=== PATIENT | male | born 1980 | race African-American/Black ===

== ENCOUNTER → 2018-10-26 | Outpatient (CLI) | payer OTHER ==
[2018-04-11 10:52] VITALS: BP 103/57
[~2018-10-26] MED LIST: AMOX1TAB58 PO; BACL20TA PO; DALF10TA2 PO; FAMO20TA5 PO; SOLI10TA2 PO; TAMS0.4C2 PO; mybetriq PO
--- NOTE | 2018-10-26 17:09 | KCIC ---
LUMBAR SPINE MIN 4V History: Acute left-sided back pain without sciatica Comparison: None. Findings: 5 views of the lumbar spine are submitted. There is grade 1 anterior spondylolisthesis at L4-5 and minimal posterior subluxation L5 relative to S1 and L1 relative to L2. There is multilevel lumbar facet degenerative change. There is cigh-im-mrrigkgu degenerative disc disease at L5-S1 and minimally at L4-5. There is retained stool in segments of the colon. There is negligible lumbar dextroscoliosis. Impression: 1. There is mild abnormal alignment as stated, most notable grade 1 anterior spondylolisthesis L4-5. There is multilevel facet degenerative change. There is degenerative disc disease greatest at L5-S1. Electronically signed by: Jacobo Padilla MD (10/26/2018 5:06 PM) [facility]
== END | disposition home or self-care (01) ==
LOC: KCIC 16:12
PROVIDERS: ATTEND Family Medicine
DX: M43.16 Spondylolisthesis, lumbar region (principal); M51.37 Other intervertebral disc degeneration, lumbosacral region; K56.41 Fecal impaction
CPT/HCPCS: 72110

== ENCOUNTER → 2019-09-03 | Outpatient (CLI) | payer OTHER ==
[2018-04-11 10:52] VITALS: BP 103/57
--- NOTE | 2019-09-03 16:39 | RAD ---
CHEST PA LATERAL History: Lymphedema Comparison: April 09, 2018 Findings: 2 views of the chest are submitted. Pericardial cardiac silhouette is unchanged. There is no significant dependent pleural fluid, pneumothorax, or lobar infiltrate. Impression: 1. No acute radiographic abnormality is identified. Electronically signed by: Jacobo Padilla MD (09/03/2019 4:36 PM) [id number]
== END | disposition home or self-care (01) ==
LOC: RAD 15:46
PROVIDERS: ATTEND Family Medicine
DX: I89.0 Lymphedema, not elsewhere classified (principal)
CPT/HCPCS: 71046

== ENCOUNTER 2020-01-04 18:11 | Inpatient (IN) | payer OTHER ==
[~2020-01-04] VITALS: Ht 185.4 cm; Wt 163.9 kg
[2020-01-04] MEDS ORDERED: ACETAMINOPHEN 500 MG TABLET PO ONE (18:45)
[2020-01-04 19:28] LABS: INFLUENZA A PATIENT NEGATIVE (NEGATIVE); INFLUENZA B PATIENT NEGATIVE (NEGATIVE)
[2020-01-04] MEDS: NORMAL SALINE IV SCH ×2 (19:30→21:04)
[2020-01-04 19:39] LABS: BASO # 0.1 x10^3/uL (0.0-0.2); BASO % 1 % (0-3); EOS # 0.2 x10^3/uL (0.0-0.7); EOS % 2 % (0-3); HEMATOCRIT 44.9 % (39.0-53.0); HEMOGLOBIN 15.3 g/dL (13.0-17.5); LYMPH # 0.9 x10^3/uL (1.0-4.8); LYMPH % 8 % (24-48); MEAN CORPUSCULAR HEMOGLOBIN 28 pg (25-35); MEAN CORPUSCULAR HGB CONC 34 g/dL (31-37); MEAN CORPUSCULAR VOLUME 81 fL (79-100); MONO # 1.4 x10^3/uL (0.0-1.1); MONO % 13 % (0-9); NEUT # 8.1 x10^3/uL (1.8-7.7); NEUT % 76 % (31-73); PLATELET COUNT 189 x10^3/uL (140-400); RED BLOOD COUNT 5.53 x10^6/uL (4.30-5.70); RED CELL DISTRIBUTION WIDTH 14.9 % (11.5-14.5); WHITE BLOOD COUNT 10.6 x10^3/uL (4.0-11.0)
[2020-01-04 19:49] LABS: PROTHROMBIN TIME PATIENT 14.1 SEC (11.7-14.0)
--- NOTE | 2020-01-04 19:53 | PHYS DOC ---
Past Medical History Past Medical History: Other Additional Past Medical Histor: MS, SPINAL STENOSIS (HAWA SAUNDERS APRN) Past Surgical History: Other Additional Past Surgical Histo: ADULT CIRCUMCISION (HAWA SAUNDERS APRN) Smoking Status: Former Smoker Alcohol Use: None Drug Use: None (HAWA SAUNDERS APRN) General Adult EDM: Chief Complaint: WEAKNESS/GENERALIZED HPI: HPI: Patient is a 39 year old male with history of MS who presents to the ED today complaining of generalized weakness. Patient states symptoms began 3 days ago. He states he is usually able to get up and ambulate and do his activities of daily living with no issues. He states for the last 3 days has been unable to get up and move. He states his mother typically helps him but he has been unable to get as much help from the mother because he is immobile right now. He also states he has a wound on his buttocks. Patient denies any fever though he is febrile in the ED. Denies any coughing or congestion. (HAWA SAUNDERS APRN) Review of Systems: Review of Systems: Constitutional: Reports generalized weakness denies fever or chills. [] Eyes: Denies change in visual acuity. [] HENT: Denies nasal congestion or sore throat. [] Respiratory: Denies cough or shortness of breath. [] Cardiovascular: Denies chest pain or edema. [] GI: Denies abdominal pain, nausea, vomiting, bloody stools or diarrhea. [] : Denies dysuria. [] Musculoskeletal: Denies back pain or joint pain. [] Integument: Denies rash. [] Neurologic: Denies headache, focal weakness or sensory changes. Psychiatric: Denies depression or anxiety. [] (HAWA SAUNDERS APRN) Heart Score: Risk Factors: Risk Factors: DM, Current or recent (<one month) smoker, HTN, HLP, family history of CAD, obesity. Risk Scores: Score 0 - 3: 2.5% MACE over next 6 weeks - Discharge Home Score 4 - 6: 20.3% MACE over next 6 weeks - Admit for Clinical Observation Score 7 - 10: 72.7% MACE over next 6 weeks - Early Invasive Strategies (HAWA SAUNDERS APRN) Current Medications: Current Medications Medications (Trade) Dose Ordered Sig/Hayde Start Time Stop Time Status Last Admin Dose Admin Acetaminophen (Tylenol) 1,000 mg 1X ONCE 01/04/20 18:45 01/04/20 18:46 DC 01/04/20 18:49 1,000 MG Sodium Chloride 2,400 ml @ 2,400 mls/hr Q1H 01/04/20 18:35 01/04/20 19:30 2,400 MLS/HR (HAWA SAUNDERS APRN) Allergies: Allergies: Allergies Coded Allergies Type Severity Reaction Last Updated Verified No Known Drug Allergies 04/09/18 No (HAWA SAUNDERS APRN) Physical Exam: PE: Constitutional: Well developed, well nourished, no acute distress, non-toxic appearance. [] HENT: Normocephalic, atraumatic, bilateral external ears normal, oropharynx moist, no oral exudates, nose normal. [] Eyes: PERRLA, EOMI, conjunctiva normal, no discharge. [] Neck: Normal range of motion, no tenderness, supple, no stridor. [] Cardiovascular:Heart rate regular rhythm, no murmur [] Lungs & Thorax: Bilateral breath sounds clear to auscultation [] Abdomen: Bowel sounds normal, soft, no tenderness, no masses, no pulsatile masses. [] Skin: Warm, dry, stage I ulcer on the buttocks 5X2cm Back: No tenderness, no CVA tenderness. [] Extremities: No tenderness, no cyanosis, no clubbing, ROM intact, no edema. [] Neurologic: Alert and oriented X 3, normal motor function, normal sensory function, no focal deficits noted. Cranial nerves II through XII intact Psychologic: Affect normal, judgement normal, mood normal. [] (HAWA SAUNDERS [employer]ISON GUARD) Current Patient Data: Labs: Laboratory Tests Test 01/04/20 18:55 01/04/20 19:29 Influenza Type A Antigen Negative (NEGATIVE) Influenza Type B Antigen Negative (NEGATIVE) White Blood Count 10.6 x10^3/uL (4.0-11.0) Red Blood Count 5.53 x10^6/uL (4.30-5.70) Hemoglobin 15.3 g/dL (13.0-17.5) Hematocrit 44.9 % (39.0-53.0) Mean Corpuscular Volume 81 fL (79-100) Mean Corpuscular Hemoglobin 28 pg (25-35) Mean Corpuscular Hemoglobin Concent 34 g/dL (31-37) Red Cell Distribution Width 14.9 % (11.5-14.5) H Platelet Count 189 x10^3/uL (140-400) Neutrophils (%) (Auto) 76 % (31-73) H Lymphocytes (%) (Auto) 8 % (24-48) L Monocytes (%) (Auto) 13 % (0-9) H Eosinophils (%) (Auto) 2 % (0-3) Basophils (%) (Auto) 1 % (0-3) Neutrophils # (Auto) 8.1 x10^3/uL (1.8-7.7) H Lymphocytes # (Auto) 0.9 x10^3/uL (1.0-4.8) L Monocytes # (Auto) 1.4 x10^3/uL (0.0-1.1) H Eosinophils # (Auto) 0.2 x10^3/uL (0.0-0.7) Basophils # (Auto) 0.1 x10^3/uL (0.0-0.2) Laboratory Tests 01/04/20 19:29 Vital Signs: Vital Signs Date Time Temp Pulse Resp B/P (MAP) Pulse Ox O2 Delivery O2 Flow Rate FiO2 01/04/20 18:12 100.5 120 18 139/98 (112) 97 Room Air 100.5 (HAWA SAUNDERS APRN) EKG: EK interpreted by Dr. Sandoval sinus tachycardia HR 118 no STEMI[] (HAWA SAUNDERS APRN) Radiology/Procedures: Radiology/Procedures: PROCEDURE: PORTABLE CHEST 1V Exam: Chest one view INDICATION: Fever TECHNIQUE: Frontal view of the chest Comparisons: 09/03/2019 FINDINGS: The cardiomediastinal silhouette and pulmonary vessels are within normal limits. The lung and pleural spaces are clear. IMPRESSION: No acute cardiopulmonary process. Electronically signed by: Sabrina King MD (01/04/2020 8:23 PM) [id number] DICTATED and SIGNED BY: SABRINA KING MD DATE: 01/04/202022 (HAWA SAUNDERS APRN) Course & Med Decision Making: Course & Med Decision Making Pertinent Labs and Imaging studies reviewed. (See chart for details) This is a 39-year-old male patient who presents the ED today complaining of generalized weakness for 3 days. Patient has a history of MS. He states his been unable to get up and move for 3 days. He arrives in the ED running a fever with a temperature of 100.5 with a heart rate in the 120s. Sepsis protocol was initiated. Rocephin and azithromycin were ordered. CBC with a normal WBC, CMP with no acute findings Troponin 0 0.614. Patient was given aspirin. Spoke with Dr. Diaz who requested we give patient Lovenox. Spoke with Dr. Gamboa who accepted patient for admission Patient's mother called reporting she is not able to care for patient under his current condition. Social service consult was placed. (HAWA SAUNDERS APRN) Course & Med Decision Making I have reviewed the PA/CORPORATION OFFICER's note and Plan of Care. I was available for consulta tion as needed during the patient's visit in the emergency department. I agree with the clinical impression, plans and disposition. (NHAN SANDOVAL MD) Dragon Disclaimer: Dragon Disclaimer: This electronic medical record was generated, in whole or in part, using a voice recognition dictation system. (HAWA SAUNDERS APRN) Departure Departure Impression: Primary Impression: Fever Qualified Codes: R50.9 - Fever, unspecified Additional Impressions: Generalized weakness Non-ST elevation CO (NSTEMI) Person under investigation for COVID-19 Disposition: ADMITTED INPATIENT Condition: STABLE Referrals: Usama CHEEK MD (PCP) Justicifation of Admission Dx: Justifications for Admission: Justification of Admission Dx: Yes (HAWA SAUNDERS APRN) HAWA SAUNDERS APRN Jan 04, 2020 19:53 NHAN SANDOVAL MD Jan 04, 2020 20:49
[2020-01-04 20:03] LABS: CALCIUM 8.6 mg/dL (8.5-10.1); CREATININE 1.3 mg/dL (0.7-1.3); POTASSIUM 3.9 mmol/L (3.5-5.1)
[2020-01-04 20:08] LABS: ALBUMIN 3.1 g/dL (3.4-5.0); ALBUMIN/GLOBULIN RATIO 0.7 (1.0-1.7); TOTAL PROTEIN 7.6 g/dL (6.4-8.2)
--- NOTE | 2020-01-04 20:26 | RAD ---
Exam: Chest one view INDICATION: Fever TECHNIQUE: Frontal view of the chest Comparisons: 09/03/2019 FINDINGS: The cardiomediastinal silhouette and pulmonary vessels are within normal limits. The lung and pleural spaces are clear. IMPRESSION: No acute cardiopulmonary process. Electronically signed by: Sabrina Florian MD (01/04/2020 8:23 PM) [id number]
[2020-01-04] MEDS ORDERED: AZITHRMYCN 500MG IVPB FOR OMNI 250 ML IV ONE (20:30)
[2020-01-04] MEDS ORDERED: ASPIRIN 325 MG TABLET PO ONE (20:30)
[2020-01-04] MEDS ORDERED: cefTRIAXone IV Push 1 GM VIAL. IVP ONE (20:30)
[2020-01-04] MEDS ORDERED: ACETAMINOPHEN 325 MG TABLET. PO PRN (20:45)
[2020-01-04] MEDS ORDERED: ONDANSETRON PF 4 MG/2 ML VIAL. IV PRN ×2 (20:45→22:45)
[2020-01-04] MEDS ORDERED: MORPHINE SULFATE 4 MG/ML VIAL. IV PRN (20:45)
[2020-01-04 21:19] LABS: BILIRUBIN,URINE SMALL (NEG); CLARITY,URINE CLOUDY; COLOR,URINE AMBER; NITRITE,URINE POSITIVE (NEG); PH,URINE 5.5 (<5.0-8.0); PROTEIN,URINE 100 mg/dL (NEG-TRACE)
[2020-01-04 21:26] LABS: SQUAMOUS EPITHELIAL CELL,UR FEW /LPF
[2020-01-04 21:27] LABS: AMORPHOUS SEDIMENT,UR PRESENT /HPF; BACTERIA,URINE MODERATE /HPF (0-FEW); WBC,URINE TNTC /HPF (0-4)
[2020-01-04] MEDS ORDERED: MAG HYDROX/ALUMINUM HYD/SIMETH 30 ML ORAL.SUSP PO PRN (22:45)
[2020-01-04] MEDS ORDERED: guaiFENesin ORAL 200 MG/10 ML LIQUID. PO PRN (22:45)
[2020-01-04] MEDS ORDERED: ACETAMINOPHEN 650 MG SUPP.RECT. PR PRN (22:45)
[2020-01-04] MEDS ORDERED: cloNIDine HCL 0.1 MG TABLET PO PRN (22:45)
[2020-01-04] MEDS ORDERED: DOCUSATE SODIUM 100 MG CAPSULE. PO PRN (22:45)
[2020-01-04] MEDS ORDERED: 0.9 % SODIUM CHLORIDE 10 ML DISP.SYRIN. IV PRN (22:45)
[2020-01-04] MEDS ORDERED: ALBUTEROL SULFATE 2.5 MG/3 ML NEBU. NEB PRN (22:45)
[2020-01-04] MEDS ORDERED: SODIUM PHOSPHATES 19/7GM 133 ML ENEMA. PR PRN (22:45)
[2020-01-04 23:43] VITALS: BP 145/93
[2020-01-04] MEDS: IV NORMAL SALINE 1000ML BAG 1,000 ML IV SCH (23:52)
[2020-01-04] MEDS: ENOXAPARIN 40 MG/0.4 ML SYRINGE. SQ SCH (23:53)
[2020-01-05] MEDS ORDERED: VITA80003 PO (00:17)
[2020-01-05] MEDS ORDERED: MIRA25TA PO (00:17)
[2020-01-05] MEDS ORDERED: ESOM40CA PO (00:17)
[2020-01-05] MEDS ORDERED: MV-M1TAB7 PO (00:17)
[2020-01-05] MEDS ORDERED: FURO40TA4 PO (00:17)
[2020-01-05] MEDS ORDERED: OMEG-152 PO (00:17)
[2020-01-05] MEDS ORDERED: CHOL500021 PO (00:19)
[2020-01-05] MEDS: NORMAL SALINE IV SCH (01:45)
[2020-01-05 03:30] VITALS: BP 143/56
[2020-01-05 05:54] LABS: CALCIUM 8.3 mg/dL (8.5-10.1); CREATININE 1.3 mg/dL (0.7-1.3); POTASSIUM 4.6 mmol/L (3.5-5.1)
[2020-01-05 05:58] LABS: BASO # 0.1 x10^3/uL (0.0-0.2); BASO % 1 % (0-3); EOS # 0.3 x10^3/uL (0.0-0.7); EOS % 4 % (0-3); HEMATOCRIT 45.2 % (39.0-53.0); HEMOGLOBIN 14.9 g/dL (13.0-17.5); LYMPH # 1.3 x10^3/uL (1.0-4.8); LYMPH % 14 % (24-48); MEAN CORPUSCULAR HEMOGLOBIN 28 pg (25-35); MEAN CORPUSCULAR HGB CONC 33 g/dL (31-37); MEAN CORPUSCULAR VOLUME 84 fL (79-100); MONO # 1.7 x10^3/uL (0.0-1.1); MONO % 18 % (0-9); NEUT # 6.2 x10^3/uL (1.8-7.7); NEUT % 65 % (31-73); PLATELET COUNT 149 x10^3/uL (140-400); RED BLOOD COUNT 5.35 x10^6/uL (4.30-5.70); RED CELL DISTRIBUTION WIDTH 15.7 % (11.5-14.5); WHITE BLOOD COUNT 9.5 x10^3/uL (4.0-11.0)
[2020-01-05 07:15] VITALS: BP 145/68
--- NOTE | 2020-01-05 08:28 | PDOC1 ---
History and Physical Date of Admission Date of Admission DATE: 01/05/20 TIME: 08:27 Identification/Chief Complaint Chief Complaint seen in er with fever 39 year old male with history of MS who presented to the ED 01/03 complaining of generalized weakness. symptoms began 3 days ago. He states he is usually able to get up and ambulate and do his activities of daily living with no issues. // for the last 3 days has been unable to get up and move. mother typically helps him but he has been unable to get as much help from the mother because he is immobile currently . He also states he has a wound on his buttocks. Patient denies any fever though he is febrile in the ED. Denies any coughing or congestion. IN ER , elevated troponins at 0.614 and 0.758. NOTED No chest pain Past Medical History Past Medical History Past Medical History: Other Additional Past Medical Histor: MS, SPINAL STENOSIS Past Surgical History: Other Additional Past Surgical Histo: ADULT CIRCUMCISION Smoking Status: Former Smoker Alcohol Use: None Drug Use: None FHX OBESITY Psych: Anxiety Family History Family History: High Cholestrol, Hypertension Social History Smoke: No ALCOHOL: none Drugs: None Current Problem List Problem List Problems Medical Problems: (1) Fever Status: Acute (2) Generalized weakness Status: Acute (3) Non-ST elevation [place] (NSTEMI) Status: Acute (4) Person under investigation for COVID-19 Status: Acute Current Medications Current Medications Current Medications Sodium Chloride 2,400 ml @ 2,400 mls/hr Q1H IV Last administered on 01/04/20at 21:04; Start 01/04/20 at 18:35; Stop 01/05/20 at 01:45; Status DC Acetaminophen (Tylenol) 1,000 mg 1X ONCE PO Last administered on 01/04/20at 18:49; Start 01/04/20 at 18:45; Stop 01/04/20 at 18:46; Status DC Azithromycin 250 ml @ 250 mls/hr 1X ONCE IV Last administered on 01/04/20at 21:05; Start 01/04/20 at 20:30; Stop 01/04/20 at 21:29; Status DC Ceftriaxone Sodium (Rocephin) 1 gm 1X ONCE IVP Last administered on 01/04/20at 21:05; Start 01/04/20 at 20:30; Stop 01/04/20 at 20:31; Status DC Aspirin (Aurora Aspirin) 325 mg 1X ONCE PO Last administered on 01/04/20at 2 1:04; Start 01/04/20 at 20:30; Stop 01/04/20 at 20:31; Status DC Enoxaparin Sodium (Lovenox Per Pharmacy Treatment Dosing) 1 each 1X STAT [facility] ; Start 01/04/20 at 20:28; Stop 01/04/20 at 20:31; Status DC Enoxaparin Sodium (Lovenox 150mg Syringe) 150 mg 1X ONCE SQ Last administered on 01/04/20at 21:04; Start 01/04/20 at 20:45; Stop 01/04/20 at 20:46; Status DC Ondansetron HCl (Zofran) 4 mg PRN Q8HRS PRN IV NAUSEA/VOMITING; Start 01/04/20 at 20:45; Stop 01/04/20 at 22:51; Status DC Morphine Sulfate (Morphine Sulfate) 4 mg PRN Q2HR PRN IV PAIN; Start 01/04/20 at 20:45; Stop 01/05/20 at 20:44 Acetaminophen (Tylenol) 650 mg PRN Q4HRS PRN PO FEVER > 100.3'F; Start 01/04/20 at 20:45; Stop 01/04/20 at 22:51; Status DC Sodium Chloride (Normal Saline Flush) 3 ml QSHIFT PRN IV AFTER MEDS AND BLOOD DRAWS; Start 01/04/20 at 22:45 Sodium Chloride 1,000 ml @ 100 mls/hr Q10H IV Last administered on 01/04/20at 23:52; Start 01/04/20 at 22:39 Ondansetron HCl (Zofran) 4 mg PRN Q4HRS PRN IV NAUSEA/VOMITING 1ST CHOICE; Start 01/04/20 at 22:45 Acetaminophen (Tylenol) 650 mg PRN Q4HRS PRN PO TEMP OVER 100.4F OR MILD PAIN; Start 01/04/20 at 22:45 Acetaminophen (Tylenol Supp) 650 mg PRN Q4HRS PRN NM TEMP OVER 100.4F OR MILD PAIN; Start 01/04/20 at 22:45 Al Hydroxide/Mg Hydroxide (Mylanta Plus Xs) 30 ml PRN DAILY PRN PO HEARTBURN / GAS; Start 01/04/20 at 22:45 Clonidine HCl (Catapres) 0.1 mg PRN Q6HRS PRN PO SBP>160 OR DBP>90; Start 01/04/20 at 22:45 Sodium Monofluorophosphate (Fleet Adult) 133 ml PRN DAILY PRN NM CONSTIPATION 1ST CHOICE; Start 01/04/20 at 22:45 Docusate Sodium (Colace) 100 mg PRN BID PRN PO HARD STOOLS; Start 01/04/20 at 22:45 Albuterol Sulfate (Ventolin Neb Soln) 2.5 mg PRN Q4HRS PRN NEB SHORTNESS OF BREATH; Start 01/04/20 at 22:45 Guaifenesin (Robitussin) 200 mg PRN Q4HRS PRN PO COUGH; Start 01/04/20 at 22:45 Lorazepam (Ativan) 0.5 mg PRN Q4HRS PRN PO ANXIETY / AGITATION; Start 01/04/20 at 22:45 Enoxaparin Sodium (Lovenox 40mg Syringe) 40 mg BID SQ Last administered on 01/04/20at 23:53; Start 01/04/20 at 22:45 Ceftriaxone Sodium (Rocephin) 1 gm Q24H IVP ; Start 01/05/20 at 20:00 Active Scripts Active Reported D3-50 (Cholecalciferol (Vitamin D3)) 50,000 Unit Capsule 125 Mcg PO DAILY Fish Oil 1,000 Mg Softgel ([place]-3/Dha/Epa/Fish Oil) 1 Each Capsule 1 Each PO DAILY Furosemide 40 Mg Tablet 40 Mg PO DAILY Nexium Capsule (Esomeprazole Magnesium) 40 Mg Capsule.dr 40 Mg PO DAILYAC Vitamin A 8,000 Unit Capsule 2,400 Mcg PO DAILY Myrbetriq (Mirabegron) 25 Mg Tab.er.24h 25 Mg PO DAILY Dalfampridine ER (Dalfampridine) 10 Mg Tab.er.12h 10 Mg PO Q12HR Baclofen 20 Mg Tablet 1 Tab PO TID Tamsulosin Hcl 0.4 Mg Cap.er.24h 2 Cap PO DAILY Allergies Allergies: Coded Allergies: No Known Drug Allergies (Unverified , 04/09/18) ROS Review of System Constitutional: Reports generalized weakness denies fever or chills. [] Eyes: Denies change in visual acuity. [] HENT: Denies nasal congestion or sore throat. [] Respiratory: Denies cough or shortness of breath. [] Cardiovascular: Denies chest pain or edema. [] GI: Denies abdominal pain, nausea, vomiting, bloody stools or diarrhea. [] : Denies dysuria. [] Musculoskeletal: Denies back pain or joint pain. [] Integument: Denies rash. [] Neurologic: Denies headache, focal weakness or sensory changes. Psychiatric: Denies depression or anxiety. [] 14 PT ROS OTHERWISE NEG General: YES: Fatigue Hematological and Lymphatic: No: Bleeding Problems, Blood Clots, Blood Transfusions, Brusing, Night Sweats, Pallor, Swollen Lymph Nodes, Other Cardiovascular: No Chest Pain, No Palpitations, No Orthopnea, No Paroxysmal Noc. Dyspnea, No Edema, No Lt Headedness, No Other Musculoskeletal: Yes Gait Disturbance Neurological: Yes Gait Disturbance Physical Exam Physical Exam Constitutional: Well developed, well nourished, no acute distress, non-toxic appearance. [] HENT: Normocephalic, atraumatic, bilateral external ears normal, oropharynx moist, no oral exudates, nose normal. [] Eyes: PERRLA, EOMI, conjunctiva normal, no discharge. [] Neck: Normal range of motion, no tenderness, supple, no stridor. [] Cardiovascular:Heart rate regular rhythm, no murmur [] Lungs & Thorax: Bilateral breath sounds clear to auscultation [] Abdomen: Bowel sounds normal, soft, no tenderness, no masses, no pulsatile masses. [] Skin: Warm, dry, stage I ulcer on the buttocks 5X2cm Back: No tenderness, no CVA tenderness. [] Extremities: No tenderness, no cyanosis, no clubbing, ROM intact, no edema. [] Neurologic: Alert and oriented X 3, normal motor function, normal sensory function, no focal deficits noted. Cranial nerves II through XII intact Psychologic: Affect normal, judgement normal, mood normal. [] General: Alert, Oriented X3, Cooperative Breasts: Not examined Rectal Exam: not examined Extremities: No cyanosis Neuro: Normal speech, Cranial nerves 3-12 NL Psych/Mental Status: Mental status NL, Mood NL Vitals Vitals Vital Signs Date Time Temp Pulse Resp B/P (MAP) Pulse Ox O2 Delivery O2 Flow Rate FiO2 01/05/20 04:12 Room Air 01/05/20 03:30 97.4 102 17 143/56 (85) 97 97.4 Labs Labs Laboratory Tests Test 01/04/20 18:55 01/04/20 19:29 01/04/20 21:12 01/05/20 00:10 Influenza Type A Antigen Negative (NEGATIVE) Influenza Type B Antigen Negative (NEGATIVE) White Blood Count 10.6 x10^3/uL (4.0-11.0) Red Blood Count 5.53 x10^6/uL (4.30-5.70) Hemoglobin 15.3 g/dL (13.0-17.5) Hematocrit 44.9 % (39.0-53.0) Mean Corpuscular Volume 81 fL (79-100) Mean Corpuscular Hemoglobin 28 pg (25-35) Mean Corpuscular Hemoglobin Concent 34 g/dL (31-37) Red Cell Distribution Width 14.9 % (11.5-14.5) Platelet Count 189 x10^3/uL (140-400) Neutrophils (%) (Auto) 76 % (31-73) Lymphocytes (%) (Auto) 8 % (24-48) Monocytes (%) (Auto) 13 % (0-9) Eosinophils (%) (Auto) 2 % (0-3) Basophils (%) (Auto) 1 % (0-3) Neutrophils # (Auto) 8.1 x10^3/uL (1.8-7.7) Lymphocytes # (Auto) 0.9 x10^3/uL (1.0-4.8) Monocytes # (Auto) 1.4 x10^3/uL (0.0-1.1) Eosinophils # (Auto) 0.2 x10^3/uL (0.0-0.7) Basophils # (Auto) 0.1 x10^3/uL (0.0-0.2) Prothrombin Time 14.1 SEC (11.7-14.0) Prothromb Time International Ratio 1.1 (0.8-1.1) Activated Partial Thromboplast Time 32 SEC (24-38) Sodium Level 135 mmol/L (136-145) Potassium Level 3.9 mmol/L (3.5-5.1) Chloride Level 100 mmol/L (98-107) Carbon Dioxide Level 24 mmol/L (21-32) Anion Gap 11 (6-14) Blood Urea Nitrogen 21 mg/dL (8-26) Creatinine 1.3 mg/dL (0.7-1.3) Estimated GFR (Cockcroft-Gault) 74.0 BUN/Creatinine Ratio 16 (6-20) Glucose Level 143 mg/dL (70-99) Lactic Acid Level 1.3 mmol/L (0.4-2.0) Calcium Level 8.6 mg/dL (8.5-10.1) Magnesium Level 2.0 mg/dL (1.8-2.4) Ferritin 371 ng/mL (26-388) Total Bilirubin 1.0 mg/dL (0.2-1.0) Aspartate Amino Transf (AST/SGOT) 761 U/L (15-37) Alanine Aminotransferase (ALT/SGPT) 121 U/L (16-63) Alkaline Phosphatase 86 U/L (46-116) Creatine Kinase 26308 U/L (39-308) Creatine Kinase MB (Mass) 8.8 ng/mL (0.0-3.6) Creatine Kinase MB Relative Index 0.0 % (0-4) Troponin I Quantitative 0.614 ng/mL (0.000-0.055) 0.653 ng/mL (0.000-0.055) Total Protein 7.6 g/dL (6.4-8.2) Albumin 3.1 g/dL (3.4-5.0) Albumin/Globulin Ratio 0.7 (1.0-1.7) Procalcitonin 0.66 ng/mL (0.00-0.10) Thyroid Stimulating Hormone (TSH) 2.614 uIU/mL (0.358-3.74) Urine Collection Type Unknown Urine Color Elsy Urine Clarity Cloudy Urine pH 5.5 (<5.0-8.0) Urine Specific Guin 1.025 (1.000-1.030) Urine Protein 100 mg/dL (NEG-TRACE) Urine Glucose (UA) Negative mg/dL (NEG) Urine Ketones (Stick) 15 mg/dL (NEG) Urine Blood Large (NEG) Urine Nitrite Positive (NEG) Urine Bilirubin Small (NEG) Urine Urobilinogen Dipstick 1.0 mg/dL (0.2 mg/dL) Urine Leukocyte Esterase Moderate (NEG) Urine RBC 6-10 /HPF (0-2) Urine WBC Tntc /HPF (0-4) Urine Squamous Epithelial Cells Few /LPF Urine Amorphous Sediment Present /HPF Urine Bacteria Moderate /HPF (0-FEW) Urine Mucus Mod /LPF Test 01/05/20 05:00 White Blood Count 9.5 x10^3/uL (4.0-11.0) Red Blood Count 5.35 x10^6/uL (4.30-5.70) Hemoglobin 14.9 g/dL (13.0-17.5) Hematocrit 45.2 % (39.0-53.0) Mean Corpuscular Volume 84 fL (79-100) Mean Corpuscular Hemoglobin 28 pg (25-35) Mean Corpuscular Hemoglobin Concent 33 g/dL (31-37) Red Cell Distribution Width 15.7 % (11.5-14.5) Platelet Count 149 x10^3/uL (140-400) Neutrophils (%) (Auto) 65 % (31-73) Lymphocytes (%) (Auto) 14 % (24-48) Monocytes (%) (Auto) 18 % (0-9) Eosinophils (%) (Auto) 4 % (0-3) Basophils (%) (Auto) 1 % (0-3) Neutrophils # (Auto) 6.2 x10^3/uL (1.8-7.7) Lymphocytes # (Auto) 1.3 x10^3/uL (1.0-4.8) Monocytes # (Auto) 1.7 x10^3/uL (0.0-1.1) Eosinophils # (Auto) 0.3 x10^3/uL (0.0-0.7) Basophils # (Auto) 0.1 x10^3/uL (0.0-0.2) Sodium Level 137 mmol/L (136-145) Potassium Level 4.6 mmol/L (3.5-5.1) Chloride Level 104 mmol/L (98-107) Carbon Dioxide Level 23 mmol/L (21-32) Anion Gap 10 (6-14) Blood Urea Nitrogen 18 mg/dL (8-26) Creatinine 1.3 mg/dL (0.7-1.3) Estimated GFR (Cockcroft-Gault) 74.0 Glucose Level 100 mg/dL (70-99) Calcium Level 8.3 mg/dL (8.5-10.1) Magnesium Level 2.3 mg/dL (1.8-2.4) Troponin I Quantitative 0.758 ng/mL (0.000-0.055) ON-Opc-Z-Type Natriuretic Peptide 31 pg/mL (0-124) Laboratory Tests Test 01/04/20 18:55 01/04/20 19:29 01/04/20 21:12 01/05/20 00:10 Influenza Type A Antigen Negative (NEGATIVE) Influenza Type B Antigen Negative (NEGATIVE) White Blood Count 10.6 x10^3/uL (4.0-11.0) Red Blood Count 5.53 x10^6/uL (4.30-5.70) Hemoglobin 15.3 g/dL (13.0-17.5) Hematocrit 44.9 % (39.0-53.0) Mean Corpuscular Volume 81 fL (79-100) Mean Corpuscular Hemoglobin 28 pg (25-35) Mean Corpuscular Hemoglobin Concent 34 g/dL (31-37) Red Cell Distribution Width 14.9 % (11.5-14.5) Platelet Count 189 x10^3/uL (140-400) Neutrophils (%) (Auto) 76 % (31-73) Lymphocytes (%) (Auto) 8 % (24-48) Monocytes (%) (Auto) 13 % (0-9) Eosinophils (%) (Auto) 2 % (0-3) Basophils (%) (Auto) 1 % (0-3) Neutrophils # (Auto) 8.1 x10^3/uL (1.8-7.7) Lymphocytes # (Auto) 0.9 x10^3/uL (1.0-4.8) Monocytes # (Auto) 1.4 x10^3/uL (0.0-1.1) Eosinophils # (Auto) 0.2 x10^3/uL (0.0-0.7) Basophils # (Auto) 0.1 x10^3/uL (0.0-0.2) Prothrombin Time 14.1 SEC (11.7-14.0) Prothromb Time International Ratio 1.1 (0.8-1.1) Activated Partial Thromboplast Time 32 SEC (24-38) Sodium Level 135 mmol/L (136-145) Potassium Level 3.9 mmol/L (3.5-5.1) Chloride Level 100 mmol/L (98-107) Carbon Dioxide Level 24 mmol/L (21-32) Anion Gap 11 (6-14) Blood Urea Nitrogen 21 mg/dL (8-26) Creatinine 1.3 mg/dL (0.7-1.3) Estimated GFR (Cockcroft-Gault) 74.0 BUN/Creatinine Ratio 16 (6-20) Glucose Level 143 mg/dL (70-99) Lactic Acid Level 1.3 mmol/L (0.4-2.0) Calcium Level 8.6 mg/dL (8.5-10.1) Magnesium Level 2.0 mg/dL (1.8-2.4) Ferritin 371 ng/mL (26-388) Total Bilirubin 1.0 mg/dL (0.2-1.0) Aspartate Amino Transf (AST/SGOT) 761 U/L (15-37) Alanine Aminotransferase (ALT/SGPT) 121 U/L (16-63) Alkaline Phosphatase 86 U/L (46-116) Creatine Kinase 31296 U/L (39-308) Creatine Kinase MB (Mass) 8.8 ng/mL (0.0-3.6) Creatine Kinase MB Relative Index 0.0 % (0-4) Troponin I Quantitative 0.614 ng/mL (0.000-0.055) 0.653 ng/mL (0.000-0.055) Total Protein 7.6 g/dL (6.4-8.2) Albumin 3.1 g/dL (3.4-5.0) Albumin/Globulin Ratio 0.7 (1.0-1.7) Procalcitonin 0.66 ng/mL (0.00-0.10) Thyroid Stimulating Hormone (TSH) 2.614 uIU/mL (0.358-3.74) Urine Collection Type Unknown Urine Color Elsy Urine Clarity Cloudy Urine pH 5.5 (<5.0-8.0) Urine Specific Guin 1.025 (1.000-1.030) Urine Protein 100 mg/dL (NEG-TRACE) Urine Glucose (UA) Negative mg/dL (NEG) Urine Ketones (Stick) 15 mg/dL (NEG) Urine Blood Large (NEG) Urine Nitrite Positive (NEG) Urine Bilirubin Small (NEG) Urine Urobilinogen Dipstick 1.0 mg/dL (0.2 mg/dL) Urine Leukocyte Esterase Moderate (NEG) Urine RBC 6-10 /HPF (0-2) Urine WBC Tntc /HPF (0-4) Urine Squamous Epithelial Cells Few /LPF Urine Amorphous Sediment Present /HPF Urine Bacteria Moderate /HPF (0-FEW) Urine Mucus Mod /LPF Test 01/05/20 05:00 White Blood Count 9.5 x10^3/uL (4.0-11.0) Red Blood Count 5.35 x10^6/uL (4.30-5.70) Hemoglobin 14.9 g/dL (13.0-17.5) Hematocrit 45.2 % (39.0-53.0) Mean Corpuscular Volume 84 fL (79-100) Mean Corpuscular Hemoglobin 28 pg (25-35) Mean Corpuscular Hemoglobin Concent 33 g/dL (31-37) Red Cell Distribution Width 15.7 % (11.5-14.5) Platelet Count 149 x10^3/uL (140-400) Neutrophils (%) (Auto) 65 % (31-73) Lymphocytes (%) (Auto) 14 % (24-48) Monocytes (%) (Auto) 18 % (0-9) Eosinophils (%) (Auto) 4 % (0-3) Basophils (%) (Auto) 1 % (0-3) Neutrophils # (Auto) 6.2 x10^3/uL (1.8-7.7) Lymphocytes # (Auto) 1.3 x10^3/uL (1.0-4.8) Monocytes # (Auto) 1.7 x10^3/uL (0.0-1.1) Eosinophils # (Auto) 0.3 x10^3/uL (0.0-0.7) Basophils # (Auto) 0.1 x10^3/uL (0.0-0.2) Sodium Level 137 mmol/L (136-145) Potassium Level 4.6 mmol/L (3.5-5.1) Chloride Level 104 mmol/L (98-107) Carbon Dioxide Level 23 mmol/L (21-32) Anion Gap 10 (6-14) Blood Urea Nitrogen 18 mg/dL (8-26) Creatinine 1.3 mg/dL (0.7-1.3) Estimated GFR (Cockcroft-Gault) 74.0 Glucose Level 100 mg/dL (70-99) Calcium Level 8.3 mg/dL (8.5-10.1) Magnesium Level 2.3 mg/dL (1.8-2.4) Troponin I Quantitative 0.758 ng/mL (0.000-0.055) LU-Kow-Z-Type Natriuretic Peptide 31 pg/mL (0-124) Images Images MRI Brain with and without contrast History: Extremity weakness, unsteady gait, multiple sclerosis Technique: Multiplanar, multi sequential pre and postcontrast MR imaging was performed of the brain. Comparison: None Findings: There is multifocal moderate T2 and FLAIR hyperintense abnormality of the supratentorial parenchyma bilaterally, multiple foci associated with variable T1 hypointense signal. Multiple foci have a perpendicular orientation relative to the lateral ventricles. There is no abnormal intracranial enhancement. There is no midline shift or intra-axial mass effect. Ventricular size is within normal limits. Cerebral volume is within normal limits. There is no evidence of recent infarct. There is preservation of the major arterial flow voids at the skull base. There is prominent disconjugate gaze. There is patchy moderate ethmoid air cell mucosal thickening greater anteriorly. There is a small air-fluid level of the left maxillary sinus. There is other mild maxillary sinus and sphenoid sinus mucosal thickening. Frontal sinus is not significantly pneumatized. Mastoid air cells are aerated. Cerebellar tonsils are normal in location. There is preservation of marrow signal of the clivus. There is no abnormality of pineal gland or pituitary gland. Impression: 1. There is evidence of multiple sclerosis, no abnormal intracranial enhancement. 2. There is paranasal sinus mucosal thickening, also left maxillary sinus air-fluid level which may be seen with acute sinusitis. 3. There is prominent disconjugate gaze. Electronically signed by: Jeremy Castaneda MD (04/10/2018 3:28 PM) [id number] DICTATED and SIGNED BY: JEREMY CASTANEDA MD DATE: 04/10/18 1244 MRI Cervical Spine with and without contrast History: Extremity weakness, unsteady gait, history of multiple sclerosis Technique: Multiplanar, multi sequential pre and postcontrast MR imaging was performed of the cervical spine. Comparison: None Findings: There is multifocal T2 and STIR hyperintense signal abnormality of the cervical cord most notable at C2, C2-3, C3-4, C4-5, C5-6, also probably of the superior thoracic cord. There is no enhancement of the cord. There is no enhancement in the intervertebral disc spaces. Cervical vertebral body stature and AP alignment are within normal limits. There is mild degenerative disc disease at C4-C5. There are posterior annular tear C3-4 and C4-C5. There is no significant marrow edema. C2-C3: Spinal canal is adequate. There is mild narrowing of the left neural foramen mostly on developmental basis. Right neural foramen is adequate. C3-C4: There is facet degenerative change greater on the left. There is buckling of the ligamentum flavum. Central canal is narrowed to about 8 mm. There is mild narrowing of the left neural foramen, right neural foramen overall adequate. C4-C5: There is disc osteophyte complex and bulge. There is buckling of the ligamentum flavum. There is effacement of ventral and dorsal subarachnoid space with contact of the cord. Central canal is narrowed to 5 to 6 mm also with lateral recess stenosis bilaterally somewhat greater on the left. There is bilateral facet and uncovertebral degenerative change. There is fairly severe right greater than left neural foramina compromise. C5-C6: There is buckling of the ligamentum flavum. There is negligible disc osteophyte complex. Central canal is narrowed to about 7-8 mm. There is fairly severe bilateral facet degenerative change. There is [id number] left and at least moderate right neural foramina compromise. C6-C7: There is buckling of the ligamentum flavum. Central canal is minimally narrowed to about 9 mm. There is facet degenerative change. Right neural foramen is adequate, moderate to severe narrowing of the left neural foramen. C7-T1: Spinal canal is adequate. There is facet degenerative change. Right neural foramen is adequate, mild narrowing of the left neural foramen. Impression: 1. There is multifocal nonenhancing T2 and STIR hyperintense signal abnormality of the cord, evidence of inflammatory demyelinating disease. 2. There is spinal stenosis on the order of 6 mm at C4-5 with contact of the cord, lesser degree of mild spinal stenosis as described at C3-4, C5-6, C6-C7. 3. There is multilevel uncovertebral and facet degenerative change contributing to neural foramina compromise, more significant narrowing bilaterally at C4-C5 and on the left at C6-7, lesser degree of narrowing bilaterally at C5-C6. 4. There is mild degenerative disc disease and spondylosis at C4-5. Electronically signed by: Jeremy Castaneda MD (04/10/2018 2:41 PM) [email or web address] Exam: Chest one view INDICATION: Fever TECHNIQUE: Frontal view of the chest Comparisons: 09/03/2019 FINDINGS: The cardiomediastinal silhouette and pulmonary vessels are within normal limits. The lung and pleural spaces are clear. IMPRESSION: No acute cardiopulmonary process. Electronically signed by: Sabrina King MD (01/04/2020 8:23 PM) [id number] DICTATED and SIGNED BY: SABRINA KING MD DATE: 01/04/202022 DPOA REVIEW 18 MIN What Is a Power of Herb Counselor? A power of ip attorney (POA) is a legal document giving one person (the agent or [id number]) the power to act for another person (the principal). The agent can have broad legal authority or limited authority to make legal decisions about the principal's property, finances or medical care. The power of ip attorney is frequently used in the event of a principal's illness or disability, or when the principal can't be present to sign necessary legal documents for financial transactions. A power of ip attorney can end for a number of reasons, such as when the principal dies, the principal revokes it, a court invalidates it, the principal divorces their spouse, who happens to be the agent, or the agent can no longer carry out the outlined responsibilities. Conventional POAs lapse when the creator becomes incapacitated, but a durable POA remains in force to enable the agent to manage the creators affairs, and a springing POA comes into effect only if and when the creator of the POA becomes incapacitated. A medical or healthcare POA enables an agent to make medical decisions on behalf of an incapacitated person. Allen Takeaways A power of ip attorney (POA) is a legal document giving one person, the agent or [id number] the power to act for another person, the principal. The agent can have broad legal authority or limited authority to make decisions about the principal's property, finances or medical care. The power of ip attorney is often used when a principal becomes ill or disabled, or when they can't be present to sign necessary legal documents for financial transactions. Understanding Power of Herb Counselor A power of ip attorney should be considered when planning for long-term care. There are different types of POAs that fall under either a general power of ip attorney or limited power of ip attorney. A general power of ip attorney acts on behalf of the principal in any and all matters, as allowed by the state. The agent under a general POA agreement may be authorized to take care of issues such as handling bank accounts, signing checks, selling property and assets like stocks, f A limited power of ip attorney gives the agent the power to act on behalf of the principal in specific matters or events. For example, the limited POA may explicitly state that the agent is only allowed to manage the principal's longterm accounts. A limited POA may also be limited to a specific period of time (e.g., if the principal will be out of the country for, say, two years). Most perez of ip attorney documents allow an agent to represent the principal in all property and financial matters as long as the principals mental state of mind is good. If a situation occurs where the principal becomes incapable of making decisions for him or herself, the POA agreement would automatically end. However, someone who wants the POA to remain in effect after the persons health deteriorates would need to sign a durable power of ip attorney (DPOA). VTE Prophylaxis Ordered VTE Prophylaxis Devices: Yes VTE Pharmacological Prophylaxi: Yes Assessment/Plan Assessment/Plan Impression: Fever// UTI SEPSIS MORBID OBESITY Generalized weakness HX mULTIPLE SCLEROSIS Cervical spinal stenosis in 2018 , on mri head There was evidence of multiple sclerosis, no abnormal intracranial enhancement. multifocal nonenhancing T2 and STIR hyperintense signal abnormality of the cord, evidence of inflammatory demyelinating disease.spinal stenosis on the order of 6 mm at C4-5 with contact of the cord, lesser degree of mild spinal stenosis as described at C3-4, C5-6, C6-C7. Non-ST elevation [place] (NSTEMI) elevated troponins at 0.614 and 0.758. No chest pain Person under investigation for COVID-19 ADMITTED COVID 19 [facility] CONSULT CARDIOLOGY TELE 6TH FLOOR DVT PROPHYLAXIS BLOOD CULTURES NEUROLOGY CONSULT PT/OT emperic iv antibiotics Justifications for Admission Other Justification ANTONETTE MENDOZA MD Jan 05, 2020 08:28
[2020-01-05] MEDS: ENOXAPARIN 40 MG/0.4 ML SYRINGE. SQ SCH ×2 (09:45→22:47)
[2020-01-05] MEDS: IV NORMAL SALINE 1000ML BAG 1,000 ML IV SCH ×2 (09:45→18:12)
--- NOTE | 2020-01-05 10:55 | PDOC2 ---
CONSULT Date of Consult Date of Consult DATE: 01/05/20 TIME: 10:47 Reason for Consult Reason for Consult: Elevated troponin Referring Physician Referring Physician: Dr. Gamboa Identification/Chief Complaint Chief Complaint Generalized weakness Source Source: Chart review, Patient History of Present Illness Reason for Visit: The patient is a 39-year-old male who was admitted through the emergency room yesterday for 3 to 4 days of generalized weakness. The patient had a fever of 105 in the emergency room and a heart rate of 120. He was started on IV antibiotics. Overnight he has been feeling better. This morning he states that he has less fatigue. He denies any chest pain. He has a history of MS and spinal stenosis. His EKG shows no acute ischemic changes. Troponins have been minimally elevated 0.614 and 0.758. He was treated with aspirin and low-dose Lovenox overnight. COVID testing is pending. Past Medical History Cardiovascular: HTN CENTRAL NERVOUS SYSTEM: Other (MS, spinal stenosis) Family History Family History: Hypertension Social History Quit ALCOHOL: none Current Problem List Problem List Problems Medical Problems: (1) Fever Status: Acute (2) Generalized weakness Status: Acute (3) Non-ST elevation RI (NSTEMI) Status: Acute (4) Person under investigation for COVID-19 Status: Acute Current Medications Current Medications Current Medications Sodium Chloride 2,400 ml @ 2,400 mls/hr Q1H IV Last administered on 01/04/20at 21:04; Start 01/04/20 at 18:35; Stop 01/05/20 at 01:45; Status DC Acetaminophen (Tylenol) 1,000 mg 1X ONCE PO Last administered on 01/04/20at 18:49; Start 01/04/20 at 18:45; Stop 01/04/20 at 18:46; Status DC Azithromycin 250 ml @ 250 mls/hr 1X ONCE IV Last administered on 01/04/20 21:05; Start 01/04/20 at 20:30; Stop 01/04/20 at 21:29; Status DC Ceftriaxone Sodium (Rocephin) 1 gm 1X ONCE IVP Last administered on 01/04/20 21:05; Start 01/04/20 at 20:30; Stop 01/04/20 at 20:31; Status DC Aspirin (Aurora Aspirin) 325 mg 1X ONCE PO Last administered on 01/04/20at 21:04; Start 01/04/20 at 20:30; Stop 01/04/20 at 20:31; Status DC Enoxaparin Sodium (Lovenox Per Pharmacy Treatment Dosing) 1 each 1X STAT [facility] ; Start 01/04/20 at 20:28; Stop 01/04/20 at 20:31; Status DC Enoxaparin Sodium (Lovenox 150mg Syringe) 150 mg 1X ONCE SQ Last administered on 01/04/20at 21:04; Start 01/04/20 at 20:45; Stop 01/04/20 at 20:46; Status DC Ondansetron HCl (Zofran) 4 mg PRN Q8HRS PRN IV NAUSEA/VOMITING; Start 01/04/20 at 20:45; Stop 01/04/20 at 22:51; Status DC Morphine Sulfate (Morphine Sulfate) 4 mg PRN Q2HR PRN IV PAIN; Start 01/04/20 at 20:45; Stop 01/05/20 at 20:44 Acetaminophen (Tylenol) 650 mg PRN Q4HRS PRN PO FEVER > 100.3'F; Start 01/04/20 at 20:45; Stop 01/04/20 at 22:51; Status DC Sodium Chloride (Normal Saline Flush) 3 ml QSHIFT PRN IV AFTER MEDS AND BLOOD DRAWS; Start 01/04/20 at 22:45 Sodium Chloride 1,000 ml @ 100 mls/hr Q10H IV Last administered on 01/05/20at 09:45; Start 01/04/20 at 22:39 Ondansetron HCl (Zofran) 4 mg PRN Q4HRS PRN IV NAUSEA/VOMITING 1ST CHOICE; Start 01/04/20 at 22:45 Acetaminophen (Tylenol) 650 mg PRN Q4HRS PRN PO TEMP OVER 100.4F OR MILD PAIN; Start 01/04/20 at 22:45 Acetaminophen (Tylenol Supp) 650 mg PRN Q4HRS PRN GA TEMP OVER 100.4F OR MILD PAIN; Start 01/04/20 at 22:45 Al Hydroxide/Mg Hydroxide (Mylanta Plus Xs) 30 ml PRN DAILY PRN PO HEARTBURN / GAS; Start 01/04/20 at 22:45 Clonidine HCl (Catapres) 0.1 mg PRN Q6HRS PRN PO SBP>160 OR DBP>90; Start 01/04/20 at 22:45 Sodium Monofluorophosphate (Fleet Adult) 133 ml PRN DAILY PRN GA CONSTIPATION 1ST CHOICE; Start 01/04/20 at 22:45 Docusate Sodium (Colace) 100 mg PRN BID PRN PO HARD STOOLS; Start 01/04/20 at 22:45 Albuterol Sulfate (Ventolin Neb Soln) 2.5 mg PRN Q4HRS PRN NEB SHORTNESS OF BREATH; Start 01/04/20 at 22:45 Guaifenesin (Robitussin) 200 mg PRN Q4HRS PRN PO COUGH; Start 01/04/20 at 22:45 Lorazepam (Ativan) 0.5 mg PRN Q4HRS PRN PO ANXIETY / AGITATION; Start 01/04/20 at 22:45 Enoxaparin Sodium (Lovenox 40mg Syringe) 40 mg BID SQ Last administered on 01/05/20at 09:45; Start 01/04/20 at 22:45 Ceftriaxone Sodium (Rocephin) 1 gm Q24H IVP ; Start 01/05/20 at 20:00 Active Scripts Active Reported D3-50 (Cholecalciferol (Vitamin D3)) 50,000 Unit Capsule 125 Mcg PO DAILY Fish Oil 1,000 Mg Softgel (Roma-3/Dha/Epa/Fish Oil) 1 Each Capsule 1 Each PO DAILY Furosemide 40 Mg Tablet 40 Mg PO DAILY Nexium Capsule (Esomeprazole Magnesium) 40 Mg Capsule.dr 40 Mg PO DAILYAC Vitamin A 8,000 Unit Capsule 2,400 Mcg PO DAILY Myrbetriq (Mirabegron) 25 Mg Tab.er.24h 25 Mg PO DAILY Dalfampridine ER (Dalfampridine) 10 Mg Tab.er.12h 10 Mg PO Q12HR Baclofen 20 Mg Tablet 1 Tab PO TID Tamsulosin Hcl 0.4 Mg Cap.er.24h 2 Cap PO DAILY Allergies Allergies: Coded Allergies: No Known Drug Allergies (Unverified , 04/09/18) ROS General: YES: Fatigue Neurological: Yes Weakness Physical Exam Physical Exam Patient is alert and oriented. Reviewed. PE pending Covid test result. Vitals VITALS Vital Signs Date Time Temp Pulse Resp B/P (MAP) Pulse Ox O2 Delivery O2 Flow Rate FiO2 01/05/20 07:15 99.6 84 18 145/68 (93) 96 Room Air 99.6 Labs Labs Laboratory Tests Test 01/04/20 18:55 01/04/20 19:29 01/04/20 21:12 01/05/20 00:10 Influenza Type A Antigen Negative (NEGATIVE) Influenza Type B Antigen Negative (NEGATIVE) White Blood Count 10.6 x10^3/uL (4.0-11.0) Red Blood Count 5.53 x10^6/uL (4.30-5.70) Hemoglobin 15.3 g/dL (13.0-17.5) Hematocrit 44.9 % (39.0-53.0) Mean Corpuscular Volume 81 fL (79-100) Mean Corpuscular Hemoglobin 28 pg (25-35) Mean Corpuscular Hemoglobin Concent 34 g/dL (31-37) Red Cell Distribution Width 14.9 % (11.5-14.5) Platelet Count 189 x10^3/uL (140-400) Neutrophils (%) (Auto) 76 % (31-73) Lymphocytes (%) (Auto) 8 % (24-48) Monocytes (%) (Auto) 13 % (0-9) Eosinophils (%) (Auto) 2 % (0-3) Basophils (%) (Auto) 1 % (0-3) Neutrophils # (Auto) 8.1 x10^3/uL (1.8-7.7) Lymphocytes # (Auto) 0.9 x10^3/uL (1.0-4.8) Monocytes # (Auto) 1.4 x10^3/uL (0.0-1.1) Eosinophils # (Auto) 0.2 x10^3/uL (0.0-0.7) Basophils # (Auto) 0.1 x10^3/uL (0.0-0.2) Prothrombin Time 14.1 SEC (11.7-14.0) Prothromb Time International Ratio 1.1 (0.8-1.1) Activated Partial Thromboplast Time 32 SEC (24-38) Sodium Level 135 mmol/L (136-145) Potassium Level 3.9 mmol/L (3.5-5.1) Chloride Level 100 mmol/L (98-107) Carbon Dioxide Level 24 mmol/L (21-32) Anion Gap 11 (6-14) Blood Urea Nitrogen 21 mg/dL (8-26) Creatinine 1.3 mg/dL (0.7-1.3) Estimated GFR (Cockcroft-Gault) 74.0 BUN/Creatinine Ratio 16 (6-20) Glucose Level 143 mg/dL (70-99) Lactic Acid Level 1.3 mmol/L (0.4-2.0) Calcium Level 8.6 mg/dL (8.5-10.1) Magnesium Level 2.0 mg/dL (1.8-2.4) Ferritin 371 ng/mL (26-388) Total Bilirubin 1.0 mg/dL (0.2-1.0) Aspartate Amino Transf (AST/SGOT) 761 U/L (15-37) Alanine Aminotransferase (ALT/SGPT) 121 U/L (16-63) Alkaline Phosphatase 86 U/L (46-116) Creatine Kinase 44796 U/L (39-308) Creatine Kinase MB (Mass) 8.8 ng/mL (0.0-3.6) Creatine Kinase MB Relative Index 0.0 % (0-4) Troponin I Quantitative 0.614 ng/mL (0.000-0.055) 0.653 ng/mL (0.000-0.055) Total Protein 7.6 g/dL (6.4-8.2) Albumin 3.1 g/dL (3.4-5.0) Albumin/Globulin Ratio 0.7 (1.0-1.7) Procalcitonin 0.66 ng/mL (0.00-0.10) Thyroid Stimulating Hormone (TSH) 2.614 uIU/mL (0.358-3.74) Urine Collection Type Unknown Urine Color Elsy Urine Clarity Cloudy Urine pH 5.5 (<5.0-8.0) Urine Specific [place] 1.025 (1.000-1.030) Urine Protein 100 mg/dL (NEG-TRACE) Urine Glucose (UA) Negative mg/dL (NEG) Urine Ketones (Stick) 15 mg/dL (NEG) Urine Blood Large (NEG) Urine Nitrite Positive (NEG) Urine Bilirubin Small (NEG) Urine Urobilinogen Dipstick 1.0 mg/dL (0.2 mg/dL) Urine Leukocyte Esterase Moderate (NEG) Urine RBC 6-10 /HPF (0-2) Urine WBC Tntc /HPF (0-4) Urine Squamous Epithelial Cells Few /LPF Urine Amorphous Sediment Present /HPF Urine Bacteria Moderate /HPF (0-FEW) Urine Mucus Mod /LPF Test 01/05/20 05:00 White Blood Count 9.5 x10^3/uL (4.0-11.0) Red Blood Count 5.35 x10^6/uL (4.30-5.70) Hemoglobin 14.9 g/dL (13.0-17.5) Hematocrit 45.2 % (39.0-53.0) Mean Corpuscular Volume 84 fL (79-100) Mean Corpuscular Hemoglobin 28 pg (25-35) Mean Corpuscular Hemoglobin Concent 33 g/dL (31-37) Red Cell Distribution Width 15.7 % (11.5-14.5) Platelet Count 149 x10^3/uL (140-400) Neutrophils (%) (Auto) 65 % (31-73) Lymphocytes (%) (Auto) 14 % (24-48) Monocytes (%) (Auto) 18 % (0-9) Eosinophils (%) (Auto) 4 % (0-3) Basophils (%) (Auto) 1 % (0-3) Neutrophils # (Auto) 6.2 x10^3/uL (1.8-7.7) Lymphocytes # (Auto) 1.3 x10^3/uL (1.0-4.8) Monocytes # (Auto) 1.7 x10^3/uL (0.0-1.1) Eosinophils # (Auto) 0.3 x10^3/uL (0.0-0.7) Basophils # (Auto) 0.1 x10^3/uL (0.0-0.2) Sodium Level 137 mmol/L (136-145) Potassium Level 4.6 mmol/L (3.5-5.1) Chloride Level 104 mmol/L (98-107) Carbon Dioxide Level 23 mmol/L (21-32) Anion Gap 10 (6-14) Blood Urea Nitrogen 18 mg/dL (8-26) Creatinine 1.3 mg/dL (0.7-1.3) Estimated GFR (Cockcroft-Gault) 74.0 Glucose Level 100 mg/dL (70-99) Calcium Level 8.3 mg/dL (8.5-10.1) Magnesium Level 2.3 mg/dL (1.8-2.4) Troponin I Quantitative 0.758 ng/mL (0.000-0.055) LI-Hlg-L-Type Natriuretic Peptide 31 pg/mL (0-124) Laboratory Tests Test 01/04/20 18:55 01/04/20 19:29 01/04/20 21:12 01/05/20 00:10 Influenza Type A Antigen Negative (NEGATIVE) Influenza Type B Antigen Negative (NEGATIVE) White Blood Count 10.6 x10^3/uL (4.0-11.0) Red Blood Count 5.53 x10^6/uL (4.30-5.70) Hemoglobin 15.3 g/dL (13.0-17.5) Hematocrit 44.9 % (39.0-53.0) Mean Corpuscular Volume 81 fL (79-100) Mean Corpuscular Hemoglobin 28 pg (25-35) Mean Corpuscular Hemoglobin Concent 34 g/dL (31-37) Red Cell Distribution Width 14.9 % (11.5-14.5) Platelet Count 189 x10^3/uL (140-400) Neutrophils (%) (Auto) 76 % (31-73) Lymphocytes (%) (Auto) 8 % (24-48) Monocytes (%) (Auto) 13 % (0-9) Eosinophils (%) (Auto) 2 % (0-3) Basophils (%) (Auto) 1 % (0-3) Neutrophils # (Auto) 8.1 x10^3/uL (1.8-7.7) Lymphocytes # (Auto) 0.9 x10^3/uL (1.0-4.8) Monocytes # (Auto) 1.4 x10^3/uL (0.0-1.1) Eosinophils # (Auto) 0.2 x10^3/uL (0.0-0.7) Basophils # (Auto) 0.1 x10^3/uL (0.0-0.2) Prothrombin Time 14.1 SEC (11.7-14.0) Prothromb Time International Ratio 1.1 (0.8-1.1) Activated Partial Thromboplast Time 32 SEC (24-38) Sodium Level 135 mmol/L (136-145) Potassium Level 3.9 mmol/L (3.5-5.1) Chloride Level 100 mmol/L (98-107) Carbon Dioxide Level 24 mmol/L (21-32) Anion Gap 11 (6-14) Blood Urea Nitrogen 21 mg/dL (8-26) Creatinine 1.3 mg/dL (0.7-1.3) Estimated GFR (Cockcroft-Gault) 74.0 BUN/Creatinine Ratio 16 (6-20) Glucose Level 143 mg/dL (70-99) Lactic Acid Level 1.3 mmol/L (0.4-2.0) Calcium Level 8.6 mg/dL (8.5-10.1) Magnesium Level 2.0 mg/dL (1.8-2.4) Ferritin 371 ng/mL (26-388) Total Bilirubin 1.0 mg/dL (0.2-1.0) Aspartate Amino Transf (AST/SGOT) 761 U/L (15-37) Alanine Aminotransferase (ALT/SGPT) 121 U/L (16-63) Alkaline Phosphatase 86 U/L (46-116) Creatine Kinase 38954 U/L (39-308) Creatine Kinase MB (Mass) 8.8 ng/mL (0.0-3.6) Creatine Kinase MB Relative Index 0.0 % (0-4) Troponin I Quantitative 0.614 ng/mL (0.000-0.055) 0.653 ng/mL (0.000-0.055) Total Protein 7.6 g/dL (6.4-8.2) Albumin 3.1 g/dL (3.4-5.0) Albumin/Globulin Ratio 0.7 (1.0-1.7) Procalcitonin 0.66 ng/mL (0.00-0.10) Thyroid Stimulating Hormone (TSH) 2.614 uIU/mL (0.358-3.74) Urine Collection Type Unknown Urine Color Elsy Urine Clarity Cloudy Urine pH 5.5 (<5.0-8.0) Urine Specific [place] 1.025 (1.000-1.030) Urine Protein 100 mg/dL (NEG-TRACE) Urine Glucose (UA) Negative mg/dL (NEG) Urine Ketones (Stick) 15 mg/dL (NEG) Urine Blood Large (NEG) Urine Nitrite Positive (NEG) Urine Bilirubin Small (NEG) Urine Urobilinogen Dipstick 1.0 mg/dL (0.2 mg/dL) Urine Leukocyte Esterase Moderate (NEG) Urine RBC 6-10 /HPF (0-2) Urine WBC Tntc /HPF (0-4) Urine Squamous Epithelial Cells Few /LPF Urine Amorphous Sediment Present /HPF Urine Bacteria Moderate /HPF (0-FEW) Urine Mucus Mod /LPF Test 01/05/20 05:00 White Blood Count 9.5 x10^3/uL (4.0-11.0) Red Blood Count 5.35 x10^6/uL (4.30-5.70) Hemoglobin 14.9 g/dL (13.0-17.5) Hematocrit 45.2 % (39.0-53.0) Mean Corpuscular Volume 84 fL (79-100) Mean Corpuscular Hemoglobin 28 pg (25-35) Mean Corpuscular Hemoglobin Concent 33 g/dL (31-37) Red Cell Distribution Width 15.7 % (11.5-14.5) Platelet Count 149 x10^3/uL (140-400) Neutrophils (%) (Auto) 65 % (31-73) Lymphocytes (%) (Auto) 14 % (24-48) Monocytes (%) (Auto) 18 % (0-9) Eosinophils (%) (Auto) 4 % (0-3) Basophils (%) (Auto) 1 % (0-3) Neutrophils # (Auto) 6.2 x10^3/uL (1.8-7.7) Lymphocytes # (Auto) 1.3 x10^3/uL (1.0-4.8) Monocytes # (Auto) 1.7 x10^3/uL (0.0-1.1) Eosinophils # (Auto) 0.3 x10^3/uL (0.0-0.7) Basophils # (Auto) 0.1 x10^3/uL (0.0-0.2) Sodium Level 137 mmol/L (136-145) Potassium Level 4.6 mmol/L (3.5-5.1) Chloride Level 104 mmol/L (98-107) Carbon Dioxide Level 23 mmol/L (21-32) Anion Gap 10 (6-14) Blood Urea Nitrogen 18 mg/dL (8-26) Creatinine 1.3 mg/dL (0.7-1.3) Estimated GFR (Cockcroft-Gault) 74.0 Glucose Level 100 mg/dL (70-99) Calcium Level 8.3 mg/dL (8.5-10.1) Magnesium Level 2.3 mg/dL (1.8-2.4) Troponin I Quantitative 0.758 ng/mL (0.000-0.055) YD-Wcu-I-Type Natriuretic Peptide 31 pg/mL (0-124) Images Images Chest x-ray with no acute changes. Assessment/Plan Assessment/Plan 1. Generalized weakness and fatigue. History of MS and spinal stenosis. Fever of 100.5 in the emergency room. Patient has been started on antibiotics. He is feeling better overnight. COVID testing is pending. 2. Minimally elevated troponins at 0.614 and 0.758. No chest pain reported. No acute ischemic EKG is present. Tachycardic as above. Will continue on aspirin. Lovenox overnight. Echocardiogram when COVID negative. Will trend troponin. 3. Tachycardia. Monitoring. Consistent with the patient's presentation and fever. Thank you for allowing us to participate in the care of your patient. ESTELLA RUIZ MD Jan 05, 2020 10:55
[2020-01-05 11:30] VITALS: BP 163/78
[2020-01-05] MEDS: ACETAMINOPHEN 325 MG TABLET. PO PRN (14:59)
[2020-01-05 15:15] VITALS: BP 152/64
[2020-01-05 17:44] LABS: BASO # 0.1 x10^3/uL (0.0-0.2); BASO % 1 % (0-3); EOS # 0.3 x10^3/uL (0.0-0.7); EOS % 3 % (0-3); HEMATOCRIT 40.9 % (39.0-53.0); HEMOGLOBIN 13.8 g/dL (13.0-17.5); LYMPH # 1.2 x10^3/uL (1.0-4.8); LYMPH % 13 % (24-48); MEAN CORPUSCULAR HEMOGLOBIN 27 pg (25-35); MEAN CORPUSCULAR HGB CONC 34 g/dL (31-37); MEAN CORPUSCULAR VOLUME 81 fL (79-100); MONO # 1.1 x10^3/uL (0.0-1.1); MONO % 12 % (0-9); NEUT # 6.7 x10^3/uL (1.8-7.7); NEUT % 71 % (31-73); PLATELET COUNT 196 x10^3/uL (140-400); RED BLOOD COUNT 5.04 x10^6/uL (4.30-5.70); WHITE BLOOD COUNT 9.3 x10^3/uL (4.0-11.0)
[2020-01-05] MEDS: PIPERACILLIN/TAZOBACTAM 3.375 GM in IV NORMAL SALINE 50ML 50 ML IV SCH ×2 (18:00→22:48)
[2020-01-05] MEDS ORDERED: NORMAL SALINE IV ONE (19:30)
[2020-01-05] MEDS ORDERED: DAPTOMYCIN IV ONE (19:30)
[2020-01-05 19:57] VITALS: BP 129/87
[2020-01-05] MEDS ORDERED: cefTRIAXone IV Push 1 GM VIAL. IVP SCH (20:00)
[2020-01-05] MEDS ORDERED: IV NORMAL SALINE 500ML BAG 500 ML IV PRN (20:30)
[2020-01-05 21:11] LABS: D-DIMER 2.63 ug/mlFEU (0.00-0.50)
[2020-01-05] MEDS: IV NORMAL SALINE 1000ML BAG 2,250 ML IV SCH ×2 (21:21→22:21)
[2020-01-05] MEDS: LACTOBACILLUS RHAMNOSUS GG 1 CAPSULE. PO SCH (22:47)
[2020-01-05] MEDS: LORazepam 0.5 MG TABLET PO PRN (22:47)
[2020-01-05 23:02] VITALS: BP 149/70
[2020-01-06] VITALS (7 sets, daily range): BP systolic 132–175; BP diastolic 67–104
[2020-01-06 01:05] LABS: CALCIUM 8.5 mg/dL (8.5-10.1); CREATININE 1.1 mg/dL (0.7-1.3); GFR 89.7; POTASSIUM 4.1 mmol/L (3.5-5.1)
[2020-01-06 01:10] LABS: ALBUMIN 2.4 g/dL (3.4-5.0); ALBUMIN/GLOBULIN RATIO 0.6 (1.0-1.7); TOTAL BILIRUBIN 0.8 mg/dL (0.2-1.0); TOTAL PROTEIN 6.5 g/dL (6.4-8.2)
--- NOTE | 2020-01-06 02:11 | EKG ---
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
[2020-01-06] MEDS: IV NORMAL SALINE 1000ML BAG 2,250 ML IV SCH (04:15)
--- NOTE | 2020-01-06 04:34 | NUR ---
2000: 1000 urine emptied from zaragoza - dark oliver, cloudy with sediment in it - strong odor. 2114: RN noted orders for CVP monitoring and [address] Reinoso paged to clarify orders and let know we do not do CVP monitoring on floor. Orders given to D/C CVP monitoring and increase IVF rate by 50 q hr if UO < 200 ml/hr. RN busy and unable to get back to room from 08 - UO for that time frame 275. From [id number], UO 75. HR tachy in 110's, RR mid-upper 20's, temp down to 100.8, pt diaphoretic - denied pain. IV in RH noted to be leaking. New IV started with one attempted per this RN in LFA and IVF hooked up to that. RN opened fluids wide at 0025. RN called assistant warehouse manager and asked opinion concerning pt status. Discussed and length and concreting supervisor suggested calling sepsis RN. Sepsis RN paged at [phone]. When there was no return call - RN called ICU to speak with IZABELA Marie - sepsis RN for noc. While on phone with Cynthia this RN noted what looked to be like EKG changes and requested that Cynthia review. Cynthia stated no new changes. Dr Reinoso paged at [phone] and made aware that it looked as if might be EKG changes - did want EKG? Order given to not do EKG unless pt has CP. Order also given to repeat troponin. IZABELA Carballo informed this RN that if RN suspected there might be EKG changes it was protocol to put in an EKG - so EKG order placed in computer. EKG results negative for ST elevation. 348 - UO increased to 200 for 90min. Urine screw cutter and somewhat clearer than previously. Pt afebrile. Will continue to monitor pt status closely.
[2020-01-06] MEDS: IV NORMAL SALINE 1000ML BAG 1,000 ML IV SCH ×6 (04:39→19:58)
[2020-01-06 04:56] LABS: BASO % 0 % (0-3); EOS # 0.4 x10^3/uL (0.0-0.7); EOS % 4 % (0-3); HEMATOCRIT 38.2 % (39.0-53.0); LYMPH # 1.2 x10^3/uL (1.0-4.8); LYMPH % 12 % (24-48); MEAN CORPUSCULAR HEMOGLOBIN 28 pg (25-35); MEAN CORPUSCULAR HGB CONC 34 g/dL (31-37); MEAN CORPUSCULAR VOLUME 82 fL (79-100); MONO # 1.5 x10^3/uL (0.0-1.1); MONO % 16 % (0-9); NEUT # 6.5 x10^3/uL (1.8-7.7); NEUT % 67 % (31-73); PLATELET COUNT 179 x10^3/uL (140-400); RED BLOOD COUNT 4.69 x10^6/uL (4.30-5.70); RED CELL DISTRIBUTION WIDTH 15.1 % (11.5-14.5); WHITE BLOOD COUNT 9.7 x10^3/uL (4.0-11.0)
[2020-01-06 05:28] LABS: GFR 100.1; POTASSIUM 3.9 mmol/L (3.5-5.1)
[2020-01-06 05:40] LABS: CHOLESTEROL/HDL RATIO 6.5
[2020-01-06] MEDS: PIPERACILLIN/TAZOBACTAM 3.375 GM in IV NORMAL SALINE 50ML 50 ML IV SCH ×4 (06:04→20:00)
[2020-01-06] MEDS: ENOXAPARIN 40 MG/0.4 ML SYRINGE. SQ SCH ×2 (08:56→19:59)
[2020-01-06] MEDS: LACTOBACILLUS RHAMNOSUS GG 1 CAPSULE. PO SCH (08:56)
[2020-01-06] MEDS: ACETAMINOPHEN 325 MG TABLET. PO PRN (08:56)
--- NOTE | 2020-01-06 10:46 | PDOC ---
Infectious Disease Note Vital Sign Vital Signs Vital Signs Date Time Temp Pulse Resp B/P (MAP) Pulse Ox O2 Delivery O2 Flow Rate FiO2 01/06/20 07:15 98.9 98 22 175/104 (127) 98 Room Air 98.9 Labs Lab Laboratory Tests Test 01/05/20 17:30 01/05/20 20:25 01/06/20 04:20 White Blood Count 9.3 x10^3/uL (4.0-11.0) 9.7 x10^3/uL (4.0-11.0) Red Blood Count 5.04 x10^6/uL (4.30-5.70) 4.69 x10^6/uL (4.30-5.70) Hemoglobin 13.8 g/dL (13.0-17.5) 13.0 g/dL (13.0-17.5) Hematocrit 40.9 % (39.0-53.0) 38.2 % (39.0-53.0) Mean Corpuscular Volume 81 fL (79-100) 82 fL (79-100) Mean Corpuscular Hemoglobin 27 pg (25-35) 28 pg (25-35) Mean Corpuscular Hemoglobin Concent 34 g/dL (31-37) 34 g/dL (31-37) Red Cell Distribution Width 15.0 % (11.5-14.5) 15.1 % (11.5-14.5) Platelet Count 196 x10^3/uL (140-400) 179 x10^3/uL (140-400) Neutrophils (%) (Auto) 71 % (31-73) 67 % (31-73) Lymphocytes (%) (Auto) 13 % (24-48) 12 % (24-48) Monocytes (%) (Auto) 12 % (0-9) 16 % (0-9) Eosinophils (%) (Auto) 3 % (0-3) 4 % (0-3) Basophils (%) (Auto) 1 % (0-3) 0 % (0-3) Neutrophils # (Auto) 6.7 x10^3/uL (1.8-7.7) 6.5 x10^3/uL (1.8-7.7) Lymphocytes # (Auto) 1.2 x10^3/uL (1.0-4.8) 1.2 x10^3/uL (1.0-4.8) Monocytes # (Auto) 1.1 x10^3/uL (0.0-1.1) 1.5 x10^3/uL (0.0-1.1) Eosinophils # (Auto) 0.3 x10^3/uL (0.0-0.7) 0.4 x10^3/uL (0.0-0.7) Basophils # (Auto) 0.1 x10^3/uL (0.0-0.2) 0.0 x10^3/uL (0.0-0.2) Lactic Acid Level 1.2 mmol/L (0.4-2.0) 1.3 mmol/L (0.4-2.0) Fibrinogen 639 mg/dL (200-440) D-Dimer (Sanjuana) 2.63 ug/mlFEU (0.00-0.50) Sodium Level 136 mmol/L (136-145) 139 mmol/L (136-145) Potassium Level 4.1 mmol/L (3.5-5.1) 3.9 mmol/L (3.5-5.1) Chloride Level 102 mmol/L (98-107) 105 mmol/L (98-107) Carbon Dioxide Level 24 mmol/L (21-32) 24 mmol/L (21-32) Anion Gap 10 (6-14) 10 (6-14) Blood Urea Nitrogen 12 mg/dL (8-26) 12 mg/dL (8-26) Creatinine 1.1 mg/dL (0.7-1.3) 1.0 mg/dL (0.7-1.3) Estimated GFR (Cockcroft-Gault) 89.7 100.1 BUN/Creatinine Ratio 11 (6-20) Glucose Level 120 mg/dL (70-99) 118 mg/dL (70-99) Calcium Level 8.5 mg/dL (8.5-10.1) 8.0 mg/dL (8.5-10.1) Total Bilirubin 0.8 mg/dL (0.2-1.0) Aspartate Amino Transf (AST/SGOT) 483 U/L (15-37) Alanine Aminotransferase (ALT/SGPT) 108 U/L (16-63) Alkaline Phosphatase 65 U/L (46-116) Total Protein 6.5 g/dL (6.4-8.2) Albumin 2.4 g/dL (3.4-5.0) Albumin/Globulin Ratio 0.6 (1.0-1.7) Troponin I Quantitative 0.816 ng/mL (0.000-0.055) Triglycerides Level 171 mg/dL (0-150) Cholesterol Level 194 mg/dL (0-200) LDL Cholesterol, Calculated 130 mg/dL (0-100) VLDL Cholesterol, Calculated 34 mg/dL (0-40) Non-HDL Cholesterol Calculated 164 mg/dL (0-129) HDL Cholesterol 30 mg/dL (40-60) Cholesterol/HDL Ratio 6.5 Micro Microbiology 01/05/20 Blood Culture - Preliminary, Resulted NO GROWTH AFTER 1 DAY 01/04/20 Urine Culture - Final, Complete Objective Assessment pt seen, consult dictated Plan Plan of Care / YUDY CARBONE MD Jan 06, 2020 10:46
--- NOTE | 2020-01-06 10:57 | PDOC2 ---
NEUROLOGY CONSULT Date of Service DOS: DATE: 01/06/20 TIME: 10:57 Reason for Consult Reason for Consult: Multiple sclerosis Referring Physician Referring Physician: Dr. Reinoso PCP: Dr. Banda Source Source: Chart review, Patient History of Present Illness History of Present Illness The patient is a 39-year-old right-handed male diagnosed with multiple sclerosis in 2011, he follows with Dr. Pedroza at , and is on a study medication of monthly injections for his multiple sclerosis. He's admitted with generalized weakness and found to have urinary tract infection. He is under investigation for COVID. He felt weak all over. He also has chronic back pain and sees Dr. Corcoran at for epidural injections. He has not had any recent multiple sclerosis exacerbations requiring steroids. He did see Dr. Mcdaniel in 2018 during his hospitalization with similar presentation, MRI of the brain cervical spine, as reviewed below, showed multiple sclerosis but no acute enhancing lesions. He is feeling better today. Past Medical History Cardiovascular: Other ( edema) CENTRAL NERVOUS SYSTEM: Other (Multiple sclerosis) Musculoskeletal: low back pain ( lumbar spinal stenosis) Renal/: UTI, Urinary Incontinence ( self catheterizes) Dermatology: Other ( pressure ulcers) Past Surgical History Past Surgical History: No pertinent history Family History Family History: CAD Social History Social History Single, disabled, no alcohol or tobacco Current Medications Current Medications Current Medications Sodium Chloride 2,400 ml @ 2,400 mls/hr Q1H IV Last administered on 01/04/20at 21:04; Start 01/04/20 at 18:35; Stop 01/05/20 at 01:45; Status DC Acetaminophen (Tylenol) 1,000 mg 1X ONCE PO Last administered on 01/04/20at 18:49; Start 01/04/20 at 18:45; Stop 01/04/20 at 18:46; Status DC Azithromycin 250 ml @ 250 mls/hr 1X ONCE IV Last administered on 01/04/20 21:05; Start 01/04/20 at 20:30; Stop 01/04/20 at 21:29; Status DC Ceftriaxone Sodium (Rocephin) 1 gm 1X ONCE IVP Last administered on 01/04/20 21:05; Start 01/04/20 at 20:30; Stop 01/04/20 at 20:31; Status DC Aspirin (Aurora Aspirin) 325 mg 1X ONCE PO Last administered on 01/04/20at 21:04; Start 01/04/20 at 20:30; Stop 01/04/20 at 20:31; Status DC Enoxaparin Sodium (Lovenox Per Pharmacy Treatment Dosing) 1 each 1X STAT [facility] ; Start 01/04/20 at 20:28; Stop 01/04/20 at 20:31; Status DC Enoxaparin Sodium (Lovenox 150mg Syringe) 150 mg 1X ONCE SQ Last administered on 01/04/20at 21:04; Start 01/04/20 at 20:45; Stop 01/04/20 at 20:46; Status DC Ondansetron HCl (Zofran) 4 mg PRN Q8HRS PRN IV NAUSEA/VOMITING; Start 01/04/20 at 20:45; Stop 01/04/20 at 22:51; Status DC Morphine Sulfate (Morphine Sulfate) 4 mg PRN Q2HR PRN IV PAIN; Start 01/04/20 at 20:45; Stop 01/05/20 at 20:44; Status DC Acetaminophen (Tylenol) 650 mg PRN Q4HRS PRN PO FEVER > 100.3'F; Start 01/04/20 at 20:45; Stop 01/04/20 at 22:51; Status DC Sodium Chloride (Normal Saline Flush) 3 ml QSHIFT PRN IV AFTER MEDS AND BLOOD DRAWS; Start 01/04/20 at 22:45 Sodium Chloride 1,000 ml @ 100 mls/hr Q10H IV Last administered on 01/05/20at 18:12; Start 01/04/20 at 22:39 Ondansetron HCl (Zofran) 4 mg PRN Q4HRS PRN IV NAUSEA/VOMITING 1ST CHOICE; Start 01/04/20 at 22:45 Acetaminophen (Tylenol) 650 mg PRN Q4HRS PRN PO TEMP OVER 100.4F OR MILD PAIN Last administered on 01/06/20at 08:56; Start 01/04/20 at 22:45 Acetaminophen (Tylenol Supp) 650 mg PRN Q4HRS PRN TX TEMP OVER 100.4F OR MILD PAIN; Start 01/04/20 at 22:45 Al Hydroxide/Mg Hydroxide (Mylanta Plus Xs) 30 ml PRN DAILY PRN PO HEARTBURN / GAS; Start 01/04/20 at 22:45 Clonidine HCl (Catapres) 0.1 mg PRN Q6HRS PRN PO SBP>160 OR DBP>90; Start 01/04/20 at 22:45 Sodium Monofluorophosphate (Fleet Adult) 133 ml PRN DAILY PRN TX CONSTIPATION 1ST CHOICE; Start 01/04/20 at 22:45 Docusate Sodium (Colace) 100 mg PRN BID PRN PO HARD STOOLS; Start 01/04/20 at 22:45 Albuterol Sulfate (Ventolin Neb Soln) 2.5 mg PRN Q4HRS PRN NEB SHORTNESS OF BREATH; Start 01/04/20 at 22:45 Guaifenesin (Robitussin) 200 mg PRN Q4HRS PRN PO COUGH; Start 01/04/20 at 22:45 Lorazepam (Ativan) 0.5 mg PRN Q4HRS PRN PO ANXIETY / AGITATION Last administered on 01/05/20at 22:47; Start 01/04/20 at 22:45 Enoxaparin Sodium (Lovenox 40mg Syringe) 40 mg BID SQ Last administered on 01/06/20at 08:56; Start 01/04/20 at 22:45 Ceftriaxone Sodium (Rocephin) 1 gm Q24H IVP ; Start 01/05/20 at 20:00; Stop 01/05/20 at 13:40; Status DC Piperacillin Sod/ Tazobactam Sod 3.375 gm/Sodium Chloride 50 ml @ 100 mls/hr Q6HRS IV Last administered on 01/06/20at 06:04; Start 01/05/20 at 18:00 Lactobacillus Rhamnosus (Culturelle) 1 cap BID PO Last administered on 01/06/20at 08:56; Start 01/05/20 at 21:00 Daptomycin 650 mg/ Sodium Chloride 50 ml @ 100 mls/hr 1X ONCE IV Last administered on 01/05/20at 19:54; Start 01/05/20 at 19:30; Stop 01/05/20 at 19:59; Status DC Sodium Chloride 2,250 ml @ 2,250 mls/hr Q1H IV Last administered on 01/06/20at 04:15; Start 01/05/20 at 20:21 Sodium Chloride 500 ml @ 1,000 mls/hr PRN Q30MIN PRN IV SEE COMMENTS; Start 01/05/20 at 20:30 Sodium Chloride 1,000 ml @ 200 mls/hr Q5H IV Last administered on 01/06/20at 08:57; Start 01/05/20 at 22:00 Active Scripts Active Reported D3-50 (Cholecalciferol (Vitamin D3)) 50,000 Unit Capsule 125 Mcg PO DAILY Fish Oil 1,000 Mg Softgel ([place]-3/Dha/Epa/Fish Oil) 1 Each Capsule 1 Each PO DAILY Furosemide 40 Mg Tablet 40 Mg PO DAILY Nexium Capsule (Esomeprazole Magnesium) 40 Mg Capsule.dr 40 Mg PO DAILYAC Vitamin A 8,000 Unit Capsule 2,400 Mcg PO DAILY Myrbetriq (Mirabegron) 25 Mg Tab.er.24h 25 Mg PO DAILY Dalfampridine ER (Dalfampridine) 10 Mg Tab.er.12h 10 Mg PO Q12HR Baclofen 20 Mg Tablet 1 Tab PO TID Tamsulosin Hcl 0.4 Mg Cap.er.24h 2 Cap PO DAILY Allergies Allergies: Coded Allergies: No Known Drug Allergies (Unverified , 04/09/18) ROS Review of System Negative for fever, chills, weight loss, shortness of breath, chest pain, indigestion, hematochezia, melena, and dysuria. Full 14-point review of systems is negative. Physical Exam Physical Examination General: Well-developed, well-nourished black male in no acute distress HEENT: Normocephalic andatraumatic. Temporal arteriespulsatile and nontender. Neck: Supple without bruit, no meningismus Musculoskeletal: Stability:see neurologic. Gait exam:see neurologic. Tone:see neurologic.Strength:see neurologic. Neurological: Mental Status:intact, orientation, memory, attention span/concentration, language, fund of knowledge normal. Cranial Nerves:Pupils equal and reactive to light, extraocular movements areintact, visual garcia are full to confront ation. Facial sensation is normal. There is no facial asymmetry. Vestibulo- ocular reflex is intact. Palate elevates and tongue protrudes in midline. All other cranial related problems are negative except as mentioned before.Reflexes:2+ and symmetric with flexor plantar responses. Motor:5-/5 strength in arms, 4/5 legs, with normal tone and bulk. Coordination: Slight bilateral dysmetria. Rapid alternating movements and fine finger movements are intact. Gait: not tested, he normally uses a walker. Sensory:Normal pinprick, vibration, light touch, proprioception. Vitals VITALS Vital Signs Date Time Temp Pulse Resp B/P (MAP) Pulse Ox O2 Delivery O2 Flow Rate FiO2 01/06/20 07:15 98.9 98 22 175/104 (127) 98 Room Air 98.9 Labs Labs Laboratory Tests Test 01/04/20 18:55 01/04/20 19:29 01/04/20 21:12 01/05/20 00:10 Influenza Type A Antigen Negative (NEGATIVE) Influenza Type B Antigen Negative (NEGATIVE) White Blood Count 10.6 x10^3/uL (4.0-11.0) Red Blood Count 5.53 x10^6/uL (4.30-5.70) Hemoglobin 15.3 g/dL (13.0-17.5) Hematocrit 44.9 % (39.0-53.0) Mean Corpuscular Volume 81 fL (79-100) Mean Corpuscular Hemoglobin 28 pg (25-35) Mean Corpuscular Hemoglobin Concent 34 g/dL (31-37) Red Cell Distribution Width 14.9 % (11.5-14.5) Platelet Count 189 x10^3/uL (140-400) Neutrophils (%) (Auto) 76 % (31-73) Lymphocytes (%) (Auto) 8 % (24-48) Monocytes (%) (Auto) 13 % (0-9) Eosinophils (%) (Auto) 2 % (0-3) Basophils (%) (Auto) 1 % (0-3) Neutrophils # (Auto) 8.1 x10^3/uL (1.8-7.7) Lymphocytes # (Auto) 0.9 x10^3/uL (1.0-4.8) Monocytes # (Auto) 1.4 x10^3/uL (0.0-1.1) Eosinophils # (Auto) 0.2 x10^3/uL (0.0-0.7) Basophils # (Auto) 0.1 x10^3/uL (0.0-0.2) Prothrombin Time 14.1 SEC (11.7-14.0) Prothromb Time International Ratio 1.1 (0.8-1.1) Activated Partial Thromboplast Time 32 SEC (24-38) Sodium Level 135 mmol/L (136-145) Potassium Level 3.9 mmol/L (3.5-5.1) Chloride Level 100 mmol/L (98-107) Carbon Dioxide Level 24 mmol/L (21-32) Anion Gap 11 (6-14) Blood Urea Nitrogen 21 mg/dL (8-26) Creatinine 1.3 mg/dL (0.7-1.3) Estimated GFR (Cockcroft-Gault) 74.0 BUN/Creatinine Ratio 16 (6-20) Glucose Level 143 mg/dL (70-99) Lactic Acid Level 1.3 mmol/L (0.4-2.0) Calcium Level 8.6 mg/dL (8.5-10.1) Magnesium Level 2.0 mg/dL (1.8-2.4) Ferritin 371 ng/mL (26-388) Total Bilirubin 1.0 mg/dL (0.2-1.0) Aspartate Amino Transf (AST/SGOT) 761 U/L (15-37) Alanine Aminotransferase (ALT/SGPT) 121 U/L (16-63) Alkaline Phosphatase 86 U/L (46-116) Creatine Kinase 34634 U/L (39-308) Creatine Kinase MB (Mass) 8.8 ng/mL (0.0-3.6) Creatine Kinase MB Relative Index 0.0 % (0-4) Troponin I Quantitative 0.614 ng/mL (0.000-0.055) 0.653 ng/mL (0.000-0.055) Total Protein 7.6 g/dL (6.4-8.2) Albumin 3.1 g/dL (3.4-5.0) Albumin/Globulin Ratio 0.7 (1.0-1.7) Procalcitonin 0.66 ng/mL (0.00-0.10) Thyroid Stimulating Hormone (TSH) 2.614 uIU/mL (0.358-3.74) Urine Collection Type Unknown Urine Color Elsy Urine Clarity Cloudy Urine pH 5.5 (<5.0-8.0) Urine Specific [place] 1.025 (1.000-1.030) Urine Protein 100 mg/dL (NEG-TRACE) Urine Glucose (UA) Negative mg/dL (NEG) Urine Ketones (Stick) 15 mg/dL (NEG) Urine Blood Large (NEG) Urine Nitrite Positive (NEG) Urine Bilirubin Small (NEG) Urine Urobilinogen Dipstick 1.0 mg/dL (0.2 mg/dL) Urine Leukocyte Esterase Moderate (NEG) Urine RBC 6-10 /HPF (0-2) Urine WBC Tntc /HPF (0-4) Urine Squamous Epithelial Cells Few /LPF Urine Amorphous Sediment Present /HPF Urine Bacteria Moderate /HPF (0-FEW) Urine Mucus Mod /LPF Test 01/05/20 05:00 01/05/20 17:30 01/05/20 20:25 01/06/20 04:20 White Blood Count 9.5 x10^3/uL (4.0-11.0) 9.3 x10^3/uL (4.0-11.0) 9.7 x10^3/uL (4.0-11.0) Red Blood Count 5.35 x10^6/uL (4.30-5.70) 5.04 x10^6/uL (4.30-5.70) 4.69 x10^6/uL (4.30-5.70) Hemoglobin 14.9 g/dL (13.0-17.5) 13.8 g/dL (13.0-17.5) 13.0 g/dL (13.0-17.5) Hematocrit 45.2 % (39.0-53.0) 40.9 % (39.0-53.0) 38.2 % (39.0-53.0) Mean Corpuscular Volume 84 fL (79-100) 81 fL (79-100) 82 fL (79-100) Mean Corpuscular Hemoglobin 28 pg (25-35) 27 pg (25-35) 28 pg (25-35) Mean Corpuscular Hemoglobin Concent 33 g/dL (31-37) 34 g/dL (31-37) 34 g/dL (31-37) Red Cell Distribution Width 15.7 % (11.5-14.5) 15.0 % (11.5-14.5) 15.1 % (11.5-14.5) Platelet Count 149 x10^3/uL (140-400) 196 x10^3/uL (140-400) 179 x10^3/uL (140-400) Neutrophils (%) (Auto) 65 % (31-73) 71 % (31-73) 67 % (31-73) Lymphocytes (%) (Auto) 14 % (24-48) 13 % (24-48) 12 % (24-48) Monocytes (%) (Auto) 18 % (0-9) 12 % (0-9) 16 % (0-9) Eosinophils (%) (Auto) 4 % (0-3) 3 % (0-3) 4 % (0-3) Basophils (%) (Auto) 1 % (0-3) 1 % (0-3) 0 % (0-3) Neutrophils # (Auto) 6.2 x10^3/uL (1.8-7.7) 6.7 x10^3/uL (1.8-7.7) 6.5 x10^3/uL (1.8-7.7) Lymphocytes # (Auto) 1.3 x10^3/uL (1.0-4.8) 1.2 x10^3/uL (1.0-4.8) 1.2 x10^3/uL (1.0-4.8) Monocytes # (Auto) 1.7 x10^3/uL (0.0-1.1) 1.1 x10^3/uL (0.0-1.1) 1.5 x10^3/uL (0.0-1.1) Eosinophils # (Auto) 0.3 x10^3/uL (0.0-0.7) 0.3 x10^3/uL (0.0-0.7) 0.4 x10^3/uL (0.0-0.7) Basophils # (Auto) 0.1 x10^3/uL (0.0-0.2) 0.1 x10^3/uL (0.0-0.2) 0.0 x10^3/uL (0.0-0.2) Sodium Level 137 mmol/L (136-145) 136 mmol/L (136-145) 139 mmol/L (136-145) Potassium Level 4.6 mmol/L (3.5-5.1) 4.1 mmol/L (3.5-5.1) 3.9 mmol/L (3.5-5.1) Chloride Level 104 mmol/L (98-107) 102 mmol/L (98-107) 105 mmol/L (98-107) Carbon Dioxide Level 23 mmol/L (21-32) 24 mmol/L (21-32) 24 mmol/L (21-32) Anion Gap 10 (6-14) 10 (6-14) 10 (6-14) Blood Urea Nitrogen 18 mg/dL (8-26) 12 mg/dL (8-26) 12 mg/dL (8-26) Creatinine 1.3 mg/dL (0.7-1.3) 1.1 mg/dL (0.7-1.3) 1.0 mg/dL (0.7-1.3) Estimated GFR (Cockcroft-Gault) 74.0 89.7 100.1 Glucose Level 100 mg/dL (70-99) 120 mg/dL (70-99) 118 mg/dL (70-99) Calcium Level 8.3 mg/dL (8.5-10.1) 8.5 mg/dL (8.5-10.1) 8.0 mg/dL (8.5-10.1) Magnesium Level 2.3 mg/dL (1.8-2.4) Troponin I Quantitative 0.758 ng/mL (0.000-0.055) 0.816 ng/mL (0.000-0.055) DC-Myk-Y-Type Natriuretic Peptide 31 pg/mL (0-124) Procalcitonin 0.58 ng/mL (0.00-0.10) Lactic Acid Level 1.2 mmol/L (0.4-2.0) 1.3 mmol/L (0.4-2.0) Fibrinogen 639 mg/dL (200-440) D-Dimer (Sanjuana) 2.63 ug/mlFEU (0.00-0.50) BUN/Creatinine Ratio 11 (6-20) Total Bilirubin 0.8 mg/dL (0.2-1.0) Aspartate Amino Transf (AST/SGOT) 483 U/L (15-37) Alanine Aminotransferase (ALT/SGPT) 108 U/L (16-63) Alkaline Phosphatase 65 U/L (46-116) Total Protein 6.5 g/dL (6.4-8.2) Albumin 2.4 g/dL (3.4-5.0) Albumin/Globulin Ratio 0.6 (1.0-1.7) Triglycerides Level 171 mg/dL (0-150) Cholesterol Level 194 mg/dL (0-200) LDL Cholesterol, Calculated 130 mg/dL (0-100) VLDL Cholesterol, Calculated 34 mg/dL (0-40) Non-HDL Cholesterol Calculated 164 mg/dL (0-129) HDL Cholesterol 30 mg/dL (40-60) Cholesterol/HDL Ratio 6.5 Laboratory Tests Test 01/05/20 17:30 01/05/20 20:25 01/06/20 04:20 White Blood Count 9.3 x10^3/uL (4.0-11.0) 9.7 x10^3/uL (4.0-11.0) Red Blood Count 5.04 x10^6/uL (4.30-5.70) 4.69 x10^6/uL (4.30-5.70) Hemoglobin 13.8 g/dL (13.0-17.5) 13.0 g/dL (13.0-17.5) Hematocrit 40.9 % (39.0-53.0) 38.2 % (39.0-53.0) Mean Corpuscular Volume 81 fL (79-100) 82 fL (79-100) Mean Corpuscular Hemoglobin 27 pg (25-35) 28 pg (25-35) Mean Corpuscular Hemoglobin Concent 34 g/dL (31-37) 34 g/dL (31-37) Red Cell Distribution Width 15.0 % (11.5-14.5) 15.1 % (11.5-14.5) Platelet Count 196 x10^3/uL (140-400) 179 x10^3/uL (140-400) Neutrophils (%) (Auto) 71 % (31-73) 67 % (31-73) Lymphocytes (%) (Auto) 13 % (24-48) 12 % (24-48) Monocytes (%) (Auto) 12 % (0-9) 16 % (0-9) Eosinophils (%) (Auto) 3 % (0-3) 4 % (0-3) Basophils (%) (Auto) 1 % (0-3) 0 % (0-3) Neutrophils # (Auto) 6.7 x10^3/uL (1.8-7.7) 6.5 x10^3/uL (1.8-7.7) Lymphocytes # (Auto) 1.2 x10^3/uL (1.0-4.8) 1.2 x10^3/uL (1.0-4.8) Monocytes # (Auto) 1.1 x10^3/uL (0.0-1.1) 1.5 x10^3/uL (0.0-1.1) Eosinophils # (Auto) 0.3 x10^3/uL (0.0-0.7) 0.4 x10^3/uL (0.0-0.7) Basophils # (Auto) 0.1 x10^3/uL (0.0-0.2) 0.0 x10^3/uL (0.0-0.2) Lactic Acid Level 1.2 mmol/L (0.4-2.0) 1.3 mmol/L (0.4-2.0) Fibrinogen 639 mg/dL (200-440) D-Dimer (Sanjuana) 2.63 ug/mlFEU (0.00-0.50) Sodium Level 136 mmol/L (136-145) 139 mmol/L (136-145) Potassium Level 4.1 mmol/L (3.5-5.1) 3.9 mmol/L (3.5-5.1) Chloride Level 102 mmol/L (98-107) 105 mmol/L (98-107) Carbon Dioxide Level 24 mmol/L (21-32) 24 mmol/L (21-32) Anion Gap 10 (6-14) 10 (6-14) Blood Urea Nitrogen 12 mg/dL (8-26) 12 mg/dL (8-26) Creatinine 1.1 mg/dL (0.7-1.3) 1.0 mg/dL (0.7-1.3) Estimated GFR (Cockcroft-Gault) 89.7 100.1 BUN/Creatinine Ratio 11 (6-20) Glucose Level 120 mg/dL (70-99) 118 mg/dL (70-99) Calcium Level 8.5 mg/dL (8.5-10.1) 8.0 mg/dL (8.5-10.1) Total Bilirubin 0.8 mg/dL (0.2-1.0) Aspartate Amino Transf (AST/SGOT) 483 U/L (15-37) Alanine Aminotransferase (ALT/SGPT) 108 U/L (16-63) Alkaline Phosphatase 65 U/L (46-116) Total Protein 6.5 g/dL (6.4-8.2) Albumin 2.4 g/dL (3.4-5.0) Albumin/Globulin Ratio 0.6 (1.0-1.7) Troponin I Quantitative 0.816 ng/mL (0.000-0.055) Triglycerides Level 171 mg/dL (0-150) Cholesterol Level 194 mg/dL (0-200) LDL Cholesterol, Calculated 130 mg/dL (0-100) VLDL Cholesterol, Calculated 34 mg/dL (0-40) Non-HDL Cholesterol Calculated 164 mg/dL (0-129) HDL Cholesterol 30 mg/dL (40-60) Cholesterol/HDL Ratio 6.5 Images Images MRI Brain with and without contrast, 04/10/2018 History: Extremity weakness, unsteady gait, multiple sclerosis Technique: Multiplanar, multi sequential pre and postcontrast MR imaging was performed of the brain. Comparison: None Findings: There is multifocal moderate T2 and FLAIR hyperintense abnormality of the supratentorial parenchyma bilaterally, multiple foci associated with variable T1 hypointense signal. Multiple foci have a perpendicular orientation relative to the lateral ventricles. There is no abnormal intracranial enhancement. There is no midline shift or intra-axial mass effect. Ventricular size is within normal limits. Cerebral volume is within normal limits. There is no evidence of recent infarct. There is preservation of the major arterial flow voids at the skull base. There is prominent disconjugate gaze. There is patchy moderate ethmoid air cell mucosal thickening greater anteriorly. There is a small air-fluid level of the left maxillary sinus. There is other mild maxillary sinus and sphenoid sinus mucosal thickening. Frontal sinus is not significantly pneumatized. Mastoid air cells are aerated. Cerebellar tonsils are normal in location. There is preservation of marrow signal of the clivus. There is no abnormality of pineal gland or pituitary gland. Impression: 1. There is evidence of multiple sclerosis, no abnormal intracranial enhancement. 2. There is paranasal sinus mucosal thickening, also left maxillary sinus air-fluid level which may be seen with acute sinusitis. 3. There is prominent disconjugate gaze. MRI Cervical Spine with and without contrast, 04/10/2018 History: Extremity weakness, unsteady gait, history of multiple sclerosis Technique: Multiplanar, multi sequential pre and postcontrast MR imaging was performed of the cervical spine. Comparison: None Findings: There is multifocal T2 and STIR hyperintense signal abnormality of the cervical cord most notable at C2, C2-3, C3-4, C4-5, C5-6, also probably of the superior thoracic cord. There is no enhancement of the cord. There is no enhancement in the intervertebral disc spaces. Cervical vertebral body stature and AP alignment are within normal limits. There is mild degenerative disc disease at C4-C5. There are posterior annular tear C3-4 and C4-C5. There is no significant marrow edema. C2-C3: Spinal canal is adequate. There is mild narrowing of the left neural foramen mostly on developmental basis. Right neural foramen is adequate. C3-C4: There is facet degenerative change greater on the left. There is buckling of the ligamentum flavum. Central canal is narrowed to about 8 mm. There is mild narrowing of the left neural foramen, right neural foramen overall adequate. C4-C5: There is disc osteophyte complex and bulge. There is buckling of the ligamentum flavum. There is effacement of ventral and dorsal subarachnoid space with contact of the cord. Central canal is narrowed to 5 to 6 mm also with lateral recess stenosis bilaterally somewhat greater on the left. There is bilateral facet and uncovertebral degenerative change. There is fairly severe right greater than left neural foramina compromise. C5-C6: There is buckling of the ligamentum flavum. There is negligible disc osteophyte complex. Central canal is narrowed to about 7-8 mm. There is fairly severe bilateral facet degenerative change. There is [id number] left and at least moderate right neural foramina compromise. C6-C7: There is buckling of the ligamentum flavum. Central canal is minimally narrowed to about 9 mm. There is facet degenerative change. Right neural foramen is adequate, moderate to severe narrowing of the left neural foramen. C7-T1: Spinal canal is adequate. There is facet degenerative change. Right neural foramen is adequate, mild narrowing of the left neural foramen. Impression: 1. There is multifocal nonenhancing T2 and STIR hyperintense signal abnormality of the cord, evidence of inflammatory demyelinating disease. 2. There is spinal stenosis on the order of 6 mm at C4-5 with contact of the cord, lesser degree of mild spinal stenosis as described at C3-4, C5-6, C6-C7. 3. There is multilevel uncovertebral and facet degenerative change contributing to neural foramina compromise, more significant narrowing bilaterally at C4-C5 and on the left at C6-7, lesser degree of narrowing bilaterally at C5-C6. 4. There is mild degenerative disc disease and spondylosis at C4-5. Assessment/Plan Assessment/Plan Impression: Multiple sclerosis, suspect pseudo-exacerbation from infection. Lumbar spinal stenosis Cervical spondylosis on the MRI from 2 years ago Urinary tract infection Suspect non-STEMI Recommendations: Treat UTI Await COVID test Rehabilitation modalities Hold on steroids Cardiology and ID following. Thank you for letting me help with the patient's care. RADHA MUNOZ MD Jan 06, 2020 10:57
[2020-01-06] MEDS: OMEGA-3 FATTY ACIDS/FISH OIL 1,000 MG CAPSULE. PO SCH (11:58)
[2020-01-06] MEDS: PANTOPRAZOLE 40 MG TABLET.DR. PO SCH (11:58)
[2020-01-06] MEDS: VITAMIN A 10,000 UNIT CAPSULE. PO SCH (11:59)
[2020-01-06] MEDS: CHOLECALCIFEROL (VITAMIN D3) 5,000 UNIT CAPSULE PO SCH (11:59)
[2020-01-06] MEDS: TAMSULOSIN 0.4 MG CAP.ER.24H. PO SCH (11:59)
[2020-01-06] MEDS: FUROSEMIDE 40 MG TABLET. PO SCH (11:59)
[2020-01-06] MEDS: BACLOFEN 10 MG TABLET. PO SCH ×2 (14:36→19:59)
--- NOTE | 2020-01-06 14:58 | NUR ---
Wound Care Wound Type/Assessment: see wound assessment. patient has 3 buttock stage 2 pressure ulcers with, 1 open and multiple intact blisters. the areas were assessed, measured, pictured and redressed with A & D ointment at this time. Treatment Recommendations/Plan: Recommendations of A & D ointment. Offloading surface/device: P500 bed in hallway ( patient transferred to chair at this time with PT), wheelchair cushion ordered for patient. patient needs to be turning every 2 hours when in bed. Discharge Recommendations for dressings: Recommendations of continuing with the recommended plan and notified IZABELA Dorado about the POC and wound care will continue to f/u for changes.
--- NOTE | 2020-01-06 15:07 | CONS ---
DATE OF CONSULTATION: 01/06/2020 REQUESTING PHYSICIAN: Dr. Gamboa. REASON FOR CONSULTATION: Fever and UTI. HISTORY OF PRESENT ILLNESS: This is a 39-year-old -[place] gentleman with history of multiple sclerosis who normally walks with a walker, who came in with extreme weakness, unable to get up. The patient had that for 3 days. The patient had a fever. Denies any nausea, vomiting, diarrhea. Denies any cough, shortness of breath, chest pain, abdominal pain. The patient does do self-cath and he was found to have abnormal urinalysis. He does not have much feeling there. The patient had a fever up to 102.2. His CK was ____ . ALT, AST elevated, although surprisingly normal creatinine. The patient is comfortable right now. No other complaints. PAST MEDICAL HISTORY: Positive for multiple sclerosis. The patient has spinal stenosis and urinary retention with self-cath, also has diabetes, hypertension, and obesity. SOCIAL HISTORY: Negative for smoking, alcohol, illicit drug use. ALLERGIES: No known drug allergies. CURRENT MEDICATIONS: Reviewed. The patient received a dose of daptomycin and he is on Zosyn. REVIEW OF SYSTEMS: As per HPI, all other systems reviewed and are negative. PHYSICAL EXAMINATION: GENERAL: Alert, oriented gentleman, not in distress. VITAL SIGNS: Stable with T-max 102.2. HEENT: Both pupils are round and reacting. No conjunctival lesion. No lesion in mouth. NECK: Supple, no JVP, no lymphadenopathy. LUNGS: Clear. HEART: S1, S2 regular. ABDOMEN: Soft, nontender, no organomegaly. EXTREMITIES: No edema, cyanosis. SKIN: Unremarkable. NEUROLOGIC: The patient is alert, awake and appropriate. He does move all the extremities, but coordination is a problem and weakness is there. LABORATORY DATA: White count is 9.7, platelets are 179,000. BUN and creatinine is normal. His lactic acid has been normal. Urinalysis showed too numerous to count wbc's. Influenza screen negative. COVID-19 is pending. Blood cultures showed 1 of 3 bottles positive, Gram-positive cocci in clusters. Urine culture has multiple organisms. Chest x-ray unremarkable. IMPRESSION: 1. Severe weakness. 2. Rhabdomyolysis. 3. Fever. 4. Complicated urinary tract infection. 5. Multiple sclerosis. RECOMMENDATIONS: We will continue Zosyn. No need for daptomycin. We will follow the blood cultures. Supportive care. COVID-19 is pending and we will continue to follow. Thank you very much, Dr. Gamboa, for giving me the opportunity to participate in this patient's care. YUDY CARBONE MD DR: CHRISTOPHER/regis JOB#: [id number] / [id number]
--- NOTE | 2020-01-06 16:12 | PDOC ---
PROGRESS NOTES Date of Service DATE: 01/06/20 TIME: 16:10 Subjective Subjective Patient seen and evaluated Objective Objective Vital Signs Date Time Temp Pulse Resp B/P (MAP) Pulse Ox O2 Delivery O2 Flow Rate FiO2 01/06/20 15:06 98.9 80 18 132/67 (88) 97 Room Air 98.9 Intake and Output 01/06/20 07:00 Intake Total 1500 ml Output Total 2575 ml Balance -1075 ml Intake Oral 1500 ml Output Urine Total 2575 ml Assessment Assessment Problems Medical Problems: (1) Fever Status: Acute (2) Generalized weakness Status: Acute (3) Non-ST elevation DE (NSTEMI) Status: Acute (4) Person under investigation for COVID-19 Status: Acute 1. Generalized weakness and fatigue. History of MS and spinal stenosis. Fever of 100.5 in the emergency room. Patient has been started on antibiotics. He is feeling better. COVID testing is negative. 2. Minimally elevated troponins [place] 0[place] [address]. No acute ischemic EKG changes. Continuing on present treatment. Echo now in the COVID is negative. 3. Tachycardia. Monitoring. Improving with present treatment. Comment Review of Relevant I have reviewed the following items khushi (where applicable) has been applied. Labs Laboratory Tests Test 01/04/20 18:55 01/04/20 19:29 01/04/20 21:12 01/05/20 00:10 Coronavirus (PCR) Not detected (Not Detected) Influenza Type A Antigen Negative (NEGATIVE) Influenza Type B Antigen Negative (NEGATIVE) White Blood Count 10.6 x10^3/uL (4.0-11.0) Red Blood Count 5.53 x10^6/uL (4.30-5.70) Hemoglobin 15.3 g/dL (13.0-17.5) Hematocrit 44.9 % (39.0-53.0) Mean Corpuscular Volume 81 fL (79-100) Mean Corpuscular Hemoglobin 28 pg (25-35) Mean Corpuscular Hemoglobin Concent 34 g/dL (31-37) Red Cell Distribution Width 14.9 % (11.5-14.5) Platelet Count 189 x10^3/uL (140-400) Neutrophils (%) (Auto) 76 % (31-73) Lymphocytes (%) (Auto) 8 % (24-48) Monocytes (%) (Auto) 13 % (0-9) Eosinophils (%) (Auto) 2 % (0-3) Basophils (%) (Auto) 1 % (0-3) Neutrophils # (Auto) 8.1 x10^3/uL (1.8-7.7) Lymphocytes # (Auto) 0.9 x10^3/uL (1.0-4.8) Monocytes # (Auto) 1.4 x10^3/uL (0.0-1.1) Eosinophils # (Auto) 0.2 x10^3/uL (0.0-0.7) Basophils # (Auto) 0.1 x10^3/uL (0.0-0.2) Prothrombin Time 14.1 SEC (11.7-14.0) Prothromb Time International Ratio 1.1 (0.8-1.1) Activated Partial Thromboplast Time 32 SEC (24-38) Sodium Level 135 mmol/L (136-145) Potassium Level 3.9 mmol/L (3.5-5.1) Chloride Level 100 mmol/L (98-107) Carbon Dioxide Level 24 mmol/L (21-32) Anion Gap 11 (6-14) Blood Urea Nitrogen 21 mg/dL (8-26) Creatinine 1.3 mg/dL (0.7-1.3) Estimated GFR (Cockcroft-Gault) 74.0 BUN/Creatinine Ratio 16 (6-20) Glucose Level 143 mg/dL (70-99) Lactic Acid Level 1.3 mmol/L (0.4-2.0) Calcium Level 8.6 mg/dL (8.5-10.1) Magnesium Level 2.0 mg/dL (1.8-2.4) Ferritin 371 ng/mL (26-388) Total Bilirubin 1.0 mg/dL (0.2-1.0) Aspartate Amino Transf (AST/SGOT) 761 U/L (15-37) Alanine Aminotransferase (ALT/SGPT) 121 U/L (16-63) Alkaline Phosphatase 86 U/L (46-116) Creatine Kinase 60354 U/L (39-308) Creatine Kinase MB (Mass) 8.8 ng/mL (0.0-3.6) Creatine Kinase MB Relative Index 0.0 % (0-4) Troponin I Quantitative 0.614 ng/mL (0.000-0.055) 0.653 ng/mL (0.000-0.055) Total Protein 7.6 g/dL (6.4-8.2) Albumin 3.1 g/dL (3.4-5.0) Albumin/Globulin Ratio 0.7 (1.0-1.7) Procalcitonin 0.66 ng/mL (0.00-0.10) Thyroid Stimulating Hormone (TSH) 2.614 uIU/mL (0.358-3.74) Urine Collection Type Unknown Urine Color Elsy Urine Clarity Cloudy Urine pH 5.5 (<5.0-8.0) Urine Specific [place] 1.025 (1.000-1.030) Urine Protein 100 mg/dL (NEG-TRACE) Urine Glucose (UA) Negative mg/dL (NEG) Urine Ketones (Stick) 15 mg/dL (NEG) Urine Blood Large (NEG) Urine Nitrite Positive (NEG) Urine Bilirubin Small (NEG) Urine Urobilinogen Dipstick 1.0 mg/dL (0.2 mg/dL) Urine Leukocyte Esterase Moderate (NEG) Urine RBC 6-10 /HPF (0-2) Urine WBC Tntc /HPF (0-4) Urine Squamous Epithelial Cells Few /LPF Urine Amorphous Sediment Present /HPF Urine Bacteria Moderate /HPF (0-FEW) Urine Mucus Mod /LPF Test 01/05/20 05:00 01/05/20 17:30 01/05/20 20:25 01/06/20 04:20 White Blood Count 9.5 x10^3/uL (4.0-11.0) 9.3 x10^3/uL (4.0-11.0) 9.7 x10^3/uL (4.0-11.0) Red Blood Count 5.35 x10^6/uL (4.30-5.70) 5.04 x10^6/uL (4.30-5.70) 4.69 x10^6/uL (4.30-5.70) Hemoglobin 14.9 g/dL (13.0-17.5) 13.8 g/dL (13.0-17.5) 13.0 g/dL (13.0-17.5) Hematocrit 45.2 % (39.0-53.0) 40.9 % (39.0-53.0) 38.2 % (39.0-53.0) Mean Corpuscular Volume 84 fL (79-100) 81 fL (79-100) 82 fL (79-100) Mean Corpuscular Hemoglobin 28 pg (25-35) 27 pg (25-35) 28 pg (25-35) Mean Corpuscular Hemoglobin Concent 33 g/dL (31-37) 34 g/dL (31-37) 34 g/dL (31-37) Red Cell Distribution Width 15.7 % (11.5-14.5) 15.0 % (11.5-14.5) 15.1 % (11.5-14.5) Platelet Count 149 x10^3/uL (140-400) 196 x10^3/uL (140-400) 179 x10^3/uL (140-400) Neutrophils (%) (Auto) 65 % (31-73) 71 % (31-73) 67 % (31-73) Lymphocytes (%) (Auto) 14 % (24-48) 13 % (24-48) 12 % (24-48) Monocytes (%) (Auto) 18 % (0-9) 12 % (0-9) 16 % (0-9) Eosinophils (%) (Auto) 4 % (0-3) 3 % (0-3) 4 % (0-3) Basophils (%) (Auto) 1 % (0-3) 1 % (0-3) 0 % (0-3) Neutrophils # (Auto) 6.2 x10^3/uL (1.8-7.7) 6.7 x10^3/uL (1.8-7.7) 6.5 x10^3/uL (1.8-7.7) Lymphocytes # (Auto) 1.3 x10^3/uL (1.0-4.8) 1.2 x10^3/uL (1.0-4.8) 1.2 x10^3/uL (1.0-4.8) Monocytes # (Auto) 1.7 x10^3/uL (0.0-1.1) 1.1 x10^3/uL (0.0-1.1) 1.5 x10^3/uL (0.0-1.1) Eosinophils # (Auto) 0.3 x10^3/uL (0.0-0.7) 0.3 x10^3/uL (0.0-0.7) 0.4 x10^3/uL (0.0-0.7) Basophils # (Auto) 0.1 x10^3/uL (0.0-0.2) 0.1 x10^3/uL (0.0-0.2) 0.0 x10^3/uL (0.0-0.2) Sodium Level 137 mmol/L (136-145) 136 mmol/L (136-145) 139 mmol/L (136-145) Potassium Level 4.6 mmol/L (3.5-5.1) 4.1 mmol/L (3.5-5.1) 3.9 mmol/L (3.5-5.1) Chloride Level 104 mmol/L (98-107) 102 mmol/L (98-107) 105 mmol/L (98-107) Carbon Dioxide Level 23 mmol/L (21-32) 24 mmol/L (21-32) 24 mmol/L (21-32) Anion Gap 10 (6-14) 10 (6-14) 10 (6-14) Blood Urea Nitrogen 18 mg/dL (8-26) 12 mg/dL (8-26) 12 mg/dL (8-26) Creatinine 1.3 mg/dL (0.7-1.3) 1.1 mg/dL (0.7-1.3) 1.0 mg/dL (0.7-1.3) Estimated GFR (Cockcroft-Gault) 74.0 89.7 100.1 Glucose Level 100 mg/dL (70-99) 120 mg/dL (70-99) 118 mg/dL (70-99) Calcium Level 8.3 mg/dL (8.5-10.1) 8.5 mg/dL (8.5-10.1) 8.0 mg/dL (8.5-10.1) Magnesium Level 2.3 mg/dL (1.8-2.4) Troponin I Quantitative 0.758 ng/mL (0.000-0.055) 0.816 ng/mL (0.000-0.055) AE-Lgk-I-Type Natriuretic Peptide 31 pg/mL (0-124) Procalcitonin 0.58 ng/mL (0.00-0.10) Lactic Acid Level 1.2 mmol/L (0.4-2.0) 1.3 mmol/L (0.4-2.0) Fibrinogen 639 mg/dL (200-440) D-Dimer (Sanjuana) 2.63 ug/mlFEU (0.00-0.50) BUN/Creatinine Ratio 11 (6-20) Total Bilirubin 0.8 mg/dL (0.2-1.0) Aspartate Amino Transf (AST/SGOT) 483 U/L (15-37) Alanine Aminotransferase (ALT/SGPT) 108 U/L (16-63) Alkaline Phosphatase 65 U/L (46-116) Total Protein 6.5 g/dL (6.4-8.2) Albumin 2.4 g/dL (3.4-5.0) Albumin/Globulin Ratio 0.6 (1.0-1.7) Creatine Kinase 16766 U/L (39-308) Triglycerides Level 171 mg/dL (0-150) Cholesterol Level 194 mg/dL (0-200) LDL Cholesterol, Calculated 130 mg/dL (0-100) VLDL Cholesterol, Calculated 34 mg/dL (0-40) Non-HDL Cholesterol Calculated 164 mg/dL (0-129) HDL Cholesterol 30 mg/dL (40-60) Cholesterol/HDL Ratio 6.5 Laboratory Tests Test 01/05/20 17:30 01/05/20 20:25 01/06/20 04:20 White Blood Count 9.3 x10^3/uL (4.0-11.0) 9.7 x10^3/uL (4.0-11.0) Red Blood Count 5.04 x10^6/uL (4.30-5.70) 4.69 x10^6/uL (4.30-5.70) Hemoglobin 13.8 g/dL (13.0-17.5) 13.0 g/dL (13.0-17.5) Hematocrit 40.9 % (39.0-53.0) 38.2 % (39.0-53.0) Mean Corpuscular Volume 81 fL (79-100) 82 fL (79-100) Mean Corpuscular Hemoglobin 27 pg (25-35) 28 pg (25-35) Mean Corpuscular Hemoglobin Concent 34 g/dL (31-37) 34 g/dL (31-37) Red Cell Distribution Width 15.0 % (11.5-14.5) 15.1 % (11.5-14.5) Platelet Count 196 x10^3/uL (140-400) 179 x10^3/uL (140-400) Neutrophils (%) (Auto) 71 % (31-73) 67 % (31-73) Lymphocytes (%) (Auto) 13 % (24-48) 12 % (24-48) Monocytes (%) (Auto) 12 % (0-9) 16 % (0-9) Eosinophils (%) (Auto) 3 % (0-3) 4 % (0-3) Basophils (%) (Auto) 1 % (0-3) 0 % (0-3) Neutrophils # (Auto) 6.7 x10^3/uL (1.8-7.7) 6.5 x10^3/uL (1.8-7.7) Lymphocytes # (Auto) 1.2 x10^3/uL (1.0-4.8) 1.2 x10^3/uL (1.0-4.8) Monocytes # (Auto) 1.1 x10^3/uL (0.0-1.1) 1.5 x10^3/uL (0.0-1.1) Eosinophils # (Auto) 0.3 x10^3/uL (0.0-0.7) 0.4 x10^3/uL (0.0-0.7) Basophils # (Auto) 0.1 x10^3/uL (0.0-0.2) 0.0 x10^3/uL (0.0-0.2) Lactic Acid Level 1.2 mmol/L (0.4-2.0) 1.3 mmol/L (0.4-2.0) Fibrinogen 639 mg/dL (200-440) D-Dimer (Sanjuana) 2.63 ug/mlFEU (0.00-0.50) Sodium Level 136 mmol/L (136-145) 139 mmol/L (136-145) Potassium Level 4.1 mmol/L (3.5-5.1) 3.9 mmol/L (3.5-5.1) Chloride Level 102 mmol/L (98-107) 105 mmol/L (98-107) Carbon Dioxide Level 24 mmol/L (21-32) 24 mmol/L (21-32) Anion Gap 10 (6-14) 10 (6-14) Blood Urea Nitrogen 12 mg/dL (8-26) 12 mg/dL (8-26) Creatinine 1.1 mg/dL (0.7-1.3) 1.0 mg/dL (0.7-1.3) Estimated GFR (Cockcroft-Gault) 89.7 100.1 BUN/Creatinine Ratio 11 (6-20) Glucose Level 120 mg/dL (70-99) 118 mg/dL (70-99) Calcium Level 8.5 mg/dL (8.5-10.1) 8.0 mg/dL (8.5-10.1) Total Bilirubin 0.8 mg/dL (0.2-1.0) Aspartate Amino Transf (AST/SGOT) 483 U/L (15-37) Alanine Aminotransferase (ALT/SGPT) 108 U/L (16-63) Alkaline Phosphatase 65 U/L (46-116) Total Protein 6.5 g/dL (6.4-8.2) Albumin 2.4 g/dL (3.4-5.0) Albumin/Globulin Ratio 0.6 (1.0-1.7) Creatine Kinase 53758 U/L (39-308) Troponin I Quantitative 0.816 ng/mL (0.000-0.055) Triglycerides Level 171 mg/dL (0-150) Cholesterol Level 194 mg/dL (0-200) LDL Cholesterol, Calculated 130 mg/dL (0-100) VLDL Cholesterol, Calculated 34 mg/dL (0-40) Non-HDL Cholesterol Calculated 164 mg/dL (0-129) HDL Cholesterol 30 mg/dL (40-60) Cholesterol/HDL Ratio 6.5 Microbiology 01/05/20 Blood Culture - Preliminary, Resulted NO GROWTH AFTER 1 DAY 01/04/20 Urine Culture - Final, Complete Medications Current Medications Sodium Chloride 2,400 ml @ 2,400 mls/hr Q1H IV Last administered on 01/04/20at 21:04; Start 01/04/20 at 18:35; Stop 01/05/20 at 01:45; Status DC Acetaminophen (Tylenol) 1,000 mg 1X ONCE PO Last administered on 01/04/20at 18:49; Start 01/04/20 at 18:45; Stop 01/04/20 at 18:46; Status DC Azithromycin 250 ml @ 250 mls/hr 1X ONCE IV Last administered on 01/04/20at 21:05; Start 01/04/20 at 20:30; Stop 01/04/20 at 21:29; Status DC Ceftriaxone Sodium (Rocephin) 1 gm 1X ONCE IVP Last administered on 01/04/20at 21:05; Start 01/04/20 at 20:30; Stop 01/04/20 at 20:31; Status DC Aspirin (Aurora Aspirin) 325 mg 1X ONCE PO Last administered on 01/04/20at 21:04; Start 01/04/20 at 20:30; Stop 01/04/20 at 20:31; Status DC Enoxaparin Sodium (Lovenox Per Pharmacy Treatment Dosing) 1 each 1X STAT [facility] ; Start 01/04/20 at 20:28; Stop 01/04/20 at 20:31; Status DC Enoxaparin Sodium (Lovenox 150mg Syringe) 150 mg 1X ONCE SQ Last administered on 01/04/20at 21:04; Start 01/04/20 at 20:45; Stop 01/04/20 at 20:46; Status DC Ondansetron HCl (Zofran) 4 mg PRN Q8HRS PRN IV NAUSEA/VOMITING; Start 01/04/20 at 20:45; Stop 01/04/20 at 22:51; Status DC Morphine Sulfate (Morphine Sulfate) 4 mg PRN Q2HR PRN IV PAIN; Start 01/04/20 at 20:45; Stop 01/05/20 at 20:44; Status DC Acetaminophen (Tylenol) 650 mg PRN Q4HRS PRN PO FEVER > 100.3'F; Start 01/04/20 at 20:45; Stop 01/04/20 at 22:51; Status DC Sodium Chloride (Normal Saline Flush) 3 ml QSHIFT PRN IV AFTER MEDS AND BLOOD DRAWS; Start 01/04/20 at 22:45 Sodium Chloride 1,000 ml @ 100 mls/hr Q10H IV Last administered on 01/05/20at 18:12; Start 01/04/20 at 22:39; Stop 01/06/20 at 15:44; Status DC Ondansetron HCl (Zofran) 4 mg PRN Q4HRS PRN IV NAUSEA/VOMITING 1ST CHOICE; Start 01/04/20 at 22:45 Acetaminophen (Tylenol) 650 mg PRN Q4HRS PRN PO TEMP OVER 100.4F OR MILD PAIN Last administered on 01/06/20at 08:56; Start 01/04/20 at 22:45 Acetaminophen (Tylenol Supp) 650 mg PRN Q4HRS PRN IN TEMP OVER 100.4F OR MILD PAIN; Start 01/04/20 at 22:45 Al Hydroxide/Mg Hydroxide (Mylanta Plus Xs) 30 ml PRN DAILY PRN PO HEARTBURN / GAS; Start 01/04/20 at 22:45 Clonidine HCl (Catapres) 0.1 mg PRN Q6HRS PRN PO SBP>160 OR DBP>90; Start 01/04/20 at 22:45 Sodium Monofluorophosphate (Fleet Adult) 133 ml PRN DAILY PRN IN CONSTIPATION 1ST CHOICE; Start 01/04/20 at 22:45 Docusate Sodium (Colace) 100 mg PRN BID PRN PO HARD STOOLS; Start 01/04/20 at 22:45 Albuterol Sulfate (Ventolin Neb Soln) 2.5 mg PRN Q4HRS PRN NEB SHORTNESS OF BREATH; Start 01/04/20 at 22:45 Guaifenesin (Robitussin) 200 mg PRN Q4HRS PRN PO COUGH; Start 01/04/20 at 22:45 Lorazepam (Ativan) 0.5 mg PRN Q4HRS PRN PO ANXIETY / AGITATION Last administered on 01/05/20at 22:47; Start 01/04/20 at 22:45 Enoxaparin Sodium (Lovenox 40mg Syringe) 40 mg BID SQ Last administered on 01/06/20at 08:56; Start 01/04/20 at 22:45 Ceftriaxone Sodium (Rocephin) 1 gm Q24H IVP ; Start 01/05/20 at 20:00; Stop 01/05/20 at 13:40; Status DC Piperacillin Sod/ Tazobactam Sod 3.375 gm/Sodium Chloride 50 ml @ 100 mls/hr Q6HRS IV Last administered on 01/06/20at 11:58; Start 01/05/20 at 18:00 Lactobacillus Rhamnosus (Culturelle) 1 cap BID PO Last administered on 01/06/20at 08:56; Start 01/05/20 at 21:00; Stop 01/06/20 at 14:43; Status DC Daptomycin 650 mg/ Sodium Chloride 50 ml @ 100 mls/hr 1X ONCE IV Last administered on 01/05/20at 19:54; Start 01/05/20 at 19:30; Stop 01/05/20 at 19:59; Status DC Sodium Chloride 2,250 ml @ 2,250 mls/hr Q1H IV Last administered on 01/06/20at 04:15; Start 01/05/20 at 20:21; Stop 01/06/20 at 14:41; Status DC Sodium Chloride 500 ml @ 1,000 mls/hr PRN Q30MIN PRN IV SEE COMMENTS; Start 01/05/20 at 20:30 Sodium Chloride 1,000 ml @ 200 mls/hr Q5H IV Last administered on 01/06/20at 14:36; Start 01/05/20 at 22:00 Furosemide (Lasix) 40 mg DAILY PO Last administered on 01/06/20at 11:59; Start 01/06/20 at 12:00 Tamsulosin HCl (Flomax) 0.8 mg DAILY PO Last administered on 01/06/20at 11:59; Start 01/06/20 at 12:00 Baclofen (Lioresal) 20 mg TID PO Last administered on 01/06/20at 14:36; Start 01/06/20 at 14:00 Vitamin D (Vitamin D3) 5,000 unit DAILY PO Last administered on 01/06/20at 11:59; Start 01/06/20 at 12:00 Pantoprazole Sodium (Protonix) 40 mg DAILYAC PO Last administered on 01/06/20 11:58; Start 01/06/20 at 11:30 Fish Oil (Fish Oil) 1,000 mg DAILY PO Last administered on 01/06/20at 11:58; Start 01/06/20 at 12:00 Vitamin A 10,000 unit DAILY PO Last administered on 01/06/20at 11:59; Start 01/06/20 at 12:00 Active Scripts Active Reported D3-50 (Cholecalciferol (Vitamin D3)) 50,000 Unit Capsule 125 Mcg PO DAILY Fish Oil 1,000 Mg Softgel ([place]-3/Dha/Epa/Fish Oil) 1 Each Capsule 1 Each PO DAILY Furosemide 40 Mg Tablet 40 Mg PO DAILY Nexium Capsule (Esomeprazole Magnesium) 40 Mg Capsule.dr 40 Mg PO DAILYAC Vitamin A 8,000 Unit Capsule 2,400 Mcg PO DAILY Myrbetriq (Mirabegron) 25 Mg Tab.er.24h 25 Mg PO DAILY Dalfampridine ER (Dalfampridine) 10 Mg Tab.er.12h 10 Mg PO Q12HR Baclofen 20 Mg Tablet 1 Tab PO TID Tamsulosin Hcl 0.4 Mg Cap.er.24h 2 Cap PO DAILY Vitals/I & O Vital Sign - Last 24 Hours 01/05/20 01/05/20 01/05/20 01/05/20 16:39 19:57 19:57 23:02 Temp 101.8 102.1 102.2 101.8 102.1 102.2 Pulse 105 110 Resp 20 24 B/P (MAP) 129/87 (101) 149/70 (96) Pulse Ox 97 96 O2 Delivery Room Air Room Air Room Air 01/06/20 01/06/20 01/06/20 01/06/20 00:30 03:49 07:15 08:15 Temp 100.8 98.5 98.9 100.8 98.5 98.9 Pulse 116 83 98 Resp 24 21 22 B/P (MAP) 140/73 (95) 140/77 (98) 175/104 (127) Pulse Ox 96 96 98 O2 Delivery Room Air Room Air Room Air Room Air 01/06/20 01/06/20 11:20 15:06 Temp 98.2 98.9 98.2 98.9 Pulse 90 80 Resp 18 18 B/P (MAP) 155/87 (109) 132/67 (88) Pulse Ox 98 97 O2 Delivery Room Air Room Air Intake and Output 01/05/20 01/05/20 01/06/20 15:00 23:00 07:00 Intake Total 500 ml 360 ml 640 ml Output Total 2000 ml 575 ml Balance 500 ml -1640 ml 65 ml Justifications for Admission Other Justification ESTELLA RUIZ MD Jan 06, 2020 16:12
--- NOTE | 2020-01-06 17:10 | NUR ---
SW following. Spoke with RN and reviewed chart. Pt from home. Pt's mother lives with pt. Pt currently on room air, IV Zosyn, COVID negative, Vegetarian diet. PT/OT recommendation for acute rehab. Spoke with pt and pt's mother. Patient choice of vendor form completed. MASTER phoned and faxed referral for acute rehab to Jose at [facility]. SW following.
--- NOTE | 2020-01-06 18:08 | PDOC ---
[employer] PROGRESS NOTE Date of Service DOS: DATE: 01/06/20 TIME: 18:03 Chief Complaint Chief Complaint Fever History of Present Illness History of Present Illness Patient has been afebrile today. Broad-spectrum IV antibiotics started. Patient receives most of his care at , but states he came to this hospital because he prefers the care he receives. Patient prefers Velázquez catheter to condom catheter due to comfort. Vitals/I&O Vitals/I&O: Vital Signs Date Time Temp Pulse Resp B/P (MAP) Pulse Ox O2 Delivery O2 Flow Rate FiO2 01/06/20 15:06 98.9 80 18 132/67 (88) 97 Room Air 98.9 I & O 01/05/20 01/05/20 01/06/20 15:00 23:00 07:00 Intake Total 500 ml 360 ml 640 ml Output Total 2000 ml 575 ml Balance 500 ml -1640 ml 65 ml Physical Exam General: Alert, Oriented X3, Cooperative Heart: Regular rate Lungs: Other (Normal work of breathing, breathing comfortably on room air) Abdomen: Normal bowel sounds Extremities: No cyanosis Skin: No rashes, No significant lesion Labs Labs: Laboratory Tests Test 01/05/20 20:25 01/06/20 04:20 Fibrinogen 639 mg/dL (200-440) D-Dimer (Sanjuana) 2.63 ug/mlFEU (0.00-0.50) Sodium Level 136 mmol/L (136-145) 139 mmol/L (136-145) Potassium Level 4.1 mmol/L (3.5-5.1) 3.9 mmol/L (3.5-5.1) Chloride Level 102 mmol/L (98-107) 105 mmol/L (98-107) Carbon Dioxide Level 24 mmol/L (21-32) 24 mmol/L (21-32) Anion Gap 10 (6-14) 10 (6-14) Blood Urea Nitrogen 12 mg/dL (8-26) 12 mg/dL (8-26) Creatinine 1.1 mg/dL (0.7-1.3) 1.0 mg/dL (0.7-1.3) Estimated GFR (Cockcroft-Gault) 89.7 100.1 BUN/Creatinine Ratio 11 (6-20) Glucose Level 120 mg/dL (70-99) 118 mg/dL (70-99) Lactic Acid Level 1.3 mmol/L (0.4-2.0) Calcium Level 8.5 mg/dL (8.5-10.1) 8.0 mg/dL (8.5-10.1) Total Bilirubin 0.8 mg/dL (0.2-1.0) Aspartate Amino Transf (AST/SGOT) 483 U/L (15-37) Alanine Aminotransferase (ALT/SGPT) 108 U/L (16-63) Alkaline Phosphatase 65 U/L (46-116) Total Protein 6.5 g/dL (6.4-8.2) Albumin 2.4 g/dL (3.4-5.0) Albumin/Globulin Ratio 0.6 (1.0-1.7) White Blood Count 9.7 x10^3/uL (4.0-11.0) Red Blood Count 4.69 x10^6/uL (4.30-5.70) Hemoglobin 13.0 g/dL (13.0-17.5) Hematocrit 38.2 % (39.0-53.0) Mean Corpuscular Volume 82 fL (79-100) Mean Corpuscular Hemoglobin 28 pg (25-35) Mean Corpuscular Hemoglobin Concent 34 g/dL (31-37) Red Cell Distribution Width 15.1 % (11.5-14.5) Platelet Count 179 x10^3/uL (140-400) Neutrophils (%) (Auto) 67 % (31-73) Lymphocytes (%) (Auto) 12 % (24-48) Monocytes (%) (Auto) 16 % (0-9) Eosinophils (%) (Auto) 4 % (0-3) Basophils (%) (Auto) 0 % (0-3) Neutrophils # (Auto) 6.5 x10^3/uL (1.8-7.7) Lymphocytes # (Auto) 1.2 x10^3/uL (1.0-4.8) Monocytes # (Auto) 1.5 x10^3/uL (0.0-1.1) Eosinophils # (Auto) 0.4 x10^3/uL (0.0-0.7) Basophils # (Auto) 0.0 x10^3/uL (0.0-0.2) Creatine Kinase 18926 U/L (39-308) Troponin I Quantitative 0.816 ng/mL (0.000-0.055) Triglycerides Level 171 mg/dL (0-150) Cholesterol Level 194 mg/dL (0-200) LDL Cholesterol, Calculated 130 mg/dL (0-100) VLDL Cholesterol, Calculated 34 mg/dL (0-40) Non-HDL Cholesterol Calculated 164 mg/dL (0-129) HDL Cholesterol 30 mg/dL (40-60) Cholesterol/HDL Ratio 6.5 Assessment and Plan Assessmemt and Plan Problems Medical Problems: (1) Fever Status: Acute (2) Generalized weakness Status: Acute (3) Non-ST elevation IN (NSTEMI) Status: Acute (4) Person under investigation for COVID-19 Status: Acute Comment Review of Relevant I have reviewed the following items khushi (where applicable) has been applied. Medications: Current Medications Medications (Trade) Dose Ordered Sig/Hayde Route PRN Reason Start Time Stop Time Status Last Admin Dose Admin Lactobacillus Rhamnosus (Culturelle) 1 cap BID PO 01/05/20 21:00 01/06/20 14:43 DC 01/06/20 08:56 Daptomycin 650 mg/ Sodium Chloride 50 ml @ 100 mls/hr 1X ONCE IV 01/05/20 19:30 01/05/20 19:59 DC 01/05/20 19:54 Sodium Chloride 2,250 ml @ 2,250 mls/hr Q1H IV 01/05/20 20:21 01/06/20 14:41 DC 01/06/20 04:15 Sodium Chloride 1,000 ml @ 200 mls/hr Q5H IV 01/05/20 22:00 01/06/20 14:36 Furosemide (Lasix) 40 mg DAILY PO 01/06/20 12:00 01/06/20 11:59 Tamsulosin HCl (Flomax) 0.8 mg DAILY PO 01/06/20 12:00 01/06/20 11:59 Baclofen (Lioresal) 20 mg TID PO 01/06/20 14:00 01/06/20 14:36 Vitamin D (Vitamin D3) 5,000 unit DAILY PO 01/06/20 12:00 01/06/20 11:59 Pantoprazole Sodium (Protonix) 40 mg DAILYAC PO 01/06/20 11:30 01/06/20 11:58 Fish Oil (Fish Oil) 1,000 mg DAILY PO 01/06/20 12:00 01/06/20 11:58 Vitamin A 10,000 unit DAILY PO 01/06/20 12:00 01/06/20 11:59 Justifications for Admission Other Justification URIEL ESTEVEZ MD Jan 06, 2020 18:07
[2020-01-06] MEDS: VITS A & D/LANOLIN TOPICAL OINTMENT 42GM TUBE. TP SCH (19:58)
[2020-01-07] MEDS: IV NORMAL SALINE 1000ML BAG 1,000 ML IV SCH ×7 (00:22→22:41)
[2020-01-07 03:31] VITALS: BP 133/78
--- NOTE | 2020-01-07 04:19 | EKG ---
[facility] [address] [place] [address] Test Date: 2020-01-04 Test Time: 18:52:05 Pat Name: WADE KIRK Department: Room: Gender: M Client Support Coordinator: : 1980 Requested By: HAWA SAUNDERS Order Number: [id number] Reading MD: Measurements Intervals [place] Rate: 118 P: 68 ME: 144 QRS: 75 QRSD: 92 T: 30 QT: 312 QTc: 439 Interpretive Statements SINUS TACHYCARDIA R-S TRANSITION ZONE IN V LEADS DISPLACED TO THE LEFT OTHERWISE NORMAL ECG RI6.02 No previous ECG available for comparison
[2020-01-07] MEDS: PIPERACILLIN/TAZOBACTAM 3.375 GM in IV NORMAL SALINE 50ML 50 ML IV SCH ×5 (05:33→22:38)
[2020-01-07 06:26] LABS: BASO % 0 % (0-3); EOS # 0.6 x10^3/uL (0.0-0.7); EOS % 6 % (0-3); HEMATOCRIT 34.5 % (39.0-53.0); HEMOGLOBIN 11.7 g/dL (13.0-17.5); LYMPH % 11 % (24-48); MEAN CORPUSCULAR HEMOGLOBIN 28 pg (25-35); MEAN CORPUSCULAR HGB CONC 34 g/dL (31-37); MEAN CORPUSCULAR VOLUME 82 fL (79-100); MONO % 11 % (0-9); NEUT # 6.7 x10^3/uL (1.8-7.7); NEUT % 72 % (31-73); PLATELET COUNT 178 x10^3/uL (140-400); RED BLOOD COUNT 4.23 x10^6/uL (4.30-5.70); WHITE BLOOD COUNT 9.4 x10^3/uL (4.0-11.0)
[2020-01-07 06:43] LABS: CALCIUM 8.1 mg/dL (8.5-10.1); CREATININE 0.8 mg/dL (0.7-1.3); GFR 129.5; POTASSIUM 3.6 mmol/L (3.5-5.1)
[2020-01-07 07:13] VITALS: BP 135/71
[2020-01-07] MEDS: TAMSULOSIN 0.4 MG CAP.ER.24H. PO SCH (09:30)
[2020-01-07] MEDS: PANTOPRAZOLE 40 MG TABLET.DR. PO SCH (09:30)
[2020-01-07] MEDS: FUROSEMIDE 40 MG TABLET. PO SCH (09:30)
[2020-01-07] MEDS: BACLOFEN 10 MG TABLET. PO SCH ×3 (09:30→22:34)
[2020-01-07] MEDS: VITAMIN A 10,000 UNIT CAPSULE. PO SCH (09:31)
[2020-01-07] MEDS: CHOLECALCIFEROL (VITAMIN D3) 5,000 UNIT CAPSULE PO SCH (09:31)
[2020-01-07] MEDS: OMEGA-3 FATTY ACIDS/FISH OIL 1,000 MG CAPSULE. PO SCH (09:31)
[2020-01-07] MEDS: ENOXAPARIN 40 MG/0.4 ML SYRINGE. SQ SCH ×2 (09:31→22:34)
[2020-01-07] MEDS: VITS A & D/LANOLIN TOPICAL OINTMENT 42GM TUBE. TP SCH ×2 (09:31→22:37)
--- NOTE | 2020-01-07 09:52 | NUR ---
MASTER following. Spoke with RN and reviewed chart. Pt remains on room air and IV Zosyn. Spoke with pt who remains agreeable to acute rehab at discharge. Pt is also open to SNU referral (preference is [facility]) if insurance won't cover acute rehab. Patient Choice of Vendor form updated. Spoke with Jose from [facility] and faxed him updated clinicals from today. Jose to submit for authorization today. MASTER to continue following. Addendum: 01/07/20 at 1259 by LAURA THAO Confirmed with Jose that insurance authorization was sent today. Addendum: 01/08/20 at 1311 by LAURA THAO Pt transferred to [facility].
--- NOTE | 2020-01-07 11:19 | PDOC ---
Infectious Disease Note Subjective Subjective feeling better ROS ROS no n/v//d/sob Vital Sign Vital Signs Vital Signs Date Time Temp Pulse Resp B/P (MAP) Pulse Ox O2 Delivery O2 Flow Rate FiO2 01/07/20 07:13 98.5 75 17 135/71 (92) 97 Room Air 98.5 Physical Exam PHYSICAL EXAM GENERAL: Alert, oriented gentleman, not in distress. VITAL SIGNS: Stable HEENT: Both pupils are round and reacting. No conjunctival lesion. No lesion in mouth. NECK: Supple, no JVP, no lymphadenopathy. LUNGS: Clear. HEART: S1, S2 regular. ABDOMEN: Soft, nontender, no organomegaly. EXTREMITIES: No edema, cyanosis. SKIN: Unremarkable. NEUROLOGIC: The patient is alert, awake and appropriate. He does move all the extremities, but coordination is a problem and weakness is there. Labs Lab Laboratory Tests Test 01/07/20 05:40 White Blood Count 9.4 x10^3/uL (4.0-11.0) Red Blood Count 4.23 x10^6/uL (4.30-5.70) Hemoglobin 11.7 g/dL (13.0-17.5) Hematocrit 34.5 % (39.0-53.0) Mean Corpuscular Volume 82 fL (79-100) Mean Corpuscular Hemoglobin 28 pg (25-35) Mean Corpuscular Hemoglobin Concent 34 g/dL (31-37) Red Cell Distribution Width 15.0 % (11.5-14.5) Platelet Count 178 x10^3/uL (140-400) Neutrophils (%) (Auto) 72 % (31-73) Lymphocytes (%) (Auto) 11 % (24-48) Monocytes (%) (Auto) 11 % (0-9) Eosinophils (%) (Auto) 6 % (0-3) Basophils (%) (Auto) 0 % (0-3) Neutrophils # (Auto) 6.7 x10^3/uL (1.8-7.7) Lymphocytes # (Auto) 1.0 x10^3/uL (1.0-4.8) Monocytes # (Auto) 1.0 x10^3/uL (0.0-1.1) Eosinophils # (Auto) 0.6 x10^3/uL (0.0-0.7) Basophils # (Auto) 0.0 x10^3/uL (0.0-0.2) Sodium Level 139 mmol/L (136-145) Potassium Level 3.6 mmol/L (3.5-5.1) Chloride Level 106 mmol/L (98-107) Carbon Dioxide Level 24 mmol/L (21-32) Anion Gap 9 (6-14) Blood Urea Nitrogen 10 mg/dL (8-26) Creatinine 0.8 mg/dL (0.7-1.3) Estimated GFR (Cockcroft-Gault) 129.5 Glucose Level 107 mg/dL (70-99) Calcium Level 8.1 mg/dL (8.5-10.1) Creatine Kinase 49904 U/L (39-308) Micro Microbiology 01/05/20 Blood Culture - Preliminary, Resulted NO GROWTH AFTER 1 DAY 01/04/20 Urine Culture - Final, Complete Objective Assessment IMPRESSION: 1. Severe weakness. 2. Rhabdomyolysis. 3. Fever. 4. Complicated urinary tract infection. 5. Multiple sclerosis. Plan Plan of Care covid neg culture neg cont antibiotics YUDY CARBONE MD Jan 07, 2020 11:19
[2020-01-07 11:35] VITALS: BP 153/75
--- NOTE | 2020-01-07 11:52 | PDOC ---
PROGRESS NOTES Date of Service DATE: 01/07/20 TIME: 11:49 Assessment Problems Medical Problems: (1) Fever Status: Acute (2) Generalized weakness Status: Acute (3) Non-ST elevation MT (NSTEMI) Status: Acute (4) Person under investigation for COVID-19 Status: Acute Multiple sclerosis, suspect pseudo-exacerbation from infection. Lumbar spinal stenosis Cervical spondylosis on the MRI from 2 years ago Urinary tract infection Suspect non-STEMI Rhabdomyolysis COVID negative Plan Treat UTI Rehabilitation modalities Hold on steroids Cardiology and ID following. 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 Oriented to time, place and person. PERRL. EOMI. CN: no focal findings. Muscle tone: normal. Muscle strength: 5-/5 strength in arms, 4/5 legs, with normal tone and bulk. Weaker in right leg DTR: 2+ Plantar reflex: flexor Gait: not examined in bed. Sensory exam: no abnormal findings. No cerebellar signs elicited. Review of Relevant I have reviewed the following items khushi (where applicable) has been applied. Labs Laboratory Tests Test 01/05/20 17:30 01/05/20 20:25 01/06/20 04:20 01/07/20 05:40 White Blood Count 9.3 x10^3/uL (4.0-11.0) 9.7 x10^3/uL (4.0-11.0) 9.4 x10^3/uL (4.0-11.0) Red Blood Count 5.04 x10^6/uL (4.30-5.70) 4.69 x10^6/uL (4.30-5.70) 4.23 x10^6/uL (4.30-5.70) Hemoglobin 13.8 g/dL (13.0-17.5) 13.0 g/dL (13.0-17.5) 11.7 g/dL (13.0-17.5) Hematocrit 40.9 % (39.0-53.0) 38.2 % (39.0-53.0) 34.5 % (39.0-53.0) Mean Corpuscular Volume 81 fL (79-100) 82 fL (79-100) 82 fL (79-100) Mean Corpuscular Hemoglobin 27 pg (25-35) 28 pg (25-35) 28 pg (25-35) Mean Corpuscular Hemoglobin Concent 34 g/dL (31-37) 34 g/dL (31-37) 34 g/dL (31-37) Red Cell Distribution Width 15.0 % (11.5-14.5) 15.1 % (11.5-14.5) 15.0 % (11.5-14.5) Platelet Count 196 x10^3/uL (140-400) 179 x10^3/uL (140-400) 178 x10^3/uL (140-400) Neutrophils (%) (Auto) 71 % (31-73) 67 % (31-73) 72 % (31-73) Lymphocytes (%) (Auto) 13 % (24-48) 12 % (24-48) 11 % (24-48) Monocytes (%) (Auto) 12 % (0-9) 16 % (0-9) 11 % (0-9) Eosinophils (%) (Auto) 3 % (0-3) 4 % (0-3) 6 % (0-3) Basophils (%) (Auto) 1 % (0-3) 0 % (0-3) 0 % (0-3) Neutrophils # (Auto) 6.7 x10^3/uL (1.8-7.7) 6.5 x10^3/uL (1.8-7.7) 6.7 x10^3/uL (1.8-7.7) Lymphocytes # (Auto) 1.2 x10^3/uL (1.0-4.8) 1.2 x10^3/uL (1.0-4.8) 1.0 x10^3/uL (1.0-4.8) Monocytes # (Auto) 1.1 x10^3/uL (0.0-1.1) 1.5 x10^3/uL (0.0-1.1) 1.0 x10^3/uL (0.0-1.1) Eosinophils # (Auto) 0.3 x10^3/uL (0.0-0.7) 0.4 x10^3/uL (0.0-0.7) 0.6 x10^3/uL (0.0-0.7) Basophils # (Auto) 0.1 x10^3/uL (0.0-0.2) 0.0 x10^3/uL (0.0-0.2) 0.0 x10^3/uL (0.0-0.2) Lactic Acid Level 1.2 mmol/L (0.4-2.0) 1.3 mmol/L (0.4-2.0) Fibrinogen 639 mg/dL (200-440) D-Dimer (Sanjuana) 2.63 ug/mlFEU (0.00-0.50) Sodium Level 136 mmol/L (136-145) 139 mmol/L (136-145) 139 mmol/L (136-145) Potassium Level 4.1 mmol/L (3.5-5.1) 3.9 mmol/L (3.5-5.1) 3.6 mmol/L (3.5-5.1) Chloride Level 102 mmol/L (98-107) 105 mmol/L (98-107) 106 mmol/L (98-107) Carbon Dioxide Level 24 mmol/L (21-32) 24 mmol/L (21-32) 24 mmol/L (21-32) Anion Gap 10 (6-14) 10 (6-14) 9 (6-14) Blood Urea Nitrogen 12 mg/dL (8-26) 12 mg/dL (8-26) 10 mg/dL (8-26) Creatinine 1.1 mg/dL (0.7-1.3) 1.0 mg/dL (0.7-1.3) 0.8 mg/dL (0.7-1.3) Estimated GFR (Cockcroft-Gault) 89.7 100.1 129.5 BUN/Creatinine Ratio 11 (6-20) Glucose Level 120 mg/dL (70-99) 118 mg/dL (70-99) 107 mg/dL (70-99) Calcium Level 8.5 mg/dL (8.5-10.1) 8.0 mg/dL (8.5-10.1) 8.1 mg/dL (8.5-10.1) Total Bilirubin 0.8 mg/dL (0.2-1.0) Aspartate Amino Transf (AST/SGOT) 483 U/L (15-37) Alanine Aminotransferase (ALT/SGPT) 108 U/L (16-63) Alkaline Phosphatase 65 U/L (46-116) Total Protein 6.5 g/dL (6.4-8.2) Albumin 2.4 g/dL (3.4-5.0) Albumin/Globulin Ratio 0.6 (1.0-1.7) Creatine Kinase 72984 U/L (39-308) 86148 U/L (39-308) Troponin I Quantitative 0.816 ng/mL (0.000-0.055) Triglycerides Level 171 mg/dL (0-150) Cholesterol Level 194 mg/dL (0-200) LDL Cholesterol, Calculated 130 mg/dL (0-100) VLDL Cholesterol, Calculated 34 mg/dL (0-40) Non-HDL Cholesterol Calculated 164 mg/dL (0-129) HDL Cholesterol 30 mg/dL (40-60) Cholesterol/HDL Ratio 6.5 Laboratory Tests Test 01/07/20 05:40 White Blood Count 9.4 x10^3/uL (4.0-11.0) Red Blood Count 4.23 x10^6/uL (4.30-5.70) Hemoglobin 11.7 g/dL (13.0-17.5) Hematocrit 34.5 % (39.0-53.0) Mean Corpuscular Volume 82 fL (79-100) Mean Corpuscular Hemoglobin 28 pg (25-35) Mean Corpuscular Hemoglobin Concent 34 g/dL (31-37) Red Cell Distribution Width 15.0 % (11.5-14.5) Platelet Count 178 x10^3/uL (140-400) Neutrophils (%) (Auto) 72 % (31-73) Lymphocytes (%) (Auto) 11 % (24-48) Monocytes (%) (Auto) 11 % (0-9) Eosinophils (%) (Auto) 6 % (0-3) Basophils (%) (Auto) 0 % (0-3) Neutrophils # (Auto) 6.7 x10^3/uL (1.8-7.7) Lymphocytes # (Auto) 1.0 x10^3/uL (1.0-4.8) Monocytes # (Auto) 1.0 x10^3/uL (0.0-1.1) Eosinophils # (Auto) 0.6 x10^3/uL (0.0-0.7) Basophils # (Auto) 0.0 x10^3/uL (0.0-0.2) Sodium Level 139 mmol/L (136-145) Potassium Level 3.6 mmol/L (3.5-5.1) Chloride Level 106 mmol/L (98-107) Carbon Dioxide Level 24 mmol/L (21-32) Anion Gap 9 (6-14) Blood Urea Nitrogen 10 mg/dL (8-26) Creatinine 0.8 mg/dL (0.7-1.3) Estimated GFR (Cockcroft-Gault) 129.5 Glucose Level 107 mg/dL (70-99) Calcium Level 8.1 mg/dL (8.5-10.1) Creatine Kinase 21845 U/L (39-308) Microbiology 01/05/20 Blood Culture - Preliminary, Resulted NO GROWTH AFTER 1 DAY 01/04/20 Urine Culture - Final, Complete Medications Current Medications Sodium Chloride 2,400 ml @ 2,400 mls/hr Q1H IV Last administered on 01/04/20at 21:04; Start 01/04/20 at 18:35; Stop 01/05/20 at 01:45; Status DC Acetaminophen (Tylenol) 1,000 mg 1X ONCE PO Last administered on 01/04/20at 18: 49; Start 01/04/20 at 18:45; Stop 01/04/20 at 18:46; Status DC Azithromycin 250 ml @ 250 mls/hr 1X ONCE IV Last administered on 01/04/20at 21:05; Start 01/04/20 at 20:30; Stop 01/04/20 at 21:29; Status DC Ceftriaxone Sodium (Rocephin) 1 gm 1X ONCE IVP Last administered on 01/04/20at 21:05; Start 01/04/20 at 20:30; Stop 01/04/20 at 20:31; Status DC Aspirin (Aurora Aspirin) 325 mg 1X ONCE PO Last administered on 01/04/20at 21:04; Start 01/04/20 at 20:30; Stop 01/04/20 at 20:31; Status DC Enoxaparin Sodium (Lovenox Per Pharmacy Treatment Dosing) 1 each 1X STAT [facility] ; Start 01/04/20 at 20:28; Stop 01/04/20 at 20:31; Status DC Enoxaparin Sodium (Lovenox 150mg Syringe) 150 mg 1X ONCE SQ Last administered on 01/04/20at 21:04; Start 01/04/20 at 20:45; Stop 01/04/20 at 20:46; Status DC Ondansetron HCl (Zofran) 4 mg PRN Q8HRS PRN IV NAUSEA/VOMITING; Start 01/04/20 at 20:45; Stop 01/04/20 at 22:51; Status DC Morphine Sulfate (Morphine Sulfate) 4 mg PRN Q2HR PRN IV PAIN; Start 01/04/20 at 20:45; Stop 01/05/20 at 20:44; Status DC Acetaminophen (Tylenol) 650 mg PRN Q4HRS PRN PO FEVER > 100.3'F; Start 01/04/20 at 20:45; Stop 01/04/20 at 22:51; Status DC Sodium Chloride (Normal Saline Flush) 3 ml QSHIFT PRN IV AFTER MEDS AND BLOOD DRAWS; Start 01/04/20 at 22:45 Sodium Chloride 1,000 ml @ 100 mls/hr Q10H IV Last administered on 01/05/20at 18:12; Start 01/04/20 at 22:39; Stop 01/06/20 at 15:44; Status DC Ondansetron HCl (Zofran) 4 mg PRN Q4HRS PRN IV NAUSEA/VOMITING 1ST CHOICE; Start 01/04/20 at 22:45 Acetaminophen (Tylenol) 650 mg PRN Q4HRS PRN PO TEMP OVER 100.4F OR MILD PAIN Last administered on 01/06/20at 08:56; Start 01/04/20 at 22:45 Acetaminophen (Tylenol Supp) 650 mg PRN Q4HRS PRN NC TEMP OVER 100.4F OR MILD PAIN; Start 01/04/20 at 22:45 Al Hydroxide/Mg Hydroxide (Mylanta Plus Xs) 30 ml PRN DAILY PRN PO HEARTBURN / GAS; Start 01/04/20 at 22:45 Clonidine HCl (Catapres) 0.1 mg PRN Q6HRS PRN PO SBP>160 OR DBP>90; Start 01/04/20 at 22:45 Sodium Monofluorophosphate (Fleet Adult) 133 ml PRN DAILY PRN NC CONSTIPATION 1ST CHOICE; Start 01/04/20 at 22:45 Docusate Sodium (Colace) 100 mg PRN BID PRN PO HARD STOOLS; Start 01/04/20 at 22:45 Albuterol Sulfate (Ventolin Neb Soln) 2.5 mg PRN Q4HRS PRN NEB SHORTNESS OF BREATH; Start 01/04/20 at 22:45 Guaifenesin (Robitussin) 200 mg PRN Q4HRS PRN PO COUGH; Start 01/04/20 at 22:45 Lorazepam (Ativan) 0.5 mg PRN Q4HRS PRN PO ANXIETY / AGITATION Last administered on 01/05/20at 22:47; Start 01/04/20 at 22:45 Enoxaparin Sodium (Lovenox 40mg Syringe) 40 mg BID SQ Last administered on 01/07/20at 09:31; Start 01/04/20 at 22:45 Ceftriaxone Sodium (Rocephin) 1 gm Q24H IVP ; Start 01/05/20 at 20:00; Stop 01/05/20 at 13:40; Status DC Piperacillin Sod/ Tazobactam Sod 3.375 gm/Sodium Chloride 50 ml @ 100 mls/hr Q6HRS IV Last administered on 01/07/20at 05:33; Start 01/05/20 at 18:00 Lactobacillus Rhamnosus (Culturelle) 1 cap BID PO Last administered on 12/23 08/11at 08:56; Start 01/05/20 at 21:00; Stop 01/06/20 at 14:43; Status DC Daptomycin 650 mg/ Sodium Chloride 50 ml @ 100 mls/hr 1X ONCE IV Last administered on 01/05/20at 19:54; Start 01/05/20 at 19:30; Stop 01/05/20 at 19:59; Status DC Sodium Chloride 2,250 ml @ 2,250 mls/hr Q1H IV Last administered on 01/06/20 04:15; Start 01/05/20 at 20:21; Stop 01/06/20 at 14:41; Status DC Sodium Chloride 500 ml @ 1,000 mls/hr PRN Q30MIN PRN IV SEE COMMENTS; Start 01/05/20 at 20:30 Sodium Chloride 1,000 ml @ 200 mls/hr Q5H IV Last administered on 01/07/20at 11:30; Start 01/05/20 at 22:00 Furosemide (Lasix) 40 mg DAILY PO Last administered on 01/07/20 09:30; Start 01/06/20 at 12:00 Tamsulosin HCl (Flomax) 0.8 mg DAILY PO Last administered on 01/07/20 09:30; Start 01/06/20 at 12:00 Baclofen (Lioresal) 20 mg TID PO Last administered on 01/07/20 09:30; Start 01/06/20 at 14:00 Vitamin D (Vitamin D3) 5,000 unit DAILY PO Last administered on 01/07/20 09:31; Start 01/06/20 at 12:00 Pantoprazole Sodium (Protonix) 40 mg DAILYAC PO Last administered on 01/07/20 09:30; Start 01/06/20 at 11:30 Fish Oil (Fish Oil) 1,000 mg DAILY PO Last administered on 01/07/20 09:31; Start 01/06/20 at 12:00 Vitamin A 10,000 unit DAILY PO Last administered on 01/07/20 09:31; Start 01/06/20 at 12:00 Vitamin A/Vitamin D (Vitamin A & D Ointment) 1 leida BID TP Last administered on 01/07/20 09:31; Start 01/06/20 at 21:00 Active Scripts Active Reported D3-50 (Cholecalciferol (Vitamin D3)) 50,000 Unit Capsule 125 Mcg PO DAILY Fish Oil 1,000 Mg Softgel ([place]-3/Dha/Epa/Fish Oil) 1 Each Capsule 1 Each PO DAILY Furosemide 40 Mg Tablet 40 Mg PO DAILY Nexium Capsule (Esomeprazole Magnesium) 40 Mg Capsule.dr 40 Mg PO DAILYAC Vitamin A 8,000 Unit Capsule 2,400 Mcg PO DAILY Myrbetriq (Mirabegron) 25 Mg Tab.er.24h 25 Mg PO DAILY Dalfampridine ER (Dalfampridine) 10 Mg Tab.er.12h 10 Mg PO Q12HR Baclofen 20 Mg Tablet 1 Tab PO TID Tamsulosin Hcl 0.4 Mg Cap.er.24h 2 Cap PO DAILY Vitals/I & O Vital Sign - Last 24 Hours 01/06/20 01/06/20 01/06/20 01/06/20 15:06 19:54 20:00 23:24 Temp 98.9 100.9 98.4 98.9 100.9 98.4 Pulse 80 105 103 Resp 18 18 20 B/P (MAP) 132/67 (88) 140/87 (104) 141/72 (95) Pulse Ox 97 100 100 O2 Delivery Room Air Room Air Room Air Room Air 01/07/20 01/07/20 01/07/20 01/07/20 03:31 07:13 08:00 11:35 Temp 98.8 98.5 98.7 98.8 98.5 98.7 Pulse 91 75 79 Resp B/P (MAP) 133/78 (96) 135/71 (92) 153/75 (101) Pulse Ox 97 97 98 O2 Delivery Room Air Room Air Room Air Room Air Intake and Output 01/06/20 01/06/20 01/07/20 14:59 22:59 06:59 Intake Total 500 ml 1600 ml 2000 ml Output Total 3000 ml 1000 ml Balance 500 ml -1400 ml 1000 ml Justicifation of Admission Dx: Justifications for Admission: Justification of Admission Dx: Yes RADHA MUNOZ MD Jan 07, 2020 11:52
--- NOTE | 2020-01-07 12:21 | PDOC ---
[facility] PROGRESS NOTE Date of Service DOS: DATE: 01/07/20 TIME: 12:19 Chief Complaint Chief Complaint Fever History of Present Illness History of Present Illness Patient reports slight improvement in his weakness, working with physical therapy. His COVID-19 is negative. Discussed etiology of his MS flare might be secondary to acute infection. Echocardiogram pending. Vitals/I&O Vitals/I&O: Vital Signs Date Time Temp Pulse Resp B/P (MAP) Pulse Ox O2 Delivery O2 Flow Rate FiO2 01/07/20 11:35 98.7 79 20 153/75 (101) 98 Room Air 98.7 I & O 01/06/20 01/06/20 01/07/20 15:00 23:00 07:00 Intake Total 500 ml 1600 ml 2000 ml Output Total 3000 ml 1000 ml Balance 500 ml -1400 ml 1000 ml Physical Exam Physical Exam: GENERAL: Alert, oriented gentleman, not in distress. VITAL SIGNS: Stable HEENT: Both pupils are round and reacting. No conjunctival lesion. No lesion in mouth. NECK: Supple, no JVP, no lymphadenopathy. LUNGS: Clear. HEART: S1, S2 regular. ABDOMEN: Soft, nontender, no organomegaly. EXTREMITIES: No edema, cyanosis. SKIN: Unremarkable. NEUROLOGIC: The patient is alert, awake and appropriate. He does move all the extremities, but coordination is a problem and weakness is there. General: Alert, Oriented X3, Cooperative Heart: Regular rate Lungs: Other (Normal work of breathing, breathing comfortably on room air) Abdomen: Normal bowel sounds Extremities: No cyanosis Skin: No rashes, No significant lesion Labs Labs: Laboratory Tests Test 01/07/20 05:40 White Blood Count 9.4 x10^3/uL (4.0-11.0) Red Blood Count 4.23 x10^6/uL (4.30-5.70) Hemoglobin 11.7 g/dL (13.0-17.5) Hematocrit 34.5 % (39.0-53.0) Mean Corpuscular Volume 82 fL (79-100) Mean Corpuscular Hemoglobin 28 pg (25-35) Mean Corpuscular Hemoglobin Concent 34 g/dL (31-37) Red Cell Distribution Width 15.0 % (11.5-14.5) Platelet Count 178 x10^3/uL (140-400) Neutrophils (%) (Auto) 72 % (31-73) Lymphocytes (%) (Auto) 11 % (24-48) Monocytes (%) (Auto) 11 % (0-9) Eosinophils (%) (Auto) 6 % (0-3) Basophils (%) (Auto) 0 % (0-3) Neutrophils # (Auto) 6.7 x10^3/uL (1.8-7.7) Lymphocytes # (Auto) 1.0 x10^3/uL (1.0-4.8) Monocytes # (Auto) 1.0 x10^3/uL (0.0-1.1) Eosinophils # (Auto) 0.6 x10^3/uL (0.0-0.7) Basophils # (Auto) 0.0 x10^3/uL (0.0-0.2) Sodium Level 139 mmol/L (136-145) Potassium Level 3.6 mmol/L (3.5-5.1) Chloride Level 106 mmol/L (98-107) Carbon Dioxide Level 24 mmol/L (21-32) Anion Gap 9 (6-14) Blood Urea Nitrogen 10 mg/dL (8-26) Creatinine 0.8 mg/dL (0.7-1.3) Estimated GFR (Cockcroft-Gault) 129.5 Glucose Level 107 mg/dL (70-99) Calcium Level 8.1 mg/dL (8.5-10.1) Creatine Kinase 24075 U/L (39-308) Assessment and Plan Assessmemt and Plan Problems Medical Problems: (1) Fever Status: Acute (2) Generalized weakness Status: Acute (3) Non-ST elevation CO (NSTEMI) Status: Acute (4) Person under investigation for COVID-19 Status: Acute Comment Review of Relevant I have reviewed the following items khushi (where applicable) has been applied. Medications: Current Medications Medications (Trade) Dose Ordered Sig/Hayde Route PRN Reason Start Time Stop Time Status Last Admin Dose Admin Baclofen (Lioresal) 20 mg TID PO 01/06/20 14:00 01/07/20 09:30 Vitamin A/Vitamin D (Vitamin A & D Ointment) 1 leida BID TP 01/06/20 21:00 01/07/20 09:31 Justifications for Admission Other Justification URIEL ESTEVEZ MD Jan 07, 2020 12:21
--- NOTE | 2020-01-07 12:47 | PDOC ---
[facility] Progress Notes Date and Time Date of Service 01/07/2020 Time of Evaluation 1240 Subjective Subjective: No Chest Pain, No shortness of breath, No Palpitations Vitals Vitals Vital Signs Date Time Temp Pulse Resp B/P (MAP) Pulse Ox O2 Delivery O2 Flow Rate FiO2 01/07/20 11:35 98.7 79 20 153/75 (101) 98 Room Air 98.7 Weight Weight [ ] Input and Output Intake and Output Intake and Output 01/07/20 07:00 Intake Total 4100 ml Output Total 4000 ml Balance 100 ml Intake Oral 1500 ml Other 2600 ml Output Urine Total 4000 ml Laboratory Labs Laboratory Tests Test 01/07/20 05:40 White Blood Count 9.4 x10^3/uL (4.0-11.0) Red Blood Count 4.23 x10^6/uL (4.30-5.70) Hemoglobin 11.7 g/dL (13.0-17.5) Hematocrit 34.5 % (39.0-53.0) Mean Corpuscular Volume 82 fL (79-100) Mean Corpuscular Hemoglobin 28 pg (25-35) Mean Corpuscular Hemoglobin Concent 34 g/dL (31-37) Red Cell Distribution Width 15.0 % (11.5-14.5) Platelet Count 178 x10^3/uL (140-400) Neutrophils (%) (Auto) 72 % (31-73) Lymphocytes (%) (Auto) 11 % (24-48) Monocytes (%) (Auto) 11 % (0-9) Eosinophils (%) (Auto) 6 % (0-3) Basophils (%) (Auto) 0 % (0-3) Neutrophils # (Auto) 6.7 x10^3/uL (1.8-7.7) Lymphocytes # (Auto) 1.0 x10^3/uL (1.0-4.8) Monocytes # (Auto) 1.0 x10^3/uL (0.0-1.1) Eosinophils # (Auto) 0.6 x10^3/uL (0.0-0.7) Basophils # (Auto) 0.0 x10^3/uL (0.0-0.2) Sodium Level 139 mmol/L (136-145) Potassium Level 3.6 mmol/L (3.5-5.1) Chloride Level 106 mmol/L (98-107) Carbon Dioxide Level 24 mmol/L (21-32) Anion Gap 9 (6-14) Blood Urea Nitrogen 10 mg/dL (8-26) Creatinine 0.8 mg/dL (0.7-1.3) Estimated GFR (Cockcroft-Gault) 129.5 Glucose Level 107 mg/dL (70-99) Calcium Level 8.1 mg/dL (8.5-10.1) Creatine Kinase 57363 U/L (39-308) Microbiology Micro Microbiology 01/05/20 Blood Culture - Preliminary, Resulted NO GROWTH AFTER 1 DAY 01/04/20 Urine Culture - Final, Complete Physical Exam HEENT: Neck Supple W Full Motion Chest: Symmetric LUNGS: Clear to Auscultation Heart: S1S2, RRR (SR) Abdomen: Soft N/T, Other (obese) Extremities: No Calf Tenderness Neurology: alert, oriented, follow commands Assessment Assessment 1. Mechanical fall with severe rhabdomyolysis: reported being on the floor after a fall from to Monday 2. Hx of MS/spinal stenosis 3. Severe rhabdomyolysis: trending down 4. NSTEMI: peaked trop at 0.8, no cardiac symptoms.No acute EKG changes due to rhabdo/fall. covid neg 5. Transaminitis: per PCP 6. Reactive sinus tachycardia 7. Morbid obesity 8. DLP 9. Fever/UTI: per PCP 10. Metabolic syndrome Recommendations 1. No syncopal spells and so far no arrhythmias. check TTE 2. Aggressive hydration 3. Monitor CK. Could consider for outpt stress test given his risk factors. Await TTE result Justicifation of Admission Dx: Justifications for Admission: Justification of Admission Dx: Yes JAYLEN STANTON [employer] Jan 07, 2020 12:47
[2020-01-07 15:00] VITALS: BP 115/76
[2020-01-07] MEDS: ACETAMINOPHEN 325 MG TABLET. PO PRN (15:35)
[2020-01-07 19:15] VITALS: BP 110/68
[2020-01-07] MEDS: LORazepam 0.5 MG TABLET PO PRN (22:34)
[2020-01-07 22:53] VITALS: BP 119/69
[2020-01-08 03:59] VITALS: BP 118/69
[2020-01-08 05:42] LABS: BASO % 0 % (0-3); EOS # 0.6 x10^3/uL (0.0-0.7); EOS % 7 % (0-3); HEMATOCRIT 34.1 % (39.0-53.0); HEMOGLOBIN 11.6 g/dL (13.0-17.5); LYMPH % 11 % (24-48); MEAN CORPUSCULAR HEMOGLOBIN 28 pg (25-35); MEAN CORPUSCULAR HGB CONC 34 g/dL (31-37); MEAN CORPUSCULAR VOLUME 82 fL (79-100); MONO # 0.8 x10^3/uL (0.0-1.1); MONO % 9 % (0-9); NEUT # 6.6 x10^3/uL (1.8-7.7); NEUT % 73 % (31-73); PLATELET COUNT 191 x10^3/uL (140-400); RED BLOOD COUNT 4.16 x10^6/uL (4.30-5.70); RED CELL DISTRIBUTION WIDTH 14.8 % (11.5-14.5); WHITE BLOOD COUNT 9.1 x10^3/uL (4.0-11.0)
[2020-01-08 06:11] LABS: CALCIUM 8.3 mg/dL (8.5-10.1); CREATININE 0.7 mg/dL (0.7-1.3); GFR 151.1; POTASSIUM 3.7 mmol/L (3.5-5.1)
[2020-01-08 07:00] VITALS: BP 118/70
--- NOTE | 2020-01-08 08:02 | PDOC ---
[facility] PROGRESS NOTE Date of Service DOS: DATE: 01/08/20 TIME: 07:57 Chief Complaint Chief Complaint Fever Severe weakness. Rhabdomyolysis. Complicated urinary tract infection. Multiple sclerosis. Morbid obesity NSTEMI - trop 0.8 Transaminitis - 2/2 rhabdo Urinary retention - straight cath 3x daily History of Present Illness History of Present Illness Mr Samuels is a 39-year-old M w/ PMHx multiple sclerosis in 2011, he follows with Dr. Pedroza at , and is on a study medication of monthly injections for his multiple sclerosis. He's admitted with generalized weakness and found to have urinary tract infection. Patient reports slight improvement in his weakness, working with physical therapy. His COVID-19 is negative. Discussed etiology of his MS flare might be secondary to acute infection. Echocardiogram pending. final urine culture with NGTD Vitals/I&O Vitals/I&O: Vital Signs Date Time Temp Pulse Resp B/P (MAP) Pulse Ox O2 Delivery O2 Flow Rate FiO2 01/08/20 03:59 99.6 91 16 118/69 (85) 95 Room Air 99.6 I & O 01/07/20 01/07/20 01/08/20 15:00 23:00 07:00 Intake Total 1050 ml 200 ml 100 ml Output Total 800 ml 1300 ml 1300 ml Balance 250 ml -1100 ml -1200 ml Physical Exam Physical Exam: GENERAL: Alert, oriented gentleman, not in distress. VITAL SIGNS: Stable HEENT: Both pupils are round and reacting. No conjunctival lesion. No lesion in mouth. NECK: Supple, no JVP, no lymphadenopathy. LUNGS: Clear. HEART: S1, S2 regular. ABDOMEN: Soft, nontender, no organomegaly. EXTREMITIES: No edema, cyanosis. SKIN: Unremarkable. NEUROLOGIC: The patient is alert, awake and appropriate. He does move all the extremities, but coordination is a problem and weakness is there. General: Alert, Oriented X3, Cooperative Heart: Regular rate Lungs: Other (Normal work of breathing, breathing comfortably on room air) Abdomen: Normal bowel sounds Extremities: No cyanosis Skin: No rashes, No significant lesion Labs Labs: Laboratory Tests Test 01/08/20 03:20 White Blood Count 9.1 x10^3/uL (4.0-11.0) Red Blood Count 4.16 x10^6/uL (4.30-5.70) Hemoglobin 11.6 g/dL (13.0-17.5) Hematocrit 34.1 % (39.0-53.0) Mean Corpuscular Volume 82 fL (79-100) Mean Corpuscular Hemoglobin 28 pg (25-35) Mean Corpuscular Hemoglobin Concent 34 g/dL (31-37) Red Cell Distribution Width 14.8 % (11.5-14.5) Platelet Count 191 x10^3/uL (140-400) Neutrophils (%) (Auto) 73 % (31-73) Lymphocytes (%) (Auto) 11 % (24-48) Monocytes (%) (Auto) 9 % (0-9) Eosinophils (%) (Auto) 7 % (0-3) Basophils (%) (Auto) 0 % (0-3) Neutrophils # (Auto) 6.6 x10^3/uL (1.8-7.7) Lymphocytes # (Auto) 1.0 x10^3/uL (1.0-4.8) Monocytes # (Auto) 0.8 x10^3/uL (0.0-1.1) Eosinophils # (Auto) 0.6 x10^3/uL (0.0-0.7) Basophils # (Auto) 0.0 x10^3/uL (0.0-0.2) Sodium Level 140 mmol/L (136-145) Potassium Level 3.7 mmol/L (3.5-5.1) Chloride Level 106 mmol/L (98-107) Carbon Dioxide Level 26 mmol/L (21-32) Anion Gap 8 (6-14) Blood Urea Nitrogen 11 mg/dL (8-26) Creatinine 0.7 mg/dL (0.7-1.3) Estimated GFR (Cockcroft-Gault) 151.1 Glucose Level 98 mg/dL (70-99) Calcium Level 8.3 mg/dL (8.5-10.1) Assessment and Plan Assessmemt and Plan Problems Medical Problems: (1) Fever Status: Acute (2) Generalized weakness Status: Acute (3) Non-ST elevation CA (NSTEMI) Status: Acute (4) Person under investigation for COVID-19 Status: Acute Comment Review of Relevant I have reviewed the following items khushi (where applicable) has been applied. Justifications for Admission Other Justification RIFFEL,CHRISTOPHER S MD Jan 08, 2020 08:02
--- NOTE | 2020-01-08 08:22 | PDOC ---
Infectious Disease Note Subjective Subjective feeling better ROS ROS no n/v/d/pain Vital Sign Vital Signs Vital Signs Date Time Temp Pulse Resp B/P (MAP) Pulse Ox O2 Delivery O2 Flow Rate FiO2 01/08/20 03:59 99.6 91 16 118/69 (85) 95 Room Air 99.6 Physical Exam PHYSICAL EXAM GENERAL: Alert, oriented gentleman, not in distress. VITAL SIGNS: Stable HEENT: Both pupils are round and reacting. No conjunctival lesion. No lesion in mouth. NECK: Supple, no JVP, no lymphadenopathy. LUNGS: Clear. HEART: S1, S2 regular. ABDOMEN: Soft, nontender, no organomegaly. EXTREMITIES: No edema, cyanosis. SKIN: Unremarkable. NEUROLOGIC: The patient is alert, awake and appropriate. He does move all the extremities, but coordination is a problem and weakness is there. Labs Lab Laboratory Tests Test 01/08/20 03:20 White Blood Count 9.1 x10^3/uL (4.0-11.0) Red Blood Count 4.16 x10^6/uL (4.30-5.70) Hemoglobin 11.6 g/dL (13.0-17.5) Hematocrit 34.1 % (39.0-53.0) Mean Corpuscular Volume 82 fL (79-100) Mean Corpuscular Hemoglobin 28 pg (25-35) Mean Corpuscular Hemoglobin Concent 34 g/dL (31-37) Red Cell Distribution Width 14.8 % (11.5-14.5) Platelet Count 191 x10^3/uL (140-400) Neutrophils (%) (Auto) 73 % (31-73) Lymphocytes (%) (Auto) 11 % (24-48) Monocytes (%) (Auto) 9 % (0-9) Eosinophils (%) (Auto) 7 % (0-3) Basophils (%) (Auto) 0 % (0-3) Neutrophils # (Auto) 6.6 x10^3/uL (1.8-7.7) Lymphocytes # (Auto) 1.0 x10^3/uL (1.0-4.8) Monocytes # (Auto) 0.8 x10^3/uL (0.0-1.1) Eosinophils # (Auto) 0.6 x10^3/uL (0.0-0.7) Basophils # (Auto) 0.0 x10^3/uL (0.0-0.2) Sodium Level 140 mmol/L (136-145) Potassium Level 3.7 mmol/L (3.5-5.1) Chloride Level 106 mmol/L (98-107) Carbon Dioxide Level 26 mmol/L (21-32) Anion Gap 8 (6-14) Blood Urea Nitrogen 11 mg/dL (8-26) Creatinine 0.7 mg/dL (0.7-1.3) Estimated GFR (Cockcroft-Gault) 151.1 Glucose Level 98 mg/dL (70-99) Calcium Level 8.3 mg/dL (8.5-10.1) Micro Microbiology 01/05/20 Blood Culture - Preliminary, Resulted NO GROWTH AFTER 1 DAY 01/04/20 Urine Culture - Final, Complete Objective Assessment IMPRESSION: 1. Severe weakness. 2. Rhabdomyolysis. 3. Fever. 4. Complicated urinary tract infection. 5. Multiple sclerosis. 6 BC coag neg staph, two species, contaminant Plan Plan of Care covid neg urine culture neg change zosyn to po augmentin ok to d/c to Rehab YUDY CARBONE MD Jan 08, 2020 08:22
--- NOTE | 2020-01-08 08:35 | PDOC ---
PROGRESS NOTES Date of Service DATE: 01/08/20 TIME: 08:33 Assessment Problems Medical Problems: (1) Fever Status: Acute (2) Generalized weakness Status: Acute (3) Non-ST elevation [place] (NSTEMI) Status: Acute (4) Person under investigation for COVID-19 Status: Acute Multiple sclerosis, suspect pseudo-exacerbation from infection. Lumbar spinal stenosis Cervical spondylosis on the MRI from 2 years ago Urinary tract infection Suspect non-STEMI Rhabdomyolysis COVID negative Plan Treat UTI Rehabilitation modalities, I understand plan is to transfer to [facility] rehab Hold on steroids Cardiology and ID following. Follow-up as scheduled with his sign painter at for epidural injection lumbar spine Subjective Still has back pain Objective Vital Signs Date Time Temp Pulse Resp B/P (MAP) Pulse Ox O2 Delivery O2 Flow Rate FiO2 01/08/20 03:59 99.6 91 16 118/69 (85) 95 Room Air 99.6 Intake and Output 01/08/20 07:00 Intake Total 1350 ml Output Total 3400 ml Balance -2050 ml Intake Oral 300 ml IV Total 1050 ml Output Urine Total 3400 ml PHYSICAL EXAM Alert. Oriented to time, place and person. PERRL. EOMI. left exotropia intermittently CN: no focal findings. Muscle tone: normal. Muscle strength: 5-/5 strength in arms, 4/5 left leg, 3/5 right leg, with normal tone and bulk. DTR: 2+ Plantar reflex: flexor Gait: not examined in bed. Sensory exam: no abnormal findings. No cerebellar signs elicited. Review of Relevant I have reviewed the following items khushi (where applicable) has been applied. Labs Laboratory Tests Test 01/07/20 05:40 01/08/20 03:20 White Blood Count 9.4 x10^3/uL (4.0-11.0) 9.1 x10^3/uL (4.0-11.0) Red Blood Count 4.23 x10^6/uL (4.30-5.70) 4.16 x10^6/uL (4.30-5.70) Hemoglobin 11.7 g/dL (13.0-17.5) 11.6 g/dL (13.0-17.5) Hematocrit 34.5 % (39.0-53.0) 34.1 % (39.0-53.0) Mean Corpuscular Volume 82 fL (79-100) 82 fL (79-100) Mean Corpuscular Hemoglobin 28 pg (25-35) 28 pg (25-35) Mean Corpuscular Hemoglobin Concent 34 g/dL (31-37) 34 g/dL (31-37) Red Cell Distribution Width 15.0 % (11.5-14.5) 14.8 % (11.5-14.5) Platelet Count 178 x10^3/uL (140-400) 191 x10^3/uL (140-400) Neutrophils (%) (Auto) 72 % (31-73) 73 % (31-73) Lymphocytes (%) (Auto) 11 % (24-48) 11 % (24-48) Monocytes (%) (Auto) 11 % (0-9) 9 % (0-9) Eosinophils (%) (Auto) 6 % (0-3) 7 % (0-3) Basophils (%) (Auto) 0 % (0-3) 0 % (0-3) Neutrophils # (Auto) 6.7 x10^3/uL (1.8-7.7) 6.6 x10^3/uL (1.8-7.7) Lymphocytes # (Auto) 1.0 x10^3/uL (1.0-4.8) 1.0 x10^3/uL (1.0-4.8) Monocytes # (Auto) 1.0 x10^3/uL (0.0-1.1) 0.8 x10^3/uL (0.0-1.1) Eosinophils # (Auto) 0.6 x10^3/uL (0.0-0.7) 0.6 x10^3/uL (0.0-0.7) Basophils # (Auto) 0.0 x10^3/uL (0.0-0.2) 0.0 x10^3/uL (0.0-0.2) Sodium Level 139 mmol/L (136-145) 140 mmol/L (136-145) Potassium Level 3.6 mmol/L (3.5-5.1) 3.7 mmol/L (3.5-5.1) Chloride Level 106 mmol/L (98-107) 106 mmol/L (98-107) Carbon Dioxide Level 24 mmol/L (21-32) 26 mmol/L (21-32) Anion Gap 9 (6-14) 8 (6-14) Blood Urea Nitrogen 10 mg/dL (8-26) 11 mg/dL (8-26) Creatinine 0.8 mg/dL (0.7-1.3) 0.7 mg/dL (0.7-1.3) Estimated GFR (Cockcroft-Gault) 129.5 151.1 Glucose Level 107 mg/dL (70-99) 98 mg/dL (70-99) Calcium Level 8.1 mg/dL (8.5-10.1) 8.3 mg/dL (8.5-10.1) Creatine Kinase 22081 U/L (39-308) Laboratory Tests Test 01/08/20 03:20 White Blood Count 9.1 x10^3/uL (4.0-11.0) Red Blood Count 4.16 x10^6/uL (4.30-5.70) Hemoglobin 11.6 g/dL (13.0-17.5) Hematocrit 34.1 % (39.0-53.0) Mean Corpuscular Volume 82 fL (79-100) Mean Corpuscular Hemoglobin 28 pg (25-35) Mean Corpuscular Hemoglobin Concent 34 g/dL (31-37) Red Cell Distribution Width 14.8 % (11.5-14.5) Platelet Count 191 x10^3/uL (140-400) Neutrophils (%) (Auto) 73 % (31-73) Lymphocytes (%) (Auto) 11 % (24-48) Monocytes (%) (Auto) 9 % (0-9) Eosinophils (%) (Auto) 7 % (0-3) Basophils (%) (Auto) 0 % (0-3) Neutrophils # (Auto) 6.6 x10^3/uL (1.8-7.7) Lymphocytes # (Auto) 1.0 x10^3/uL (1.0-4.8) Monocytes # (Auto) 0.8 x10^3/uL (0.0-1.1) Eosinophils # (Auto) 0.6 x10^3/uL (0.0-0.7) Basophils # (Auto) 0.0 x10^3/uL (0.0-0.2) Sodium Level 140 mmol/L (136-145) Potassium Level 3.7 mmol/L (3.5-5.1) Chloride Level 106 mmol/L (98-107) Carbon Dioxide Level 26 mmol/L (21-32) Anion Gap 8 (6-14) Blood Urea Nitrogen 11 mg/dL (8-26) Creatinine 0.7 mg/dL (0.7-1.3) Estimated GFR (Cockcroft-Gault) 151.1 Glucose Level 98 mg/dL (70-99) Calcium Level 8.3 mg/dL (8.5-10.1) Microbiology 01/05/20 Blood Culture - Preliminary, Resulted NO GROWTH AFTER 2 DAYS 01/04/20 Urine Culture - Final, Complete Medications Current Medications Sodium Chloride 2,400 ml @ 2,400 mls/hr Q1H IV Last administered on 01/04/20at 21:04; Start 01/04/20 at 18:35; Stop 01/05/20 at 01:45; Status DC Acetaminophen (Tylenol) 1,000 mg 1X ONCE PO Last administered on 01/04/20at 18:49; Start 01/04/20 at 18:45; Stop 01/04/20 at 18:46; Status DC Azithromycin 250 ml @ 250 mls/hr 1X ONCE IV Last administered on 01/04/20 21:05; Start 01/04/20 at 20:30; Stop 01/04/20 at 21:29; Status DC Ceftriaxone Sodium (Rocephin) 1 gm 1X ONCE IVP Last administered on 01/04/20at 21:05; Start 01/04/20 at 20:30; Stop 01/04/20 at 20:31; Status DC Aspirin (Aurora Aspirin) 325 mg 1X ONCE PO Last administered on 01/04/20 21:04; Start 01/04/20 at 20:30; Stop 01/04/20 at 20:31; Status DC Enoxaparin Sodium (Lovenox Per Pharmacy Treatment Dosing) 1 each 1X STAT [facility] ; Start 01/04/20 at 20:28; Stop 01/04/20 at 20:31; Status DC Enoxaparin Sodium (Lovenox 150mg Syringe) 150 mg 1X ONCE SQ Last administered on 01/04/20at 21:04; Start 01/04/20 at 20:45; Stop 01/04/20 at 20:46; Status DC Ondansetron HCl (Zofran) 4 mg PRN Q8HRS PRN IV NAUSEA/VOMITING; Start 01/04/20 at 20:45; Stop 01/04/20 at 22:51; Status DC Morphine Sulfate (Morphine Sulfate) 4 mg PRN Q2HR PRN IV PAIN; Start 01/04/20 at 20:45; Stop 01/05/20 at 20:44; Status DC Acetaminophen (Tylenol) 650 mg PRN Q4HRS PRN PO FEVER > 100.3'F; Start 01/04/20 at 20:45; Stop 01/04/20 at 22:51; Status DC Sodium Chloride (Normal Saline Flush) 3 ml QSHIFT PRN IV AFTER MEDS AND BLOOD DRAWS; Start 01/04/20 at 22:45 Sodium Chloride 1,000 ml @ 100 mls/hr Q10H IV Last administered on 01/05/20at 18:12; Start 01/04/20 at 22:39; Stop 01/06/20 at 15:44; Status DC Ondansetron HCl (Zofran) 4 mg PRN Q4HRS PRN IV NAUSEA/VOMITING 1ST CHOICE; Start 01/04/20 at 22:45 Acetaminophen (Tylenol) 650 mg PRN Q4HRS PRN PO TEMP OVER 100.4F OR MILD PAIN Last administered on 01/07/20at 15:35; Start 01/04/20 at 22:45 Acetaminophen (Tylenol Supp) 650 mg PRN Q4HRS PRN NV TEMP OVER 100.4F OR MILD P AIN; Start 01/04/20 at 22:45 Al Hydroxide/Mg Hydroxide (Mylanta Plus Xs) 30 ml PRN DAILY PRN PO HEARTBURN / GAS; Start 01/04/20 at 22:45 Clonidine HCl (Catapres) 0.1 mg PRN Q6HRS PRN PO SBP>160 OR DBP>90; Start 01/04/20 at 22:45 Sodium Monofluorophosphate (Fleet Adult) 133 ml PRN DAILY PRN NV CONSTIPATION 1ST CHOICE; Start 01/04/20 at 22:45 Docusate Sodium (Colace) 100 mg PRN BID PRN PO HARD STOOLS; Start 01/04/20 at 22:45 Albuterol Sulfate (Ventolin Neb Soln) 2.5 mg PRN Q4HRS PRN NEB SHORTNESS OF BREATH; Start 01/04/20 at 22:45 Guaifenesin (Robitussin) 200 mg PRN Q4HRS PRN PO COUGH; Start 01/04/20 at 22:45 Lorazepam (Ativan) 0.5 mg PRN Q4HRS PRN PO ANXIETY / AGITATION Last administered on 01/07/20at 22:34; Start 01/04/20 at 22:45 Enoxaparin Sodium (Lovenox 40mg Syringe) 40 mg BID SQ Last administered on 01/07/20at 22:34; Start 01/04/20 at 22:45 Ceftriaxone Sodium (Rocephin) 1 gm Q24H IVP ; Start 01/05/20 at 20:00; Stop 01/05/20 at 13:40; Status DC Piperacillin Sod/ Tazobactam Sod 3.375 gm/Sodium Chloride 50 ml @ 100 mls/hr Q6HRS IV Last administered on 01/07/20at 22:38; Start 01/05/20 at 18:00 Lactobacillus Rhamnosus (Culturelle) 1 cap BID PO Last administered on 01/06/20at 08:56; Start 01/05/20 at 21:00; Stop 01/06/20 at 14:43; Status DC Daptomycin 650 mg/ Sodium Chloride 50 ml @ 100 mls/hr 1X ONCE IV Last administered on 01/05/20at 19:54; Start 01/05/20 at 19:30; Stop 01/05/20 at 19:59; Status DC Sodium Chloride 2,250 ml @ 2,250 mls/hr Q1H IV Last administered on 01/06/20at 04:15; Start 01/05/20 at 20:21; Stop 01/06/20 at 14:41; Status DC Sodium Chloride 500 ml @ 1,000 mls/hr PRN Q30MIN PRN IV SEE COMMENTS; Start 01/05/20 at 20:30 Sodium Chloride 1,000 ml @ 200 mls/hr Q5H IV Last administered on 01/07/20at 22:41; Start 01/05/20 at 22:00 Furosemide (Lasix) 40 mg DAILY PO Last administered on 01/07/20 09:30; Start 01/06/20 at 12:00 Tamsulosin HCl (Flomax) 0.8 mg DAILY PO Last administered on 01/07/20 09:30; Start 01/06/20 at 12:00 Baclofen (Lioresal) 20 mg TID PO Last administered on 01/07/20 22:34; Start 01/06/20 at 14:00 Vitamin D (Vitamin D3) 5,000 unit DAILY PO Last administered on 01/07/20 09:31; Start 01/06/20 at 12:00 Pantoprazole Sodium (Protonix) 40 mg DAILYAC PO Last administered on 01/07/20 09:30; Start 01/06/20 at 11:30 Fish Oil (Fish Oil) 1,000 mg DAILY PO Last administered on 01/07/20 09:31; Start 01/06/20 at 12:00 Vitamin A 10,000 unit DAILY PO Last administered on 01/07/20 09:31; Start 01/06/20 at 12:00 Vitamin A/Vitamin D (Vitamin A & D Ointment) 1 leida BID TP Last administered on 01/07/20 22:37; Start 01/06/20 at 21:00 Active Scripts Active Reported D3-50 (Cholecalciferol (Vitamin D3)) 50,000 Unit Capsule 125 Mcg PO DAILY Fish Oil 1,000 Mg Softgel ([place]-3/Dha/Epa/Fish Oil) 1 Each Capsule 1 Each PO DAILY Furosemide 40 Mg Tablet 40 Mg PO DAILY Nexium Capsule (Esomeprazole Magnesium) 40 Mg Capsule.dr 40 Mg PO DAILYAC Vitamin A 8,000 Unit Capsule 2,400 Mcg PO DAILY Myrbetriq (Mirabegron) 25 Mg Tab.er.24h 25 Mg PO DAILY Dalfampridine ER (Dalfampridine) 10 Mg Tab.er.12h 10 Mg PO Q12HR Baclofen 20 Mg Tablet 1 Tab PO TID Tamsulosin Hcl 0.4 Mg Cap.er.24h 2 Cap PO DAILY Vitals/I & O Vital Sign - Last 24 Hours 01/07/20 01/07/20 01/07/20 01/07/20 11:35 15:00 19:15 20:00 Temp 98.7 100.8 99.9 98.7 100.8 99.9 Pulse 79 79 97 Resp 20 22 16 B/P (MAP) 153/75 (101) 115/76 (89) 110/68 (82) Pulse Ox 98 96 98 O2 Delivery Room Air Room Air Room Air Room Air 01/07/20 01/08/20 22:53 03:59 Temp 99.1 99.6 99.1 99.6 Pulse 83 91 Resp 16 16 B/P (MAP) 119/69 (86) 118/69 (85) Pulse Ox 96 95 O2 Delivery Room Air Room Air Intake and Output 01/07/20 01/07/20 01/08/20 15:00 23:00 07:00 Intake Total 1050 ml 200 ml 100 ml Output Total 800 ml 1300 ml 1300 ml Balance 250 ml -1100 ml -1200 ml Justicifation of Admission Dx: Justifications for Admission: Justification of Admission Dx: Yes RADHA MUNOZ MD Jan 08, 2020 08:35
[2020-01-08] MEDS: VITAMIN A 10,000 UNIT CAPSULE. PO SCH (08:37)
[2020-01-08] MEDS: BACLOFEN 10 MG TABLET. PO SCH ×3 (08:37→20:17)
[2020-01-08] MEDS: TAMSULOSIN 0.4 MG CAP.ER.24H. PO SCH (08:38)
[2020-01-08] MEDS: PANTOPRAZOLE 40 MG TABLET.DR. PO SCH (08:38)
[2020-01-08] MEDS: FUROSEMIDE 40 MG TABLET. PO SCH (08:38)
[2020-01-08] MEDS: CHOLECALCIFEROL (VITAMIN D3) 5,000 UNIT CAPSULE PO SCH (08:38)
[2020-01-08] MEDS: OMEGA-3 FATTY ACIDS/FISH OIL 1,000 MG CAPSULE. PO SCH (08:38)
[2020-01-08] MEDS: ENOXAPARIN 40 MG/0.4 ML SYRINGE. SQ SCH ×2 (08:43→20:17)
[2020-01-08] MEDS: VITS A & D/LANOLIN TOPICAL OINTMENT 42GM TUBE. TP SCH ×2 (08:45→20:13)
[2020-01-08] MEDS: AMOXICILLIN/K CLAV 875/125MG TABLET. PO SCH ×2 (09:21→20:17)
[2020-01-08] MEDS: IV NORMAL SALINE 1000ML BAG 1,000 ML IV SCH ×3 (09:22→20:17)
[2020-01-08 10:04] LABS: % BANDS 10 % (0-9); % EOS 5 % (0-5); % LYMPHS 17 % (24-48); % MONOS 10 % (0-10); % SEGS 58 % (35-66)
[2020-01-08 10:05] LABS: PLT ESTIMATE ADEQUATE (ADEQUATE)
--- NOTE | 2020-01-08 10:29 | PDOC ---
CARDIO Progress Notes Date and Time Date of Service 01/08/20 Time of Evaluation 1020 Subjective Subjective: No Chest Pain, No shortness of breath, No Palpitations Vitals Vitals Vital Signs Date Time Temp Pulse Resp B/P (MAP) Pulse Ox O2 Delivery O2 Flow Rate FiO2 01/08/20 07:00 99.7 81 20 118/70 (86) 96 Room Air 99.7 Weight Weight [ ] Input and Output Intake and Output Intake and Output 01/08/20 07:00 Intake Total 1350 ml Output Total 3400 ml Balance -2050 ml Intake Oral 300 ml IV Total 1050 ml Output Urine Total 3400 ml Laboratory Labs Laboratory Tests Test 01/08/20 03:20 White Blood Count 9.1 x10^3/uL (4.0-11.0) Red Blood Count 4.16 x10^6/uL (4.30-5.70) Hemoglobin 11.6 g/dL (13.0-17.5) Hematocrit 34.1 % (39.0-53.0) Mean Corpuscular Volume 82 fL (79-100) Mean Corpuscular Hemoglobin 28 pg (25-35) Mean Corpuscular Hemoglobin Concent 34 g/dL (31-37) Red Cell Distribution Width 14.8 % (11.5-14.5) Platelet Count 191 x10^3/uL (140-400) Neutrophils (%) (Auto) 73 % (31-73) Lymphocytes (%) (Auto) 11 % (24-48) Monocytes (%) (Auto) 9 % (0-9) Eosinophils (%) (Auto) 7 % (0-3) Basophils (%) (Auto) 0 % (0-3) Neutrophils # (Auto) 6.6 x10^3/uL (1.8-7.7) Lymphocytes # (Auto) 1.0 x10^3/uL (1.0-4.8) Monocytes # (Auto) 0.8 x10^3/uL (0.0-1.1) Eosinophils # (Auto) 0.6 x10^3/uL (0.0-0.7) Basophils # (Auto) 0.0 x10^3/uL (0.0-0.2) Segmented Neutrophils % 58 % (35-66) Band Neutrophils % 10 % (0-9) Lymphocytes % 17 % (24-48) Monocytes % 10 % (0-10) Eosinophils % 5 % (0-5) Platelet Estimate Adequate (ADEQUATE) Sodium Level 140 mmol/L (136-145) Potassium Level 3.7 mmol/L (3.5-5.1) Chloride Level 106 mmol/L (98-107) Carbon Dioxide Level 26 mmol/L (21-32) Anion Gap 8 (6-14) Blood Urea Nitrogen 11 mg/dL (8-26) Creatinine 0.7 mg/dL (0.7-1.3) Estimated GFR (Cockcroft-Gault) 151.1 Glucose Level 98 mg/dL (70-99) Calcium Level 8.3 mg/dL (8.5-10.1) Microbiology Micro Microbiology 01/05/20 Blood Culture - Preliminary, Resulted NO GROWTH AFTER 2 DAYS 01/04/20 Urine Culture - Final, Complete Physical Exam HEENT: Neck Supple W Full Motion Chest: Symmetric LUNGS: Clear to Auscultation Heart: S1S2, RRR (SR) Abdomen: Soft N/T, Other (obese) Extremities: No Calf Tenderness, Other (1+ bilateral LE edema ) Neurology: alert, oriented, follow commands Assessment Assessment 1. Mechanical fall with severe rhabdomyolysis: reported being on the floor after a fall from to Monday. No syncopal spells and so far no arrhythmias. 2. Hx of MS/spinal stenosis 3. Severe rhabdomyolysis: trending down 4. NSTEMI: peaked trop at 0.8, no cardiac symptoms.No acute EKG changes due to rhabdo/fall. covid neg 5. Transaminitis: per PCP 6. Reactive sinus tachycardia 7. Morbid obesity 8. Hyperlipidemia; LDL 130 9. Fever/UTI: per ID Recommendations Echo today to assess LV systolic function Ongoing hydration; monitor CK Consider for outpt stress test given risk factors. Supportive care Justicifation of Admission Dx: Justifications for Admission: Justification of Admission Dx: Yes BRIAN GONZALEZ APRN Jan 08, 2020 10:29
[2020-01-08 11:00] VITALS: BP 113/68
[2020-01-08 15:00] VITALS: BP 115/68
[2020-01-08] MEDS: ACETAMINOPHEN 325 MG TABLET. PO PRN (17:43)
[2020-01-08 19:40] VITALS: BP 108/60
[2020-01-08] MEDS: LORazepam 0.5 MG TABLET PO PRN (20:17)
[2020-01-08 22:45] VITALS: BP 113/62
[2020-01-09] MEDS: IV NORMAL SALINE 1000ML BAG 1,000 ML IV SCH ×5 (01:47→22:09)
[2020-01-09 03:35] VITALS: BP 121/71
[2020-01-09 07:00] VITALS: BP 115/68
[2020-01-09 07:50] LABS: BASO % 1 % (0-3); EOS # 0.6 x10^3/uL (0.0-0.7); EOS % 6 % (0-3); HEMATOCRIT 32.3 % (39.0-53.0); LYMPH % 11 % (24-48); MEAN CORPUSCULAR HEMOGLOBIN 28 pg (25-35); MEAN CORPUSCULAR HGB CONC 34 g/dL (31-37); MEAN CORPUSCULAR VOLUME 81 fL (79-100); MONO # 0.8 x10^3/uL (0.0-1.1); MONO % 9 % (0-9); NEUT # 6.9 x10^3/uL (1.8-7.7); NEUT % 74 % (31-73); PLATELET COUNT 233 x10^3/uL (140-400); RED BLOOD COUNT 3.96 x10^6/uL (4.30-5.70); WHITE BLOOD COUNT 9.4 x10^3/uL (4.0-11.0)
[2020-01-09 08:04] LABS: CALCIUM 8.8 mg/dL (8.5-10.1); CREATININE 0.7 mg/dL (0.7-1.3); GFR 151.1; POTASSIUM 3.6 mmol/L (3.5-5.1)
[2020-01-09 08:28] LABS: ALBUMIN 2.1 g/dL (3.4-5.0); DIRECT BILIRUBIN 0.1 mg/dL (0.0-0.2); TOTAL BILIRUBIN 0.3 mg/dL (0.2-1.0); TOTAL PROTEIN 5.2 g/dL (6.4-8.2)
--- NOTE | 2020-01-09 08:29 | PDOC ---
Infectious Disease Note Subjective Subjective feeling better, though had fever ROS ROS no n/v/d/or pain Vital Sign Vital Signs Vital Signs Date Time Temp Pulse Resp B/P (MAP) Pulse Ox O2 Delivery O2 Flow Rate FiO2 01/09/20 07:50 Room Air 01/09/20 03:35 98.9 81 16 121/71 (88) 98 98.9 Physical Exam PHYSICAL EXAM GENERAL: Alert, oriented gentleman, not in distress. VITAL SIGNS: Stable HEENT: Both pupils are round and reacting. No conjunctival lesion. No lesion in mouth. NECK: Supple, no JVP, no lymphadenopathy. LUNGS: Clear. HEART: S1, S2 regular. ABDOMEN: Soft, nontender, no organomegaly. EXTREMITIES: No edema, cyanosis. SKIN: Unremarkable. NEUROLOGIC: The patient is alert, awake and appropriate. He does move all the extremities, but coordination is a problem and weakness is there. Labs Lab Laboratory Tests Test 01/09/20 06:35 White Blood Count 9.4 x10^3/uL (4.0-11.0) Red Blood Count 3.96 x10^6/uL (4.30-5.70) Hemoglobin 11.0 g/dL (13.0-17.5) Hematocrit 32.3 % (39.0-53.0) Mean Corpuscular Volume 81 fL (79-100) Mean Corpuscular Hemoglobin 28 pg (25-35) Mean Corpuscular Hemoglobin Concent 34 g/dL (31-37) Red Cell Distribution Width 15.0 % (11.5-14.5) Platelet Count 233 x10^3/uL (140-400) Neutrophils (%) (Auto) 74 % (31-73) Lymphocytes (%) (Auto) 11 % (24-48) Monocytes (%) (Auto) 9 % (0-9) Eosinophils (%) (Auto) 6 % (0-3) Basophils (%) (Auto) 1 % (0-3) Neutrophils # (Auto) 6.9 x10^3/uL (1.8-7.7) Lymphocytes # (Auto) 1.0 x10^3/uL (1.0-4.8) Monocytes # (Auto) 0.8 x10^3/uL (0.0-1.1) Eosinophils # (Auto) 0.6 x10^3/uL (0.0-0.7) Basophils # (Auto) 0.0 x10^3/uL (0.0-0.2) Sodium Level 139 mmol/L (136-145) Potassium Level 3.6 mmol/L (3.5-5.1) Chloride Level 106 mmol/L (98-107) Carbon Dioxide Level 26 mmol/L (21-32) Anion Gap 7 (6-14) Blood Urea Nitrogen 10 mg/dL (8-26) Creatinine 0.7 mg/dL (0.7-1.3) Estimated GFR (Cockcroft-Gault) 151.1 Glucose Level 101 mg/dL (70-99) Calcium Level 8.8 mg/dL (8.5-10.1) Micro Microbiology 01/05/20 Blood Culture - Preliminary, Resulted NO GROWTH AFTER 1 DAY 01/04/20 Urine Culture - Final, Complete Objective Assessment IMPRESSION: 1. Severe weakness. 2. Rhabdomyolysis. 3. Fever. 4. Complicated urinary tract infection. 5. Multiple sclerosis. 6 BC coag neg staph, two species, contaminant Plan Plan of Care covid neg urine culture neg change zosyn to po augmentin ok to d/c to Rehab ct chest ,abd and pelvis repeat YUDY CARBONE MD Jan 09, 2020 08:29
[2020-01-09] MEDS ORDERED: IOHEXOL 300 MG/ML 100ML VIAL. IV ONE (08:45)
[2020-01-09] MEDS ORDERED: IOHEXOL 240 MG/ML 50ML VIAL. PO ONE (08:45)
[2020-01-09] MEDS: BACLOFEN 10 MG TABLET. PO SCH ×3 (08:54→22:08)
[2020-01-09] MEDS: CHOLECALCIFEROL (VITAMIN D3) 5,000 UNIT CAPSULE PO SCH (08:54)
[2020-01-09] MEDS: TAMSULOSIN 0.4 MG CAP.ER.24H. PO SCH (08:54)
[2020-01-09] MEDS: AMOXICILLIN/K CLAV 875/125MG TABLET. PO SCH ×2 (08:54→22:08)
[2020-01-09] MEDS: VITAMIN A 10,000 UNIT CAPSULE. PO SCH (08:54)
[2020-01-09] MEDS: FUROSEMIDE 40 MG TABLET. PO SCH (08:55)
[2020-01-09] MEDS: OMEGA-3 FATTY ACIDS/FISH OIL 1,000 MG CAPSULE. PO SCH (08:55)
[2020-01-09] MEDS: PANTOPRAZOLE 40 MG TABLET.DR. PO SCH (08:55)
[2020-01-09] MEDS: ACETAMINOPHEN 325 MG TABLET. PO PRN (08:55)
[2020-01-09] MEDS: ENOXAPARIN 40 MG/0.4 ML SYRINGE. SQ SCH ×2 (08:56→22:09)
[2020-01-09] MEDS: VITS A & D/LANOLIN TOPICAL OINTMENT 42GM TUBE. TP SCH ×2 (09:00→22:09)
--- NOTE | 2020-01-09 09:11 | PDOC ---
[employer] PROGRESS NOTE Date of Service DOS: DATE: 01/09/20 TIME: 09:11 Chief Complaint Chief Complaint Fever Severe weakness. Rhabdomyolysis. Complicated urinary tract infection. Multiple sclerosis. Morbid obesity NSTEMI - trop 0.8 Transaminitis - 2/2 rhabdo Urinary retention - straight cath 3x daily History of Present Illness History of Present Illness Mr Samuels is a 39-year-old M w/ PMHx multiple sclerosis in 2011, he follows with Dr. Pedroza at , and is on a study medication of monthly injections for his multiple sclerosis. He's admitted with generalized weakness and found to have urinary tract infection. 01/07: Patient reports slight improvement in his weakness, working with physical therapy. His COVID-19 is negative. Discussed etiology of his MS flare might be secondary to acute infection. Echocardiogram pending. final urine culture with NGTD Febrile overnight. No reduction in EF on echo. A bit short of breath and some RLE swelling. CT chest/abd/pelvis with no acute abnormalities. Still pretty weak, but able to work with therapy. Vitals/I&O Vitals/I&O: Vital Signs Date Time Temp Pulse Resp B/P (MAP) Pulse Ox O2 Delivery O2 Flow Rate FiO2 01/09/20 07:50 Room Air 01/09/20 07:00 98.3 68 20 115/68 (84) 98 98.3 I & O 01/08/20 01/08/20 01/09/20 15:00 23:00 07:00 Intake Total 520 ml 500 ml 2500 ml Output Total 1600 ml 1200 ml 1850 ml Balance -1080 ml -700 ml 650 ml Physical Exam Physical Exam: GENERAL: Alert, oriented gentleman, not in distress. VITAL SIGNS: Stable HEENT: Both pupils are round and reacting. No conjunctival lesion. No lesion in mouth. NECK: Supple, no JVP, no lymphadenopathy. LUNGS: Clear. HEART: S1, S2 regular. ABDOMEN: Soft, nontender, no organomegaly. EXTREMITIES: No edema, cyanosis. SKIN: Unremarkable. NEUROLOGIC: The patient is alert, awake and appropriate. He does move all the extremities, but coordination is a problem and weakness is there. General: Alert, Oriented X3, Cooperative Heart: Regular rate Lungs: Other (Normal work of breathing, breathing comfortably on room air) Abdomen: Normal bowel sounds Extremities: No cyanosis Skin: No rashes, No significant lesion Labs Labs: Laboratory Tests Test 01/09/20 06:35 White Blood Count 9.4 x10^3/uL (4.0-11.0) Red Blood Count 3.96 x10^6/uL (4.30-5.70) Hemoglobin 11.0 g/dL (13.0-17.5) Hematocrit 32.3 % (39.0-53.0) Mean Corpuscular Volume 81 fL (79-100) Mean Corpuscular Hemoglobin 28 pg (25-35) Mean Corpuscular Hemoglobin Concent 34 g/dL (31-37) Red Cell Distribution Width 15.0 % (11.5-14.5) Platelet Count 233 x10^3/uL (140-400) Neutrophils (%) (Auto) 74 % (31-73) Lymphocytes (%) (Auto) 11 % (24-48) Monocytes (%) (Auto) 9 % (0-9) Eosinophils (%) (Auto) 6 % (0-3) Basophils (%) (Auto) 1 % (0-3) Neutrophils # (Auto) 6.9 x10^3/uL (1.8-7.7) Lymphocytes # (Auto) 1.0 x10^3/uL (1.0-4.8) Monocytes # (Auto) 0.8 x10^3/uL (0.0-1.1) Eosinophils # (Auto) 0.6 x10^3/uL (0.0-0.7) Basophils # (Auto) 0.0 x10^3/uL (0.0-0.2) Sodium Level 139 mmol/L (136-145) Potassium Level 3.6 mmol/L (3.5-5.1) Chloride Level 106 mmol/L (98-107) Carbon Dioxide Level 26 mmol/L (21-32) Anion Gap 7 (6-14) Blood Urea Nitrogen 10 mg/dL (8-26) Creatinine 0.7 mg/dL (0.7-1.3) Estimated GFR (Cockcroft-Gault) 151.1 Glucose Level 101 mg/dL (70-99) Calcium Level 8.8 mg/dL (8.5-10.1) Total Bilirubin 0.3 mg/dL (0.2-1.0) Direct Bilirubin 0.1 mg/dL (0.0-0.2) Aspartate Amino Transf (AST/SGOT) 276 U/L (15-37) Alanine Aminotransferase (ALT/SGPT) 125 U/L (16-63) Alkaline Phosphatase 58 U/L (46-116) Creatine Kinase 88449 U/L (39-308) Total Protein 5.2 g/dL (6.4-8.2) Albumin 2.1 g/dL (3.4-5.0) Assessment and Plan Assessmemt and Plan Problems Medical Problems: (1) Fever Status: Acute (2) Generalized weakness Status: Acute (3) Non-ST elevation [place] (NSTEMI) Status: Acute (4) Person under investigation for COVID-19 Status: Acute Comment Review of Relevant I have reviewed the following items khushi (where applicable) has been applied. Justifications for Admission Other Justification JOSEPH NAZARIO MD Jan 09, 2020 09:11
[2020-01-09 11:00] VITALS: BP 124/47
--- NOTE | 2020-01-09 12:18 | PDOC ---
BRIAN GONZALEZ ONCOLOGY PHYSICIAN 01/09/20 1218: CARDIO Progress Notes Date and Time Date of Service 01/09/20 Time of Evaluation 1210 Subjective Subjective: No Chest Pain, No shortness of breath, No Palpitations Vitals Vitals Vital Signs Date Time Temp Pulse Resp B/P (MAP) Pulse Ox O2 Delivery O2 Flow Rate FiO2 01/09/20 07:50 Room Air 01/09/20 07:00 98.3 68 20 115/68 (84) 98 98.3 Weight Weight [ ] Input and Output Intake and Output Intake and Output 01/09/20 07:00 Intake Total 3520 ml Output Total 4650 ml Balance -1130 ml Intake Oral 1120 ml Other 2400 ml Output Urine Total 4650 ml Laboratory Labs Laboratory Tests Test 01/09/20 06:35 White Blood Count 9.4 x10^3/uL (4.0-11.0) Red Blood Count 3.96 x10^6/uL (4.30-5.70) Hemoglobin 11.0 g/dL (13.0-17.5) Hematocrit 32.3 % (39.0-53.0) Mean Corpuscular Volume 81 fL (79-100) Mean Corpuscular Hemoglobin 28 pg (25-35) Mean Corpuscular Hemoglobin Concent 34 g/dL (31-37) Red Cell Distribution Width 15.0 % (11.5-14.5) Platelet Count 233 x10^3/uL (140-400) Neutrophils (%) (Auto) 74 % (31-73) Lymphocytes (%) (Auto) 11 % (24-48) Monocytes (%) (Auto) 9 % (0-9) Eosinophils (%) (Auto) 6 % (0-3) Basophils (%) (Auto) 1 % (0-3) Neutrophils # (Auto) 6.9 x10^3/uL (1.8-7.7) Lymphocytes # (Auto) 1.0 x10^3/uL (1.0-4.8) Monocytes # (Auto) 0.8 x10^3/uL (0.0-1.1) Eosinophils # (Auto) 0.6 x10^3/uL (0.0-0.7) Basophils # (Auto) 0.0 x10^3/uL (0.0-0.2) Sodium Level 139 mmol/L (136-145) Potassium Level 3.6 mmol/L (3.5-5.1) Chloride Level 106 mmol/L (98-107) Carbon Dioxide Level 26 mmol/L (21-32) Anion Gap 7 (6-14) Blood Urea Nitrogen 10 mg/dL (8-26) Creatinine 0.7 mg/dL (0.7-1.3) Estimated GFR (Cockcroft-Gault) 151.1 Glucose Level 101 mg/dL (70-99) Calcium Level 8.8 mg/dL (8.5-10.1) Total Bilirubin 0.3 mg/dL (0.2-1.0) Direct Bilirubin 0.1 mg/dL (0.0-0.2) Aspartate Amino Transf (AST/SGOT) 276 U/L (15-37) Alanine Aminotransferase (ALT/SGPT) 125 U/L (16-63) Alkaline Phosphatase 58 U/L (46-116) Creatine Kinase 44353 U/L (39-308) Total Protein 5.2 g/dL (6.4-8.2) Albumin 2.1 g/dL (3.4-5.0) Microbiology Micro Microbiology 01/05/20 Blood Culture - Preliminary, Resulted NO GROWTH AFTER 3 DAYS 01/04/20 Urine Culture - Final, Complete Physical Exam HEENT: Neck Supple W Full Motion Chest: Symmetric LUNGS: Clear to Auscultation Heart: S1S2, RRR (SR) Abdomen: Soft N/T, Other (obese) Extremities: No Calf Tenderness, Other (1+ bilateral LE edema ) Neurology: alert, oriented, follow commands Assessment Assessment 1. Mechanical fall with severe rhabdomyolysis: reported being on the floor after a fall from to Monday. No syncopal spells and so far no arrhythmias. 2. Hx of MS/spinal stenosis 3. Severe rhabdomyolysis: trending downward 4. NSTEMI: peaked trop at 0.8, no cardiac symptoms.No acute EKG changes due to rhabdo/fall. covid neg 5. Transaminitis: improving per PCP 6. Reactive sinus tachycardia 7. Morbid obesity 8. Hyperlipidemia; LDL 130 9. Fever/UTI: per ID Recommendations Echo today to assess LV systolic function Ongoing hydration; monitor CK Consider for outpt stress test given risk factors. Okay to discharge to rehab from a CV standpoint Supportive care Justicifation of Admission Dx: Justifications for Admission: Justification of Admission Dx: Yes ESTELLA RUIZ MD 01/09/20 1813: CARDIO Progress Notes Assessment Assessment Patient seen and evaluated 1. Mechanical fall with severe rhabdomyolysis: Improving. Rhythm stable on monitoring. 2. Hx of MS/spinal stenosis 3. Severe rhabdomyolysis: Continues to improve. 4. NSTEMI: peaked trop at 0.8, no cardiac symptoms.No acute EKG changes. Echo p ending. 5. Reactive sinus tachycardia 6. Hyperlipidemia BRIAN GONZALEZ APRN Jan 09, 2020 12:18 ESTELLA RUIZ MD Jan 09, 2020 18:13
--- NOTE | 2020-01-09 13:13 | PDOC ---
PROGRESS NOTES Date of Service DATE: 01/09/20 TIME: 13:11 Assessment Problems Medical Problems: (1) Fever Status: Acute (2) Generalized weakness Status: Acute (3) Non-ST elevation OK (NSTEMI) Status: Acute (4) Person under investigation for COVID-19 Status: Acute Multiple sclerosis, suspect pseudo-exacerbation from infection. Lumbar spinal stenosis Cervical spondylosis on the MRI from 2 years ago Urinary tract infection Suspect non-STEMI Rhabdomyolysis COVID negative Plan Treat UTI Rehabilitation modalities, awaiting transfer to [facility] rehab Hold on steroids Cardiology and ID following. 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 Oriented to time, place and person. PERRL. EOMI. left exotropia intermittently CN: no focal findings. Muscle tone: normal. Muscle strength: 5-/5 strength in arms, 4/5 left leg, 3/5 right leg, with normal tone and bulk. DTR: 2+ Plantar reflex: flexor Gait: not examined in bed. Sensory exam: no abnormal findings. No cerebellar signs elicited. Review of Relevant I have reviewed the following items khushi (where applicable) has been applied. Labs Laboratory Tests Test 01/08/20 03:20 01/09/20 06:35 White Blood Count 9.1 x10^3/uL (4.0-11.0) 9.4 x10^3/uL (4.0-11.0) Red Blood Count 4.16 x10^6/uL (4.30-5.70) 3.96 x10^6/uL (4.30-5.70) Hemoglobin 11.6 g/dL (13.0-17.5) 11.0 g/dL (13.0-17.5) Hematocrit 34.1 % (39.0-53.0) 32.3 % (39.0-53.0) Mean Corpuscular Volume 82 fL (79-100) 81 fL (79-100) Mean Corpuscular Hemoglobin 28 pg (25-35) 28 pg (25-35) Mean Corpuscular Hemoglobin Concent 34 g/dL (31-37) 34 g/dL (31-37) Red Cell Distribution Width 14.8 % (11.5-14.5) 15.0 % (11.5-14.5) Platelet Count 191 x10^3/uL (140-400) 233 x10^3/uL (140-400) Neutrophils (%) (Auto) 73 % (31-73) 74 % (31-73) Lymphocytes (%) (Auto) 11 % (24-48) 11 % (24-48) Monocytes (%) (Auto) 9 % (0-9) 9 % (0-9) Eosinophils (%) (Auto) 7 % (0-3) 6 % (0-3) Basophils (%) (Auto) 0 % (0-3) 1 % (0-3) Neutrophils # (Auto) 6.6 x10^3/uL (1.8-7.7) 6.9 x10^3/uL (1.8-7.7) Lymphocytes # (Auto) 1.0 x10^3/uL (1.0-4.8) 1.0 x10^3/uL (1.0-4.8) Monocytes # (Auto) 0.8 x10^3/uL (0.0-1.1) 0.8 x10^3/uL (0.0-1.1) Eosinophils # (Auto) 0.6 x10^3/uL (0.0-0.7) 0.6 x10^3/uL (0.0-0.7) Basophils # (Auto) 0.0 x10^3/uL (0.0-0.2) 0.0 x10^3/uL (0.0-0.2) Segmented Neutrophils % 58 % (35-66) Band Neutrophils % 10 % (0-9) Lymphocytes % 17 % (24-48) Monocytes % 10 % (0-10) Eosinophils % 5 % (0-5) Platelet Estimate Adequate (ADEQUATE) Sodium Level 140 mmol/L (136-145) 139 mmol/L (136-145) Potassium Level 3.7 mmol/L (3.5-5.1) 3.6 mmol/L (3.5-5.1) Chloride Level 106 mmol/L (98-107) 106 mmol/L (98-107) Carbon Dioxide Level 26 mmol/L (21-32) 26 mmol/L (21-32) Anion Gap 8 (6-14) 7 (6-14) Blood Urea Nitrogen 11 mg/dL (8-26) 10 mg/dL (8-26) Creatinine 0.7 mg/dL (0.7-1.3) 0.7 mg/dL (0.7-1.3) Estimated GFR (Cockcroft-Gault) 151.1 151.1 Glucose Level 98 mg/dL (70-99) 101 mg/dL (70-99) Calcium Level 8.3 mg/dL (8.5-10.1) 8.8 mg/dL (8.5-10.1) Total Bilirubin 0.3 mg/dL (0.2-1.0) Direct Bilirubin 0.1 mg/dL (0.0-0.2) Aspartate Amino Transf (AST/SGOT) 276 U/L (15-37) Alanine Aminotransferase (ALT/SGPT) 125 U/L (16-63) Alkaline Phosphatase 58 U/L (46-116) Creatine Kinase 93302 U/L (39-308) Total Protein 5.2 g/dL (6.4-8.2) Albumin 2.1 g/dL (3.4-5.0) Laboratory Tests Test 01/09/20 06:35 White Blood Count 9.4 x10^3/uL (4.0-11.0) Red Blood Count 3.96 x10^6/uL (4.30-5.70) Hemoglobin 11.0 g/dL (13.0-17.5) Hematocrit 32.3 % (39.0-53.0) Mean Corpuscular Volume 81 fL (79-100) Mean Corpuscular Hemoglobin 28 pg (25-35) Mean Corpuscular Hemoglobin Concent 34 g/dL (31-37) Red Cell Distribution Width 15.0 % (11.5-14.5) Platelet Count 233 x10^3/uL (140-400) Neutrophils (%) (Auto) 74 % (31-73) Lymphocytes (%) (Auto) 11 % (24-48) Monocytes (%) (Auto) 9 % (0-9) Eosinophils (%) (Auto) 6 % (0-3) Basophils (%) (Auto) 1 % (0-3) Neutrophils # (Auto) 6.9 x10^3/uL (1.8-7.7) Lymphocytes # (Auto) 1.0 x10^3/uL (1.0-4.8) Monocytes # (Auto) 0.8 x10^3/uL (0.0-1.1) Eosinophils # (Auto) 0.6 x10^3/uL (0.0-0.7) Basophils # (Auto) 0.0 x10^3/uL (0.0-0.2) Sodium Level 139 mmol/L (136-145) Potassium Level 3.6 mmol/L (3.5-5.1) Chloride Level 106 mmol/L (98-107) Carbon Dioxide Level 26 mmol/L (21-32) Anion Gap 7 (6-14) Blood Urea Nitrogen 10 mg/dL (8-26) Creatinine 0.7 mg/dL (0.7-1.3) Estimated GFR (Cockcroft-Gault) 151.1 Glucose Level 101 mg/dL (70-99) Calcium Level 8.8 mg/dL (8.5-10.1) Total Bilirubin 0.3 mg/dL (0.2-1.0) Direct Bilirubin 0.1 mg/dL (0.0-0.2) Aspartate Amino Transf (AST/SGOT) 276 U/L (15-37) Alanine Aminotransferase (ALT/SGPT) 125 U/L (16-63) Alkaline Phosphatase 58 U/L (46-116) Creatine Kinase 68731 U/L (39-308) Total Protein 5.2 g/dL (6.4-8.2) Albumin 2.1 g/dL (3.4-5.0) Microbiology 01/05/20 Blood Culture - Preliminary, Resulted NO GROWTH AFTER 3 DAYS 01/04/20 Urine Culture - Final, Complete Medications Current Medications Sodium Chloride 2,400 ml @ 2,400 mls/hr Q1H IV Last administered on 01/04/20at 21:04; Start 01/04/20 at 18:35; Stop 01/05/20 at 01:45; Status DC Acetaminophen (Tylenol) 1,000 mg 1X ONCE PO Last administered on 01/04/20at 18:49; Start 01/04/20 at 18:45; Stop 01/04/20 at 18:46; Status DC Azithromycin 250 ml @ 250 mls/hr 1X ONCE IV Last administered on 01/04/20at 21:05; Start 01/04/20 at 20:30; Stop 01/04/20 at 21:29; Status DC Ceftriaxone Sodium (Rocephin) 1 gm 1X ONCE IVP Last administered on 01/04/20at 21:05; Start 01/04/20 at 20:30; Stop 01/04/20 at 20:31; Status DC Aspirin (Aruora Aspirin) 325 mg 1X ONCE PO Last administered on 01/04/20at 21:04; Start 01/04/20 at 20:30; Stop 01/04/20 at 20:31; Status DC Enoxaparin Sodium (Lovenox Per Pharmacy Treatment Dosing) 1 each 1X STAT MC ; Start 01/04/20 at 20:28; Stop 01/04/20 at 20:31; Status DC Enoxaparin Sodium (Lovenox 150mg Syringe) 150 mg 1X ONCE SQ Last administered on 01/04/20at 21:04; Start 01/04/20 at 20:45; Stop 01/04/20 at 20:46; Status DC Ondansetron HCl (Zofran) 4 mg PRN Q8HRS PRN IV NAUSEA/VOMITING; Start 01/04/20 at 20:45; Stop 01/04/20 at 22:51; Status DC Morphine Sulfate (Morphine Sulfate) 4 mg PRN Q2HR PRN IV PAIN; Start 01/04/20 at 20:45; Stop 01/05/20 at 20:44; Status DC Acetaminophen (Tylenol) 650 mg PRN Q4HRS PRN PO FEVER > 100.3'F; Start 01/04/20 at 20:45; Stop 01/04/20 at 22:51; Status DC Sodium Chloride (Normal Saline Flush) 3 ml QSHIFT PRN IV AFTER MEDS AND BLOOD DRAWS; Start 01/04/20 at 22:45 Sodium Chloride 1,000 ml @ 100 mls/hr Q10H IV Last administered on 01/05/20at 18:12; Start 01/04/20 at 22:39; Stop 01/06/20 at 15:44; Status DC Ondansetron HCl (Zofran) 4 mg PRN Q4HRS PRN IV NAUSEA/VOMITING 1ST CHOICE; Start 01/04/20 at 22:45 Acetaminophen (Tylenol) 650 mg PRN Q4HRS PRN PO TEMP OVER 100.4F OR MILD PAIN Last administered on 01/09/20at 08:55; Start 01/04/20 at 22:45 Acetaminophen (Tylenol Supp) 650 mg PRN Q4HRS PRN IA TEMP OVER 100.4F OR MILD PAIN; Start 01/04/20 at 22:45 Al Hydroxide/Mg Hydroxide (Mylanta Plus Xs) 30 ml PRN DAILY PRN PO HEARTBURN / GAS; Start 01/04/20 at 22:45 Clonidine HCl (Catapres) 0.1 mg PRN Q6HRS PRN PO SBP>160 OR DBP>90; Start 01/04/20 at 22:45 Sodium Monofluorophosphate (Fleet Adult) 133 ml PRN DAILY PRN IA CONSTIPATION 1ST CHOICE; Start 01/04/20 at 22:45; Stop 01/08/20 at 11:23; Status DC Docusate Sodium (Colace) 100 mg PRN BID PRN PO HARD STOOLS; Start 01/04/20 at 22:45 Albuterol Sulfate (Ventolin Neb Soln) 2.5 mg PRN Q4HRS PRN NEB SHORTNESS OF BREATH; Start 01/04/20 at 22:45 Guaifenesin (Robitussin) 200 mg PRN Q4HRS PRN PO COUGH; Start 01/04/20 at 22:45 Lorazepam (Ativan) 0.5 mg PRN Q4HRS PRN PO ANXIETY / AGITATION Last administered on 01/08/20at 20:17; Start 01/04/20 at 22:45 Enoxaparin Sodium (Lovenox 40mg Syringe) 40 mg BID SQ Last administered on 01/09/20at 08:56; Start 01/04/20 at 22:45 Ceftriaxone Sodium (Rocephin) 1 gm Q24H IVP ; Start 01/05/20 at 20:00; Stop 01/05/20 at 13:40; Status DC Piperacillin Sod/ Tazobactam Sod 3.375 gm/Sodium Chloride 50 ml @ 100 mls/hr Q6HRS IV Last administered on 01/07/20at 22:38; Start 01/05/20 at 18:00; Stop 01/08/20 at 08:40; Status DC Lactobacillus Rhamnosus (Culturelle) 1 cap BID PO Last administered on 01/06/20at 08:56; Start 01/05/20 at 21:00; Stop 01/06/20 at 14:43; Status DC Daptomycin 650 mg/ Sodium Chloride 50 ml @ 100 mls/hr 1X ONCE IV Last administered on 01/05/20at 19:54; Start 01/05/20 at 19:30; Stop 01/05/20 at 19:59; Status DC Sodium Chloride 2,250 ml @ 2,250 mls/hr Q1H IV Last administered on 01/06/20at 04:15; Start 01/05/20 at 20:21; Stop 01/06/20 at 14:41; Status DC Sodium Chloride 500 ml @ 1,000 mls/hr PRN Q30MIN PRN IV SEE COMMENTS; Start 01/05/20 at 20:30 Sodium Chloride 1,000 ml @ 200 mls/hr Q5H IV Last administered on 01/09/20at 11:15; Start 01/05/20 at 22:00 Furosemide (Lasix) 40 mg DAILY PO Last administered on 01/09/20at 08:55; Start 01/06/20 at 12:00 Tamsulosin HCl (Flomax) 0.8 mg DAILY PO Last administered on 01/09/20at 08:54; Start 01/06/20 at 12:00 Baclofen (Lioresal) 20 mg TID PO Last administered on 01/09/20at 08:54; Start 01/06/20 at 14:00 Vitamin D (Vitamin D3) 5,000 unit DAILY PO Last administered on 01/09/20at 08:54; Start 01/06/20 at 12:00 Pantoprazole Sodium (Protonix) 40 mg DAILYAC PO Last administered on 01/09/20at 08:55; Start 01/06/20 at 11:30 Fish Oil (Fish Oil) 1,000 mg DAILY PO Last administered on 01/09/20at 08:55; Start 01/06/20 at 12:00 Vitamin A 10,000 unit DAILY PO Last administered on 01/09/20at 08:54; Start 01/06/20 at 12:00 Vitamin A/Vitamin D (Vitamin A & D Ointment) 1 leida BID TP Last administered on 01/08/20at 20:13; Start 01/06/20 at 21:00 Amoxicillin/ Clavulanate Potassium (Augmentin 875/ 125mg) 1 tab BID PO Last ad ministered on 01/09/20at 08:54; Start 01/08/20 at 09:00 Iohexol (Omnipaque 240 Mg/ml) 30 ml 1X ONCE PO Last administered on 01/09/20at 08:45; Start 01/09/20 at 08:45; Stop 01/09/20 at 08:51; Status DC Iohexol (Omnipaque 300 Mg/ml) 75 ml 1X ONCE IV Last administered on 01/09/20at 11:22; Start 01/09/20 at 08:45; Stop 01/09/20 at 08:51; Status DC Active Scripts Active Reported D3-50 (Cholecalciferol (Vitamin D3)) 50,000 Unit Capsule 125 Mcg PO DAILY Fish Oil 1,000 Mg Softgel ([place]-3/Dha/Epa/Fish Oil) 1 Each Capsule 1 Each PO DAILY Furosemide 40 Mg Tablet 40 Mg PO DAILY Nexium Capsule (Esomeprazole Magnesium) 40 Mg Capsule.dr 40 Mg PO DAILYAC Vitamin A 8,000 Unit Capsule 2,400 Mcg PO DAILY Myrbetriq (Mirabegron) 25 Mg Tab.er.24h 25 Mg PO DAILY Dalfampridine ER (Dalfampridine) 10 Mg Tab.er.12h 10 Mg PO Q12HR Baclofen 20 Mg Tablet 1 Tab PO TID Tamsulosin Hcl 0.4 Mg Cap.er.24h 2 Cap PO DAILY Vitals/I & O Vital Sign - Last 24 Hours 01/08/20 01/08/20 01/08/20 01/08/20 15:00 19:40 20:00 22:45 Temp 101.6 99.9 99.3 101.6 99.9 99.3 Pulse 77 92 79 Resp 20 16 16 B/P (MAP) 115/68 (84) 108/60 (76) 113/62 (79) Pulse Ox 96 95 97 O2 Delivery Room Air Room Air Room Air Room Air 01/09/20 01/09/20 01/09/20 01/09/20 03:35 07:00 07:50 11:00 Temp 98.9 98.3 98.6 98.9 98.3 98.6 Pulse 81 68 80 Resp B/P (MAP) 121/71 (88) 115/68 (84) 124/47 (72) Pulse Ox 98 98 99 O2 Delivery Room Air Room Air Room Air Room Air Intake and Output 01/08/20 01/08/20 01/09/20 15:00 23:00 07:00 Intake Total 520 ml 500 ml 2500 ml Output Total 1600 ml 1200 ml 1850 ml Balance -1080 ml -700 ml 650 ml Justicifation of Admission Dx: Justifications for Admission: Justification of Admission Dx: Yes RADHA MUNOZ MD Jan 09, 2020 13:13
--- NOTE | 2020-01-09 14:31 | CARD ---
MR#: [id number] Date of Study: 01/09/2020 Ordering Physician: URIEL ESTEVEZ, Referring Physician: URIEL ESTEVEZ, Tech: Evelyn Mike RDCS APPROVED REPORT EXAM: Two-dimensional and M-mode echocardiogram with Doppler and color Doppler. Other Information Quality : Technically Limited Technically limited study due to body habitus and body position INDICATION Congestive Heart Failure 2D DIMENSIONS RVDd2.9 (2.9-3.5cm)Left Atrium(2D)4.3 (1.6-4.0cm) IVSd1.4 (0.7-1.1cm)Aortic Root(2D)3.9 (2.0-3.7cm) LVDd5.5 (3.9-5.9cm)LVOT Diameter2.5 (1.8-2.4cm) PWd1.2 (0.7-1.1cm)LVDs3.6 (2.5-4.0cm) FS (%) 35.3 %SV95.6 ml LVEF(%)60.0 (>50%) Aortic Valve AoV Peak Peter.97.3cm/sAoV VTI16.5cm AO Peak GR.3.8mmHgLVOT VTI 13.62cm AO Mean GR.2mmHgAVA (VTI)4.10cm2 Mitral Valve MV E Tmeagduy41.1cm/sMV DECEL [id number] MV A Cijmpdcg08.8cm/sE/A Ratio1.8 TDI Lateral E' P. V13.32cm/sMedial E' P. V9.33cm/s E/Lateral E'5.6E/Medial E'7.9 Pulmonary Vein S1 Lwfktbvv16.1cm/sS2 Qubxyuuj58.53cm/s D2 Sgldkuoa05.5cm/s LEFT VENTRICLE The left ventricle is normal size. There is mild concentric left ventricular hypertrophy. The left ve ntricular systolic function is normal. The Ejection Fraction is 55-60%. There is normal LV segmental wall motion. The left ventricular diastolic function and filling is normal for age. RIGHT VENTRICLE The right ventricle apex is not well visualized. ATRIA The left atrium is mildly dilated. The right atrium is not well visualized. The interatrial septum is intact with no evidence for an atrial septal defect or patent foramen ovale as noted on 2-D or Doppl er imaging. AORTIC VALVE The aortic valve is normal in structure and function. Doppler and Color Flow revealed no significant aortic regurgitation. There is no significant aortic valvular stenosis. MITRAL VALVE The mitral valve is normal in structure and function. There is no evidence of mitral valve prolapse. There is no mitral valve stenosis. Doppler and Color Flow revealed no mitral valve regurgitation note d. TRICUSPID VALVE The tricuspid valve structure is not well visualized. Doppler and Color Flow revealed no tricuspid va lve regurgitation noted. There is no tricuspid valve stenosis. PULMONIC VALVE The pulmonic valve is not well visualized. Doppler and Color Flow revealed no pulmonic valvular regur gitation. There is no pulmonic valvular stenosis. GREAT VESSELS The aortic root is normal in size. The ascending aorta is normal in size by patient BMI at 3.7 cm. Th e IVC was not visualized. PERICARDIAL EFFUSION There is no evidence of significant pericardial effusion. Critical Notification Critical Value: No <Conclusion> Technically difficult study. The left ventricular systolic function is normal. The Ejection Fraction is 55-60%. There is normal LV segmental wall motion. There is no evidence of significant pericardial effusion. Signed by : Morro Harvey, Electronically Approved : 01/09/2020 14:31:21
[2020-01-09 15:00] VITALS: BP 115/70
--- NOTE | 2020-01-09 15:59 | RAD ---
Right lower extremity venous doppler ultrasound History: Right leg pain and edema Comparison: None Findings: Multiple grayscale, color, and duplex spectral analysis sonographic images were acquired of the right lower extremity veins to evaluate for the presence of DVT. Exam is very limited due to patient's body habitus as well as due to soft tissue edema. There is normal color flow and phasicity of the visualized right lower extremity veins, no thrombus demonstrated. Impression: 1. Exam is limited due to patient's body habitus and swelling, no convincing thrombus demonstrated of the visualized vessels. Electronically signed by: Jacobo Padilla MD (01/09/2020 3:56 PM) [id number]
--- NOTE | 2020-01-09 16:34 | RAD ---
CT study chest and abdomen and pelvis with contrast Clinical indications: Fever. TECHNIQUE: After IV infusion of 75 cc of Omnipaque 300, helical CT scanning of the chest and abdomen and pelvis was performed. GI contrast was administered per mouth. PQRS COMPLIANCE STATEMENT One or more of the following individualized dose reduction techniques were utilized for this study: 1. Automated exposure control 2. Adjustment of the mA and/or kV according to patient size 3. Use of iterative reconstruction technique COMPARISON: None available. CHEST CT: No enlarged thoracic lymphadenopathy is evident. GI contrast is seen within the esophagus. No focal aneurysmal dilatation or dissection of the thoracic aorta is seen. Heart size is normal and no pericardial effusion is seen. Mild linear atelectasis or scarring is seen within the left lung base. No consolidative pneumonia or lung mass or pleural effusion or pneumothorax is seen. The proximal bronchial tree is patent. No lytic process is seen. IMPRESSION: No acute abnormality. GI contrast is seen within the esophagus. This may be due to gastroesophageal reflux or esophageal dysmotility or distal esophageal stricture. ABDOMEN AND PELVIS CT: The liver and spleen and pancreas and gallbladder are normal. No extra hepatic biliary ductal dilatation is seen. No adrenal mass is evident. Both kidneys are normal without hydronephrosis or hydroureter or urinary tract stone. Urinary bladder is not distended. No focal aneurysmal dilatation of the abdominal aorta is seen. No enlarged abdominal or pelvic lymphadenopathy is evident. Moderate fecal retention is seen within the colon and rectum. No obstructive bowel pattern is seen. The terminal ileum is unremarkable. There are no CT findings of appendicitis. No diverticulitis is seen. No free air or free fluid or mesenteric edema is seen. No lytic process is seen. IMPRESSION: No acute abnormality. Electronically signed by: Gurmeet Mason MD (01/09/2020 4:31 PM) [id number]
[2020-01-09 19:08] VITALS: BP 103/63
[2020-01-09 22:38] VITALS: BP 111/65
[2020-01-10 03:10] VITALS: BP 126/69
[2020-01-10] MEDS: IV NORMAL SALINE 1000ML BAG 1,000 ML IV SCH ×4 (04:11→17:00)
[2020-01-10 04:34] LABS: BASO # 0.1 x10^3/uL (0.0-0.2); BASO % 1 % (0-3); EOS # 0.6 x10^3/uL (0.0-0.7); EOS % 6 % (0-3); HEMATOCRIT 32.4 % (39.0-53.0); HEMOGLOBIN 10.9 g/dL (13.0-17.5); LYMPH # 1.3 x10^3/uL (1.0-4.8); LYMPH % 15 % (24-48); MEAN CORPUSCULAR HEMOGLOBIN 28 pg (25-35); MEAN CORPUSCULAR HGB CONC 34 g/dL (31-37); MEAN CORPUSCULAR VOLUME 82 fL (79-100); MONO # 0.7 x10^3/uL (0.0-1.1); MONO % 8 % (0-9); NEUT # 6.4 x10^3/uL (1.8-7.7); NEUT % 71 % (31-73); PLATELET COUNT 268 x10^3/uL (140-400); RED BLOOD COUNT 3.95 x10^6/uL (4.30-5.70); RED CELL DISTRIBUTION WIDTH 15.1 % (11.5-14.5)
[2020-01-10 04:54] LABS: CALCIUM 8.6 mg/dL (8.5-10.1); CREATININE 0.8 mg/dL (0.7-1.3); GFR 129.5; POTASSIUM 3.8 mmol/L (3.5-5.1)
[2020-01-10 07:00] VITALS: BP 114/65
--- NOTE | 2020-01-10 08:19 | PDOC ---
[employer] PROGRESS NOTE Date of Service DOS: DATE: 01/10/20 TIME: 08:19 Chief Complaint Chief Complaint Fever Severe weakness. Rhabdomyolysis. Complicated urinary tract infection. Multiple sclerosis. Morbid obesity NSTEMI - trop 0.8 Transaminitis - 2/2 rhabdo Urinary retention - straight cath 3x daily History of Present Illness History of Present Illness Mr Samuels is a 39-year-old M w/ PMHx multiple sclerosis in 2011, he follows with Dr. Pedroza at , and is on a study medication of monthly injections for his multiple sclerosis. He's admitted with generalized weakness and found to have urinary tract infection. 01/07: Patient reports slight improvement in his weakness, working with physical therapy. His COVID-19 is negative. Discussed etiology of his MS flare might be secondary to acute infection. Echocardiogram pending. final urine culture with NGTD 01/08: Febrile overnight. No reduction in EF on echo. A bit short of breath and some RLE swelling. CT chest/abd/pelvis with no acute abnormalities. Still pretty weak, but able [place] [address], metabolic panel within normal limits. He is feeling pretty good today. No more fevers. Awaiting rehab Vitals/I&O Vitals/I&O: Vital Signs Date Time Temp Pulse Resp B/P (MAP) Pulse Ox O2 Delivery O2 Flow Rate FiO2 01/10/20 07:00 97.6 65 22 114/65 (81) 97 Room Air 97.6 I & O 01/09/20 01/09/20 01/10/20 15:00 23:00 07:00 Intake Total 580 ml 400 ml 500 ml Output Total 1950 ml 1700 ml 1650 ml Balance -1370 ml -1300 ml -1150 ml Physical Exam Physical Exam: GENERAL: Alert, oriented gentleman, not in distress. VITAL SIGNS: Stable HEENT: Both pupils are round and reacting. No conjunctival lesion. No lesion in mouth. NECK: Supple, no JVP, no lymphadenopathy. LUNGS: Clear. HEART: S1, S2 regular. ABDOMEN: Soft, nontender, no organomegaly. EXTREMITIES: No edema, cyanosis. SKIN: Unremarkable. NEUROLOGIC: The patient is alert, awake and appropriate. He does move all the extremities, but coordination is a problem and weakness is there. General: Alert, Oriented X3, Cooperative Heart: Regular rate Lungs: Other (Normal work of breathing, breathing comfortably on room air) Abdomen: Normal bowel sounds Extremities: No cyanosis Skin: No rashes, No significant lesion Labs Labs: Laboratory Tests Test 01/10/20 04:20 White Blood Count 9.0 x10^3/uL (4.0-11.0) Red Blood Count 3.95 x10^6/uL (4.30-5.70) Hemoglobin 10.9 g/dL (13.0-17.5) Hematocrit 32.4 % (39.0-53.0) Mean Corpuscular Volume 82 fL (79-100) Mean Corpuscular Hemoglobin 28 pg (25-35) Mean Corpuscular Hemoglobin Concent 34 g/dL (31-37) Red Cell Distribution Width 15.1 % (11.5-14.5) Platelet Count 268 x10^3/uL (140-400) Neutrophils (%) (Auto) 71 % (31-73) Lymphocytes (%) (Auto) 15 % (24-48) Monocytes (%) (Auto) 8 % (0-9) Eosinophils (%) (Auto) 6 % (0-3) Basophils (%) (Auto) 1 % (0-3) Neutrophils # (Auto) 6.4 x10^3/uL (1.8-7.7) Lymphocytes # (Auto) 1.3 x10^3/uL (1.0-4.8) Monocytes # (Auto) 0.7 x10^3/uL (0.0-1.1) Eosinophils # (Auto) 0.6 x10^3/uL (0.0-0.7) Basophils # (Auto) 0.1 x10^3/uL (0.0-0.2) Sodium Level 143 mmol/L (136-145) Potassium Level 3.8 mmol/L (3.5-5.1) Chloride Level 107 mmol/L (98-107) Carbon Dioxide Level 26 mmol/L (21-32) Anion Gap 10 (6-14) Blood Urea Nitrogen 11 mg/dL (8-26) Creatinine 0.8 mg/dL (0.7-1.3) Estimated GFR (Cockcroft-Gault) 129.5 Glucose Level 111 mg/dL (70-99) Calcium Level 8.6 mg/dL (8.5-10.1) Creatine Kinase 76637 U/L (39-308) Assessment and Plan Assessmemt and Plan Problems Medical Problems: (1) Fever Status: Acute (2) Generalized weakness Status: Acute (3) Non-ST elevation PR (NSTEMI) Status: Acute (4) Person under investigation for COVID-19 Status: Acute Comment Review of Relevant I have reviewed the following items khushi (where applicable) has been applied. Medications: Current Medications Medications (Trade) Dose Ordered Sig/Hayde Route PRN Reason Start Time Stop Time Status Last Admin Dose Admin Iohexol (Omnipaque 240 Mg/ml) 30 ml 1X ONCE PO 01/09/20 08:45 01/09/20 08:51 DC 01/09/20 08:45 Iohexol (Omnipaque 300 Mg/ml) 75 ml 1X ONCE IV 01/09/20 08:45 01/09/20 08:51 DC 01/09/20 11:22 Justifications for Admission Other Justification JOSEPH NAZARIO MD Jan 10, 2020 08:19
--- NOTE | 2020-01-10 08:52 | PDOC ---
Infectious Disease Note Subjective Subjective feeling good ROS ROS no n/v/d/ Vital Sign Vital Signs Vital Signs Date Time Temp Pulse Resp B/P (MAP) Pulse Ox O2 Delivery O2 Flow Rate FiO2 01/10/20 07:00 97.6 65 22 114/65 (81) 97 Room Air 97.6 Physical Exam PHYSICAL EXAM GENERAL: Alert, oriented gentleman, not in distress. VITAL SIGNS: Stable HEENT: Both pupils are round and reacting. No conjunctival lesion. No lesion in mouth. NECK: Supple, no JVP, no lymphadenopathy. LUNGS: Clear. HEART: S1, S2 regular. ABDOMEN: Soft, nontender, no organomegaly. EXTREMITIES: No edema, cyanosis. SKIN: Unremarkable. NEUROLOGIC: The patient is alert, awake and appropriate. He does move all the extremities, but coordination is a problem and weakness is there. Labs Lab Laboratory Tests Test 01/10/20 04:20 White Blood Count 9.0 x10^3/uL (4.0-11.0) Red Blood Count 3.95 x10^6/uL (4.30-5.70) Hemoglobin 10.9 g/dL (13.0-17.5) Hematocrit 32.4 % (39.0-53.0) Mean Corpuscular Volume 82 fL (79-100) Mean Corpuscular Hemoglobin 28 pg (25-35) Mean Corpuscular Hemoglobin Concent 34 g/dL (31-37) Red Cell Distribution Width 15.1 % (11.5-14.5) Platelet Count 268 x10^3/uL (140-400) Neutrophils (%) (Auto) 71 % (31-73) Lymphocytes (%) (Auto) 15 % (24-48) Monocytes (%) (Auto) 8 % (0-9) Eosinophils (%) (Auto) 6 % (0-3) Basophils (%) (Auto) 1 % (0-3) Neutrophils # (Auto) 6.4 x10^3/uL (1.8-7.7) Lymphocytes # (Auto) 1.3 x10^3/uL (1.0-4.8) Monocytes # (Auto) 0.7 x10^3/uL (0.0-1.1) Eosinophils # (Auto) 0.6 x10^3/uL (0.0-0.7) Basophils # (Auto) 0.1 x10^3/uL (0.0-0.2) Sodium Level 143 mmol/L (136-145) Potassium Level 3.8 mmol/L (3.5-5.1) Chloride Level 107 mmol/L (98-107) Carbon Dioxide Level 26 mmol/L (21-32) Anion Gap 10 (6-14) Blood Urea Nitrogen 11 mg/dL (8-26) Creatinine 0.8 mg/dL (0.7-1.3) Estimated GFR (Cockcroft-Gault) 129.5 Glucose Level 111 mg/dL (70-99) Calcium Level 8.6 mg/dL (8.5-10.1) Creatine Kinase 25983 U/L (39-308) Micro Microbiology 01/05/20 Blood Culture - Preliminary, Resulted NO GROWTH AFTER 1 DAY 01/04/20 Urine Culture - Final, Complete Objective Assessment IMPRESSION: 1. Severe weakness. 2. Rhabdomyolysis. 3. Fever. 4. Complicated urinary tract infection. 5. Multiple sclerosis. 6 BC coag neg staph, two species, contaminant Plan Plan of Care covid neg urine culture neg po augmentin x 5 days ok to d/c to Rehab ct chest ,abd and pelvis neg ultrasound neg repeat bc ok to d/c to rehab YUDY CARBONE MD Jan 10, 2020 08:52
[2020-01-10] MEDS: BACLOFEN 10 MG TABLET. PO SCH ×2 (09:15→12:57)
[2020-01-10] MEDS: ENOXAPARIN 40 MG/0.4 ML SYRINGE. SQ SCH (09:15)
[2020-01-10] MEDS: TAMSULOSIN 0.4 MG CAP.ER.24H. PO SCH (09:15)
[2020-01-10] MEDS: OMEGA-3 FATTY ACIDS/FISH OIL 1,000 MG CAPSULE. PO SCH (09:16)
[2020-01-10] MEDS: PANTOPRAZOLE 40 MG TABLET.DR. PO SCH (09:16)
[2020-01-10] MEDS: FUROSEMIDE 40 MG TABLET. PO SCH (09:16)
[2020-01-10] MEDS: AMOXICILLIN/K CLAV 875/125MG TABLET. PO SCH (09:16)
[2020-01-10] MEDS: CHOLECALCIFEROL (VITAMIN D3) 5,000 UNIT CAPSULE PO SCH (09:17)
[2020-01-10] MEDS: VITAMIN A 10,000 UNIT CAPSULE. PO SCH (09:26)
[2020-01-10] MEDS: VITS A & D/LANOLIN TOPICAL OINTMENT 42GM TUBE. TP SCH (09:26)
--- NOTE | 2020-01-10 09:42 | PDOC ---
PROGRESS NOTES Date of Service DATE: 01/10/20 TIME: 09:41 Assessment Problems Medical Problems: (1) Fever Status: Acute (2) Generalized weakness Status: Acute (3) Non-ST elevation ID (NSTEMI) Status: Acute (4) Person under investigation for COVID-19 Status: Acute Multiple sclerosis, suspect pseudo-exacerbation from infection. Lumbar spinal stenosis Cervical spondylosis on the MRI from 2 years ago Urinary tract infection Non-STEMI Rhabdomyolysis COVID negative Plan Rehabilitation modalities, awaiting transfer to [facility] rehab Follow-up as scheduled with his plate painter at for epidural injection lumbar spine Follow-up with Dr. Pedroza, neurology Subjective Has some back and right leg pain Objective Vital Signs Date Time Temp Pulse Resp B/P (MAP) Pulse Ox O2 Delivery O2 Flow Rate FiO2 01/10/20 07:00 97.6 65 22 114/65 (81) 97 Room Air 97.6 Intake and Output 01/10/20 07:00 Intake Total 1480 ml Output Total 5300 ml Balance -3820 ml Intake Oral 1480 ml Output Urine Total 5300 ml PHYSICAL EXAM Alert. Oriented to time, place and person. PERRL. EOMI. left exotropia intermittently CN: no focal findings. Muscle tone: normal. Muscle strength: 5-/5 strength in arms, 4/5 left leg, 3/5 right leg, with normal tone and bulk. DTR: 2+ Plantar reflex: flexor Gait: not examined in bed. Sensory exam: no abnormal findings. No cerebellar signs elicited. Review of Relevant I have reviewed the following items khushi (where applicable) has been applied. Labs Laboratory Tests Test 01/09/20 06:35 01/10/20 04:20 White Blood Count 9.4 x10^3/uL (4.0-11.0) 9.0 x10^3/uL (4.0-11.0) Red Blood Count 3.96 x10^6/uL (4.30-5.70) 3.95 x10^6/uL (4.30-5.70) Hemoglobin 11.0 g/dL (13.0-17.5) 10.9 g/dL (13.0-17.5) Hematocrit 32.3 % (39.0-53.0) 32.4 % (39.0-53.0) Mean Corpuscular Volume 81 fL (79-100) 82 fL (79-100) Mean Corpuscular Hemoglobin 28 pg (25-35) 28 pg (25-35) Mean Corpuscular Hemoglobin Concent 34 g/dL (31-37) 34 g/dL (31-37) Red Cell Distribution Width 15.0 % (11.5-14.5) 15.1 % (11.5-14.5) Platelet Count 233 x10^3/uL (140-400) 268 x10^3/uL (140-400) Neutrophils (%) (Auto) 74 % (31-73) 71 % (31-73) Lymphocytes (%) (Auto) 11 % (24-48) 15 % (24-48) Monocytes (%) (Auto) 9 % (0-9) 8 % (0-9) Eosinophils (%) (Auto) 6 % (0-3) 6 % (0-3) Basophils (%) (Auto) 1 % (0-3) 1 % (0-3) Neutrophils # (Auto) 6.9 x10^3/uL (1.8-7.7) 6.4 x10^3/uL (1.8-7.7) Lymphocytes # (Auto) 1.0 x10^3/uL (1.0-4.8) 1.3 x10^3/uL (1.0-4.8) Monocytes # (Auto) 0.8 x10^3/uL (0.0-1.1) 0.7 x10^3/uL (0.0-1.1) Eosinophils # (Auto) 0.6 x10^3/uL (0.0-0.7) 0.6 x10^3/uL (0.0-0.7) Basophils # (Auto) 0.0 x10^3/uL (0.0-0.2) 0.1 x10^3/uL (0.0-0.2) Sodium Level 139 mmol/L (136-145) 143 mmol/L (136-145) Potassium Level 3.6 mmol/L (3.5-5.1) 3.8 mmol/L (3.5-5.1) Chloride Level 106 mmol/L (98-107) 107 mmol/L (98-107) Carbon Dioxide Level 26 mmol/L (21-32) 26 mmol/L (21-32) Anion Gap 7 (6-14) 10 (6-14) Blood Urea Nitrogen 10 mg/dL (8-26) 11 mg/dL (8-26) Creatinine 0.7 mg/dL (0.7-1.3) 0.8 mg/dL (0.7-1.3) Estimated GFR (Cockcroft-Gault) 151.1 129.5 Glucose Level 101 mg/dL (70-99) 111 mg/dL (70-99) Calcium Level 8.8 mg/dL (8.5-10.1) 8.6 mg/dL (8.5-10.1) Total Bilirubin 0.3 mg/dL (0.2-1.0) Direct Bilirubin 0.1 mg/dL (0.0-0.2) Aspartate Amino Transf (AST/SGOT) 276 U/L (15-37) Alanine Aminotransferase (ALT/SGPT) 125 U/L (16-63) Alkaline Phosphatase 58 U/L (46-116) Creatine Kinase 38806 U/L (39-308) 56738 U/L (39-308) Total Protein 5.2 g/dL (6.4-8.2) Albumin 2.1 g/dL (3.4-5.0) Laboratory Tests Test 01/10/20 04:20 White Blood Count 9.0 x10^3/uL (4.0-11.0) Red Blood Count 3.95 x10^6/uL (4.30-5.70) Hemoglobin 10.9 g/dL (13.0-17.5) Hematocrit 32.4 % (39.0-53.0) Mean Corpuscular Volume 82 fL (79-100) Mean Corpuscular Hemoglobin 28 pg (25-35) Mean Corpuscular Hemoglobin Concent 34 g/dL (31-37) Red Cell Distribution Width 15.1 % (11.5-14.5) Platelet Count 268 x10^3/uL (140-400) Neutrophils (%) (Auto) 71 % (31-73) Lymphocytes (%) (Auto) 15 % (24-48) Monocytes (%) (Auto) 8 % (0-9) Eosinophils (%) (Auto) 6 % (0-3) Basophils (%) (Auto) 1 % (0-3) Neutrophils # (Auto) 6.4 x10^3/uL (1.8-7.7) Lymphocytes # (Auto) 1.3 x10^3/uL (1.0-4.8) Monocytes # (Auto) 0.7 x10^3/uL (0.0-1.1) Eosinophils # (Auto) 0.6 x10^3/uL (0.0-0.7) Basophils # (Auto) 0.1 x10^3/uL (0.0-0.2) Sodium Level 143 mmol/L (136-145) Potassium Level 3.8 mmol/L (3.5-5.1) Chloride Level 107 mmol/L (98-107) Carbon Dioxide Level 26 mmol/L (21-32) Anion Gap 10 (6-14) Blood Urea Nitrogen 11 mg/dL (8-26) Creatinine 0.8 mg/dL (0.7-1.3) Estimated GFR (Cockcroft-Gault) 129.5 Glucose Level 111 mg/dL (70-99) Calcium Level 8.6 mg/dL (8.5-10.1) Creatine Kinase 51067 U/L (39-308) Microbiology 01/05/20 Blood Culture - Preliminary, Resulted NO GROWTH AFTER 4 DAYS 01/04/20 Urine Culture - Final, Complete Medications Current Medications Sodium Chloride 2,400 ml @ 2,400 mls/hr Q1H IV Last administered on 01/04/20at 21:04; Start 01/04/20 at 18:35; Stop 01/05/20 at 01:45; Status DC Acetaminophen (Tylenol) 1,000 mg 1X ONCE PO Last administered on 01/04/20at 18:49; Start 01/04/20 at 18:45; Stop 01/04/20 at 18:46; Status DC Azithromycin 250 ml @ 250 mls/hr 1X ONCE IV Last administered on 01/04/20at 21:05; Start 01/04/20 at 20:30; Stop 01/04/20 at 21:29; Status DC Ceftriaxone Sodium (Rocephin) 1 gm 1X ONCE IVP Last administered on 01/04/20at 21:05; Start 01/04/20 at 20:30; Stop 01/04/20 at 20:31; Status DC Aspirin (Aurora Aspirin) 325 mg 1X ONCE PO Last administered on 01/04/20at 21:04; Start 01/04/20 at 20:30; Stop 01/04/20 at 20:31; Status DC Enoxaparin Sodium (Lovenox Per Pharmacy Treatment Dosing) 1 each 1X STAT [facility] ; Start 01/04/20 at 20:28; Stop 01/04/20 at 20:31; Status DC Enoxaparin Sodium (Lovenox 150mg Syringe) 150 mg 1X ONCE SQ Last administered on 01/04/20at 21:04; Start 01/04/20 at 20:45; Stop 01/04/20 at 20:46; Status DC Ondansetron HCl (Zofran) 4 mg PRN Q8HRS PRN IV NAUSEA/VOMITING; Start 01/04/20 at 20:45; Stop 01/04/20 at 22:51; Status DC Morphine Sulfate (Morphine Sulfate) 4 mg PRN Q2HR PRN IV PAIN; Start 01/04/20 at 20:45; Stop 01/05/20 at 20:44; Status DC Acetaminophen (Tylenol) 650 mg PRN Q4HRS PRN PO FEVER > 100.3'F; Start 01/04/20 at 20:45; Stop 01/04/20 at 22:51; Status DC Sodium Chloride (Normal Saline Flush) 3 ml QSHIFT PRN IV AFTER MEDS AND BLOOD DRAWS; Start 01/04/20 at 22:45 Sodium Chloride 1,000 ml @ 100 mls/hr Q10H IV Last administered on 01/05/20at 18:12; Start 01/04/20 at 22:39; Stop 01/06/20 at 15:44; Status DC Ondansetron HCl (Zofran) 4 mg PRN Q4HRS PRN IV NAUSEA/VOMITING 1ST CHOICE; Start 01/04/20 at 22:45 Acetaminophen (Tylenol) 650 mg PRN Q4HRS PRN PO TEMP OVER 100.4F OR MILD PAIN Last administered on 01/09/20at 08:55; Start 01/04/20 at 22:45 Acetaminophen (Tylenol Supp) 650 mg PRN Q4HRS PRN [place] TEMP OVER 100.4F OR MILD PAIN; Start 9/12/20 at 22:45 Al Hydroxide/Mg Hydroxide (Mylanta Plus Xs) 30 ml PRN DAILY PRN PO HEARTBURN / GAS; Start 01/04/20 at 22:45 Clonidine HCl (Catapres) 0.1 mg PRN Q6HRS PRN PO SBP>160 OR DBP>90; Start 01/04/20 at 22:45 Sodium Monofluorophosphate (Fleet Adult) 133 ml PRN DAILY PRN [place] CONSTIPATION 1ST CHOICE; Start 01/04/20 at 22:45; Stop 01/08/20 at 11:23; Status DC Docusate Sodium (Colace) 100 mg PRN BID PRN PO HARD STOOLS; Start 01/04/20 at 22:45 Albuterol Sulfate (Ventolin Neb Soln) 2.5 mg PRN Q4HRS PRN NEB SHORTNESS OF BREATH; Start 01/04/20 at 22:45 Guaifenesin (Robitussin) 200 mg PRN Q4HRS PRN PO COUGH; Start 01/04/20 at 22:45 Lorazepam (Ativan) 0.5 mg PRN Q4HRS PRN PO ANXIETY / AGITATION Last administered on 01/08/20at 20:17; Start 01/04/20 at 22:45 Enoxaparin Sodium (Lovenox 40mg Syringe) 40 mg BID SQ Last administered on 01/10/20at 09:15; Start 01/04/20 at 22:45 Ceftriaxone Sodium (Rocephin) 1 gm Q24H IVP ; Start 01/05/20 at 20:00; Stop 01/05/20 at 13:40; Status DC Piperacillin Sod/ Tazobactam Sod 3.375 gm/Sodium Chloride 50 ml @ 100 mls/hr Q6HRS IV Last administered on 01/07/20at 22:38; Start 01/05/20 at 18:00; Stop 01/08/20 at 08:40; Status DC Lactobacillus Rhamnosus (Culturelle) 1 cap BID PO Last administered on 01/06/20at 08:56; Start 01/05/20 at 21:00; Stop 01/06/20 at 14:43; Status DC Daptomycin 650 mg/ Sodium Chloride 50 ml @ 100 mls/hr 1X ONCE IV Last administered on 01/05/20at 19:54; Start 01/05/20 at 19:30; Stop 01/05/20 at 19:59; Status DC Sodium Chloride 2,250 ml @ 2,250 mls/hr Q1H IV Last administered on 01/06/20at 04:15; Start 01/05/20 at 20:21; Stop 01/06/20 at 14:41; Status DC Sodium Chloride 500 ml @ 1,000 mls/hr PRN Q30MIN PRN IV SEE COMMENTS; Start 01/05/20 at 20:30 Sodium Chloride 1,000 ml @ 200 mls/hr Q5H IV Last administered on 01/10/20at 07:00; Start 01/05/20 at 22:00 Furosemide (Lasix) 40 mg DAILY PO Last administered on 01/10/20 09:16; Start 01/06/20 at 12:00 Tamsulosin HCl (Flomax) 0.8 mg DAILY PO Last administered on 01/10/20 09:15; Start 01/06/20 at 12:00 Baclofen (Lioresal) 20 mg TID PO Last administered on 01/10/20 09:15; Start 01/06/20 at 14:00 Vitamin D (Vitamin D3) 5,000 unit DAILY PO Last administered on 01/10/20 09:17; Start 01/06/20 at 12:00 Pantoprazole Sodium (Protonix) 40 mg DAILYAC PO Last administered on 01/10/20 09:16; Start 01/06/20 at 11:30 Fish Oil (Fish Oil) 1,000 mg DAILY PO Last administered on 01/10/20 09:16; Start 01/06/20 at 12:00 Vitamin A 10,000 unit DAILY PO Last administered on 01/10/20 09:26; Start 01/06/20 at 12:00 Vitamin A/Vitamin D (Vitamin A & D Ointment) 1 leida BID TP Last administered on 01/10/20 09:26; Start 01/06/20 at 21:00 Amoxicillin/ Clavulanate Potassium (Augmentin 875/ 125mg) 1 tab BID PO Last administered on 01/10/20 09:16; Start 01/08/20 at 09:00 Iohexol (Omnipaque 240 Mg/ml) 30 ml 1X ONCE PO Last administered on 01/09/20at 08:45; Start 01/09/20 at 08:45; Stop 01/09/20 at 08:51; Status DC Iohexol (Omnipaque 300 Mg/ml) 75 ml 1X ONCE IV Last administered on 01/09/20at 11:22; Start 01/09/20 at 08:45; Stop 01/09/20 at 08:51; Status DC Active Scripts Active Reported D3-50 (Cholecalciferol (Vitamin D3)) 50,000 Unit Capsule 125 Mcg PO DAILY Fish Oil 1,000 Mg Softgel ([place]-3/Dha/Epa/Fish Oil) 1 Each Capsule 1 Each PO DAILY Furosemide 40 Mg Tablet 40 Mg PO DAILY Nexium Capsule (Esomeprazole Magnesium) 40 Mg Capsule.dr 40 Mg PO DAILYAC Vitamin A 8,000 Unit Capsule 2,400 Mcg PO DAILY Myrbetriq (Mirabegron) 25 Mg Tab.er.24h 25 Mg PO DAILY Dalfampridine ER (Dalfampridine) 10 Mg Tab.er.12h 10 Mg PO Q12HR Baclofen 20 Mg Tablet 1 Tab PO TID Tamsulosin Hcl 0.4 Mg Cap.er.24h 2 Cap PO DAILY Vitals/I & O Vital Sign - Last 24 Hours 01/09/20 01/09/20 01/09/20 01/09/20 11:00 15:00 19:08 20:00 Temp 98.6 99.2 100.1 98.6 99.2 100.1 Pulse 80 72 92 Resp 20 20 16 B/P (MAP) 124/47 (72) 115/70 (85) 103/63 (76) Pulse Ox 99 98 95 O2 Delivery Room Air Room Air Room Air Room Air 01/09/20 01/10/20 01/10/20 22:38 03:10 07:00 Temp 98.9 99.1 97.6 98.9 99.1 97.6 Pulse 93 91 65 Resp 16 16 22 B/P (MAP) 111/65 (80) 126/69 (88) 114/65 (81) Pulse Ox 97 98 97 O2 Delivery Room Air Room Air Room Air Intake and Output 01/09/20 01/09/20 01/10/20 15:00 23:00 07:00 Intake Total 580 ml 400 ml 500 ml Output Total 1950 ml 1700 ml 1650 ml Balance -1370 ml -1300 ml -1150 ml Justicifation of Admission Dx: Justifications for Admission: Justification of Admission Dx: Yes RADHA MUNOZ MD Jan 10, 2020 09:42
[2020-01-10 11:00] VITALS: BP 100/60
[2020-01-10 15:00] VITALS: BP 115/70
[2020-01-10] MEDS ORDERED: ALBU2.5V8 NEB (15:54)
[2020-01-10] MEDS ORDERED: ACET325T9 PO (15:54)
[2020-01-10] MEDS ORDERED: AMOX1TAB11 PO (15:54)
--- NOTE | 2020-01-10 16:08 | SNU/HH DC ---
DISCHARGE ORDERS DISCHARGE INFORMATION: DISCHARGE DATE: Jan 10, 2020 FINAL DIAGNOSIS Problems Medical Problems: (1) Fever Status: Acute (2) Generalized weakness Status: Acute (3) Non-ST elevation IA (NSTEMI) Status: Acute (4) Person under investigation for COVID-19 Status: Acute CONDITION ON DISCHARGE: Stable CODE STATUS: Code Status: Full LONG-TERM: SNF STAY <30 DAYS: Yes POST DISCHARGE ORDERS: ACTIVITY ORDERS: Activity as tolerated WEIGHT BEARING STATUS: As tolerated DIET AFTER DISCHARGE: Regular CHECKS AFTER DISCHARGE: CHECKS AFTER DISCHARGE: Check blood press - daily FOLLOW-UP: Additional Instructions: Follow-up as scheduled with his vehicle painter at for epidural injection lumbar spine Follow-up with Dr. Pedroza, neurology Augmentin 5 days TREATMENT/EQUIPMENT ORDERS: ADAPTIVE EQUIPMENT NEEDED: Front wheeled walker Physical Therapy For: Evalulation/Treatment Occupational Therapy For: Evaluation/Treatment Speech Language Pathology For: Evaluation/Treatment DISCHARGE MEDICATIONS: Home Meds Active Scripts Acetaminophen (TYLENOL) 325 Mg Tablet, 650 MG PO PRN Q4HRS PRN for TEMP OVER 100.4F OR MILD PAIN for 30 Days, #120 TAB Prov:JOSEPH NAZARIO MD 01/10/20 Albuterol Sulfate (Proair Hfa) 8.5 Gm Hfa.aer.ad, 2.5 MG NEB PRN Q4HRS PRN for SHORTNESS OF BREATH for 30 Days, #1 INHALER Prov:JOSEPH NAZARIO MD 01/10/20 Amoxicillin/Potassium Clav (AMOX TR-K CLV 875-125 MG TAB) 1 Each Tablet, 1 TAB PO BID for Bronchitis for 5 Days, #10 TAB Prov:JOSEPH NAZARIO MD 01/10/20 Reported Medications Cholecalciferol (Vitamin D3) (D3-50) 50,000 Unit Capsule, 125 MCG PO DAILY for supplement, CAP 01/05/20 [place]-3/Dha/Epa/Fish Oil (FISH OIL 1,000 MG SOFTGEL) 1 Each Capsule, 1 EACH PO DAILY for supplement, CAP 01/05/20 Furosemide (FUROSEMIDE) 40 Mg Tablet, 40 MG PO DAILY for swelling, TAB 01/05/20 Esomeprazole Magnesium (NEXIUM CAPSULE) 40 Mg Capsule.dr, 40 MG PO DAILYAC for gerd, #30 CAP 0 Refills 01/05/20 Vitamin A (VITAMIN A) 8,000 Unit Capsule, 2400 MCG PO DAILY for supplement, CAP 01/05/20 Mirabegron (MYRBETRIQ) 25 Mg Tab.er.24h, 25 MG PO DAILY for bladder, TAB.SR 01/05/20 Baclofen (BACLOFEN) 20 Mg Tablet, 1 TAB PO TID for muscle spasms, #90 TAB 2 Refills 04/09/18 Tamsulosin Hcl (TAMSULOSIN HCL) 0.4 Mg Cap.er.24h, 2 CAP PO DAILY for helps incontinence, #30 CAP 5 Refills 04/09/18 Discontinued Reported Medications Dalfampridine (Dalfampridine ER) 10 Mg Tab.er.12h, 10 MG PO Q12HR for MS, TAB.SR 04/09/18 Solifenacin Succinate (VESICARE) 10 Mg Tablet, 1 TAB PO DAILY for incontinence, #30 TAB 5 Refills 04/09/18 JOSEPH NAZARIO MD Jan 10, 2020 16:08
--- NOTE | 2020-01-10 16:17 | PDOC3 ---
Discharge Summary Visit Information Date of Admission: Jan 04, 2020 Date of Discharge: Jan 10, 2020 Admitting Diagnosis: Rhabdomyolysis Final Diagnosis Problems Medical Problems: (1) Fever Status: Acute (2) Generalized weakness Status: Acute (3) Non-ST elevation [place] (NSTEMI) Status: Acute (4) Person under investigation for COVID-19 Status: Acute Brief Hospital Course Allergies Allergies Coded Allergies Type Severity Reaction Last Updated Verified No Known Drug Allergies 04/09/18 No Vital Signs Vital Signs Date Time Temp Pulse Resp B/P (MAP) Pulse Ox O2 Delivery O2 Flow Rate FiO2 01/10/20 15:00 97.4 88 20 115/70 (85) 98 Room Air 97.4 Lab Results Laboratory Tests Test 01/09/20 06:35 01/10/20 04:20 White Blood Count 9.4 x10^3/uL (4.0-11.0) 9.0 x10^3/uL (4.0-11.0) Red Blood Count 3.96 x10^6/uL (4.30-5.70) 3.95 x10^6/uL (4.30-5.70) Hemoglobin 11.0 g/dL (13.0-17.5) 10.9 g/dL (13.0-17.5) Hematocrit 32.3 % (39.0-53.0) 32.4 % (39.0-53.0) Mean Corpuscular Volume 81 fL (79-100) 82 fL (79-100) Mean Corpuscular Hemoglobin 28 pg (25-35) 28 pg (25-35) Mean Corpuscular Hemoglobin Concent 34 g/dL (31-37) 34 g/dL (31-37) Red Cell Distribution Width 15.0 % (11.5-14.5) 15.1 % (11.5-14.5) Platelet Count 233 x10^3/uL (140-400) 268 x10^3/uL (140-400) Neutrophils (%) (Auto) 74 % (31-73) 71 % (31-73) Lymphocytes (%) (Auto) 11 % (24-48) 15 % (24-48) Monocytes (%) (Auto) 9 % (0-9) 8 % (0-9) Eosinophils (%) (Auto) 6 % (0-3) 6 % (0-3) Basophils (%) (Auto) 1 % (0-3) 1 % (0-3) Neutrophils # (Auto) 6.9 x10^3/uL (1.8-7.7) 6.4 x10^3/uL (1.8-7.7) Lymphocytes # (Auto) 1.0 x10^3/uL (1.0-4.8) 1.3 x10^3/uL (1.0-4.8) Monocytes # (Auto) 0.8 x10^3/uL (0.0-1.1) 0.7 x10^3/uL (0.0-1.1) Eosinophils # (Auto) 0.6 x10^3/uL (0.0-0.7) 0.6 x10^3/uL (0.0-0.7) Basophils # (Auto) 0.0 x10^3/uL (0.0-0.2) 0.1 x10^3/uL (0.0-0.2) Sodium Level 139 mmol/L (136-145) 143 mmol/L (136-145) Potassium Level 3.6 mmol/L (3.5-5.1) 3.8 mmol/L (3.5-5.1) Chloride Level 106 mmol/L (98-107) 107 mmol/L (98-107) Carbon Dioxide Level 26 mmol/L (21-32) 26 mmol/L (21-32) Anion Gap 7 (6-14) 10 (6-14) Blood Urea Nitrogen 10 mg/dL (8-26) 11 mg/dL (8-26) Creatinine 0.7 mg/dL (0.7-1.3) 0.8 mg/dL (0.7-1.3) Estimated GFR (Cockcroft-Gault) 151.1 129.5 Glucose Level 101 mg/dL (70-99) 111 mg/dL (70-99) Calcium Level 8.8 mg/dL (8.5-10.1) 8.6 mg/dL (8.5-10.1) Total Bilirubin 0.3 mg/dL (0.2-1.0) Direct Bilirubin 0.1 mg/dL (0.0-0.2) Aspartate Amino Transf (AST/SGOT) 276 U/L (15-37) Alanine Aminotransferase (ALT/SGPT) 125 U/L (16-63) Alkaline Phosphatase 58 U/L (46-116) Creatine Kinase 09267 U/L (39-308) 28642 U/L (39-308) Total Protein 5.2 g/dL (6.4-8.2) Albumin 2.1 g/dL (3.4-5.0) Laboratory Tests Test 01/10/20 04:20 White Blood Count 9.0 x10^3/uL (4.0-11.0) Red Blood Count 3.95 x10^6/uL (4.30-5.70) Hemoglobin 10.9 g/dL (13.0-17.5) Hematocrit 32.4 % (39.0-53.0) Mean Corpuscular Volume 82 fL (79-100) Mean Corpuscular Hemoglobin 28 pg (25-35) Mean Corpuscular Hemoglobin Concent 34 g/dL (31-37) Red Cell Distribution Width 15.1 % (11.5-14.5) Platelet Count 268 x10^3/uL (140-400) Neutrophils (%) (Auto) 71 % (31-73) Lymphocytes (%) (Auto) 15 % (24-48) Monocytes (%) (Auto) 8 % (0-9) Eosinophils (%) (Auto) 6 % (0-3) Basophils (%) (Auto) 1 % (0-3) Neutrophils # (Auto) 6.4 x10^3/uL (1.8-7.7) Lymphocytes # (Auto) 1.3 x10^3/uL (1.0-4.8) Monocytes # (Auto) 0.7 x10^3/uL (0.0-1.1) Eosinophils # (Auto) 0.6 x10^3/uL (0.0-0.7) Basophils # (Auto) 0.1 x10^3/uL (0.0-0.2) Sodium Level 143 mmol/L (136-145) Potassium Level 3.8 mmol/L (3.5-5.1) Chloride Level 107 mmol/L (98-107) Carbon Dioxide Level 26 mmol/L (21-32) Anion Gap 10 (6-14) Blood Urea Nitrogen 11 mg/dL (8-26) Creatinine 0.8 mg/dL (0.7-1.3) Estimated GFR (Cockcroft-Gault) 129.5 Glucose Level 111 mg/dL (70-99) Calcium Level 8.6 mg/dL (8.5-10.1) Creatine Kinase 63144 U/L (39-308) Brief Hospital Course Mr Samuels is a 39-year-old M w/ PMHx multiple sclerosis in 2011, he follows with Dr. Pedroza at , and is on a study medication of monthly injections for his multiple sclerosis. He's admitted with generalized weakness and found to have febrile illness and large rhabdomyolysis. 01/07: Patient reports slight improvement in his weakness, working with physical therapy. His COVID-19 is negative. Discussed etiology of his MS flare might be secondary to acute infection. Echocardiogram Technically difficult study. The left ventricular systolic function is normal. The Ejection Fraction is 55-60%. There is normal LV segmental wall motion. There is no evidence of significant pericardial effusion. final urine culture with NGTD 01/08: Febrile overnight. No reduction in EF on echo. A bit short of breath and some RLE swelling. CT chest/abd/pelvis with no acute abnormalities. Still pretty weak, but [place] [address], metabolic panel within normal limits. He is feeling pretty good today. No more fevers. Awaiting rehab Consults: Cardiology, Neurology, and ID Problem list: Fever Severe weakness. Rhabdomyolysis. Complicated urinary tract infection. Multiple sclerosis. Morbid obesity NSTEMI - trop 0.8 Transaminitis - 2/2 rhabdo Urinary retention - straight cath 3x daily Greater than 30 minutes spent on d/c Discharge Information Condition at Discharge: Improved Follow Up: Weeks (1) Disposition/Orders: D/C to Another Facility ([facility] [place] rehab) Scheduled Amoxicillin/Potassium Clav (Amox Tr-K Clv 875-125 Mg Tab) 1 Each Tablet, 1 TAB PO BID for Bronchitis for 5 Days, #10 Prescribed by: JOSEPH NAZARIO MD on 01/10/20 7174 Baclofen (Baclofen) 20 Mg Tablet, 1 TAB PO TID for muscle spasms, #90 Ref 2 (Reported) Entered as Reported by: JIMMY ADAMSON on 04/09/18 1326 Last Action: Converted on 01/06/201123 by URIEL ESTEVEZ MD Cholecalciferol (Vitamin D3) (D3-50) 50,000 Unit Capsule, 125 MCG PO DAILY for supplement, (Reported) Entered as Reported by: LUCRECIA MCCARTHY on 01/05/2018 Last Action: Converted on 01/06/201123 by URIEL ESTEVEZ MD Esomeprazole Magnesium (Nexium Capsule) 40 Mg Capsule.dr, 40 MG PO DAILYAC for gerd, #30 Ref 0 (Reported) Entered as Reported by: LUCRECIA MCCARTHY on 01/05/2016 Last Action: Converted on 01/06/201123 by URIEL ESTEVEZ MD Furosemide (Furosemide) 40 Mg Tablet, 40 MG PO DAILY for swelling, (Reported) Entered as Reported by: LUCRECIA MCCARTHY on 01/05/2016 Last Action: Continued on 01/06/201123 by URIEL ESTEVEZ MD Mirabegron (Myrbetriq) 25 Mg Tab.er.24h, 25 MG PO DAILY for bladder, (Reported) Entered as Reported by: LUCRECIA MCCARTHY on 01/05/2016 Last Action: HELD on 01/06/201123 by URIEL ESTEVEZ MD [place]-3/Dha/Epa/Fish Oil (Fish Oil 1,000 Mg Softgel) 1 Each Capsule, 1 EACH PO DAILY for supplement, (Reported) Entered as Reported by: LUCRECIA MCCARTHY on 01/05/2016 Last Action: Converted on 01/06/201123 by URIEL ESTEVEZ MD Tamsulosin Hcl (Tamsulosin Hcl) 0.4 Mg Cap.er.24h, 2 CAP PO DAILY for helps incontinence, #30 Ref 5 (Reported) Entered as Reported by: JIMMY ADAMSON on 04/09/18 1326 Last Action: Continued on 01/06/201123 by URIEL ESTEVEZ MD Vitamin A (Vitamin A) 8,000 Unit Capsule, 2,400 MCG PO DAILY for supplement, (Reported) Entered as Reported by: LUCRECIA MCCARTHY on 01/05/2016 Last Action: Converted on 01/06/201123 by URIEL ESTEVEZ MD Scheduled PRN Acetaminophen (Tylenol) 325 Mg Tablet, 650 MG PO PRN Q4HRS PRN for TEMP OVER 100.4F OR MILD PAIN for 30 Days, #120 Prescribed by: JOSEPH NAZARIO MD on 01/10/20 1554 Albuterol Sulfate (Proair Hfa) 8.5 Gm Hfa.aer.ad, 2.5 MG NEB PRN Q4HRS PRN for SHORTNESS OF BREATH for 30 Days, #1 Prescribed by: JOSEPH NAZARIO MD on 01/10/20 1554 Discontinued Medications Dalfampridine (Dalfampridine ER) 10 Mg Tab.er.12h, 10 MG PO Q12HR for MS, (Reported) Entered as Reported by: JIMMY ADMASON on 04/09/18 1357 Last Action: HELD on 01/06/20 1124 by URIEL ESTEVEZ MD Solifenacin Succinate (Vesicare) 10 Mg Tablet, 1 TAB PO DAILY for incontinence, #30 Ref 5 (Reported) Entered as Reported by: JIMMY ADAMSON on 04/09/18 1326 Last Action: Discontinued on 01/05/20 0017 by LUCRECIA MCCARTHY Justicifation of Admission Dx: Justifications for Admission: Justification of Admission Dx: Yes JOSEPH NAZARIO MD Jan 10, 2020 16:17
--- NOTE | 2020-01-10 16:21 | NUR ---
Wound/Ostomy Care Wound Type/Assessment: Patient seen for follow up wound care for stage III pressure ulcers to bilateral buttocks. Wounds cleansed, assessed,measured, and photographed. Treatment Recommendations/Plan: A&D ointment applied to bilateral buttocks Education provided: pt educated on turning from side to side q2hr Offloading surface/device: purple wedge and i Recommended Referrals/Tests: Discharge Recommendations for dressings: Addendum: 01/10/20 at 1642 by HEIDI LEE RN Offloading surface/device: purple wedge and pillows to offload Recommended Referrals/Tests: n/a Discharge Recommendations for dressings: same as above, continue with A&D ointment.
--- NOTE | 2020-01-10 18:22 | NUR ---
[facility] REPORT [facility]. [phone].
--- NOTE | 2020-01-10 19:30 | NUR ---
Spoke to nakita with social work to clarify patients transport arrangements and the pt will be picked up by stretcher transport set up through [facility]. packet and report with Patricia GURROLA
[2020-01-10 20:25] VITALS: BP 109/56
--- NOTE | 2020-01-10 20:25 | NUR ---
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 Report was called and all discharge assessment/interventions completed per report from Teri GURROLA. Velázquez contents emptied and documented. Discharge vitals recorded. Patient's mother at bedside with all belongings packed up and TANI Aguilar assisting her with belongings to her car. Discharge packet given to [facility] transporter. Patient and his mother denies any concerns with transfer plan.
== END 2020-01-10 20:30 | DRG 871 ==
LOC: ER 18:11 → 6 SOUTH 22:06 → 2 NORTH 01-07 14:08
PROVIDERS: ADMIT Family Medicine; ATTEND Family Medicine
DX: A41.9 Sepsis, unspecified organism (principal); I21.4 Non-ST elevation (NSTEMI) myocardial infarction; N39.0 Urinary tract infection, site not specified; Z68.42 Body mass index [BMI] 45.0-49.9, adult; M62.82 Rhabdomyolysis; Z20.828 Contact with and (suspected) exposure to other viral communicable diseases; M50.321 Other cervical disc degeneration at C4-C5 level; M48.02 Spinal stenosis, cervical region; M48.061 Spinal stenosis, lumbar region without neurogenic claudication; M47.812 Spondylosis without myelopathy or radiculopathy, cervical region; E88.81 Metabolic syndrome and other insulin resistance; G35 Multiple sclerosis; R74.0 Nonspecific elevation of levels of transaminase and lactic acid dehydrogenase [LDH]; G89.29 Other chronic pain; W18.30XA Fall on same level, unspecified, initial encounter; Y92.238 Other place in hospital as the place of occurrence of the external cause; M54.9 Dorsalgia, unspecified; F41.9 Anxiety disorder, unspecified; E11.9 Type 2 diabetes mellitus without complications; I10 Essential (primary) hypertension; M25.78 Osteophyte, vertebrae; E78.5 Hyperlipidemia, unspecified; E66.01 Morbid (severe) obesity due to excess calories; Y93.89 Activity, other specified; Z87.891 Personal history of nicotine dependence; Z82.49 Family history of ischemic heart disease and other diseases of the circulatory system; Y99.8 Other external cause status; Z83.49 Family history of other endocrine, nutritional and metabolic diseases
CPT/HCPCS: 36415; 51702; 71045; 71260; 74177; 80048; 80053; 80061; 80076; 81001; 82550; 82553; 82728; 83605; 83735; 83880; 84145; 84443; 84484; 85007; 85025; 85379; 85384; 85610; 85730; 87040; 87077; 87086; 87205; 87804; 93005; 93306; 93971; 94760; 96365; 96366; 96372; 96375; J0456; J0696; J0878; J1650; J2543; J7030; Q9966; Q9967; 97110-GO; 97110-GP; 97530-GO; 97530-GP; 97535-GO; 99285-25; G0378; U0003-CS